=== PATIENT | male | born 1960 | race Caucasian/White ===

== ENCOUNTER 2020-07-14 14:12 | Emergency (ER) | payer OTHER, SELFPAY ==
[2020-07-14 14:22] VITALS: BP 132/88; PULSE 115; RESP 14; TEMP 37.3; O2SAT 98; BMI 17.7
--- NOTE | 2020-07-14 14:27 | XR_ITS ---
WS: [id number] EXAM: AP CHEST: PORTABLE UPRIGHT DATE OF EXAM: 07/14/2020, 1433 hours COMPARISON: Chest x-ray from 11/15/2014 HISTORY: Patient is 60 years old with generalized weakness and shortness of breath. FINDINGS: The cardiac silhouette is normal in size. The mediastinal contours are normal. The pulmonary vas cularity is normal. Chronic lung changes are demonstrated. Lungs are clear of consolidation. There is no effusion or pneumothorax. Appears to be old rib fracture deformity anterior inferior left lowe r chest. Small retrocardiac hiatal hernia is suspected. Old distal right clavicle fracture noted. Ne w since 2014. XR/XR chest 1V portable [id number] IMPRESSION: Chronic lung changes. No acute pulmonary disease.
--- NOTE | 2020-07-14 14:28 | CT_ITS ---
WS: [id number] CT ABDOMEN AND PELVIS WITH CONTRAST HISTORY: Abdominal pain. TECHNIQUE: Imaging performed of the abdomen and pelvis with IV contrast. Single phase imaging of the abdomen. Coronal and sagittal reformats are submitted. All CT scans at [facility] use at least one of these dose optimization techniques: automated exposure control; mA and/or kV adjustment per patient size (includes targeted exams where dose is matched to clinical indication); or iterativ e reconstruction. IV CONTRAST: Omnipaque 300; 95 mL IV. Oral contrast: No DLP: 433.46 mGy.cm COMPARISON: None available. Lower thorax: Severe emphysema at the lung bases. Heart is normal size. Small hiatal hernia. Healed r ib fracture posterior lateral lower LEFT thorax. Liver/biliary system: Mild hepatomegaly. Significant abnormal appearance of the liver. There is decre ased attenuation with enhancement throughout the liver. No focal mass. There is adjacent perihepatic fluid. No bile duct dilatation. Portal vein sagittal enhances. Gallbladder: Mildly hydropic gallbladder with no stones or adjacent wall thickening. Variability and heterogeneity within the gallbladder may be due to sludge. Small stones not completely excluded. Pancreas: Normal. Spleen: Normal. Adrenal glands: Normal. Right kidney: Normal. Left kidney: Normal. Aorta: Moderate atherosclerosis with no aneurysm. Plaque is causing a moderate stenosis in the distal aorta. Heavy calcification extends into the common iliac arteries. Lymphadenopathy: None. Free fluid: Small amount of free fluid adjacent to the liver and spleen and along the paracolic gutte rs into the pelvis. There is a small amount of mesenteric edema. GI tract: No obstruction. Small amount of mucosal edema in the RIGHT colon. Abdominal wall: Fat-containing umbilical hernia. Pelvis: Moderate amount of free fluid. Urinary bladder is moderately well distended. No adenopathy. Bones: Prior lumbar fusion at L4-5. CT/CT abdomen pelvis w con* [id number] IMPRESSION: 1. Markedly abnormal appearance of the liver. Probably due to hepatic congesti on, steatosis and cirrhosis. 2. No bile duct dilatation. 3. Small amount of ascites. 4. Mildly hydropic gallbladder with no stones identified by CT. Probably on e basis of hepatocellular disease. 5. Severe emphysema.
--- NOTE | 2020-07-14 14:28 | CT_ITS ---
WS: [id number] CT HEAD NONCONTRAST HISTORY: weakness TECHNIQUE: Contiguous axial imaging performed through the brain in 2.5 mm imaging. Bone and soft tiss ue windows. Sagittal and coronal reformats reviewed. All CT scans at [facility] use at ast one of these dose optimization techniques: automated exposure control; mA and/or kV adjustment pe r patient size (includes targeted exams where dose is matched to clinical indication); or iterative r econstruction. DLP: 768.41 mGy.cm COMPARISON: None available. No acute intracranial hemorrhage, midline shift or mass effect. Mild atrophy and mild chronic microvascular ischemic disease. No prior infarcts. Ventricles: Normal size with no hydrocephalus. No inferior displacement of cerebellar tonsils. Paranasal sinuses: Complete opacification of the RIGHT maxillary sinus with extension into the ethmoi d air cells. There is mild expansion of the ethmoid air cells and the maxillary sinus cavity on the R IGHT. Complete opacification of the RIGHT frontal sinus. Mastoid air cells: Well pneumatized. Calvarium and scalp: Skull is intact with no soft tissue edema or swelling. CT/CT head wo con* [id number] IMPRESSION: 1. No acute intracranial hemorrhage or edema. 2. Mild atrophy and mild chronic microvascular ischemic disease. 3. Mild expansion of the RIGHT maxillary and ethmoid air cells with extension into the RIGHT frontal sinus. Fungal sinusitis, mucocele and polyp should be co nsidered. Recommend follow-up with ENT.
--- NOTE | 2020-07-14 14:28 | ECG_ITS ---
[facility] Test Date: 2020-07-14 Pat Name: Ramesh Henry Department: Room: Gender: Male Contact Center Director: : 1960 Requested By: Ijeoma Hsu Order Number: [id number] Darrell MD: Ozzy Foreman M.D. Measurements Intervals [place] Rate: 96 P: 77 UT: 119 QRS: 75 QRSD: 90 T: 95 QT: 385 QTc: 486 Interpretive Statements SINUS RHYTHM WITH SHORT UT INTERVAL WITH OCCASIONAL VENTRICULAR PREMATURE COMPLEXES NONSPECIFIC ST & T-WAVE ABNORMALITY Compared to ECG 11/15/2014 04:16:08 Ventricular premature complex(es) now present T-wave abnormality now present Sinus tachycardia no longer present Electronically Signed On 07-14-2020 20:52:30 CDT by Ozzy Foreman M.D. [id number]
--- NOTE | 2020-07-14 14:44 | W.ED.WEAKNES ---
HPI - Weakness General: Chief complaint: Weakness Stated complaint: WEAKNESS Time Seen by Provider: 07/14/20 14:26 Source: patient and EMS Mode of arrival: EMS Limitations: no limitations History of Present Illness: HPI Narrative: 60-year-old male who is a chronic alcoholism. He states that over the last week he has had increasing weakness has not had any energy and has not been eating. He states he had difficulty even getting up. He does have difficulty walking at baseline and uses a walker. He denies any fever or vomiting. He states he has noticed he had some jaundice over the last 3 to 4 days. Associated symptoms: Denies chest pain, chills, dysuria, easy bruising, fever(s), nausea or vomiting Review of Systems Const: Denies: fever(s), chills, body aches or change in appetite Eyes: Denies: blurry vision or eye discomfort ENMT: Denies: throat pain or dental pain Card: Denies: chest pain Resp: Denies: dyspnea GI: Denies: abdominal pain, nausea, vomiting or diarrhea : Denies: dysuria Musc: Denies: neck pain or back pain Skin/Breast: Denies: rash Neuro: Reports: weakness in extremities Psych: Denies: depression Aaron/Lymph: Denies: easy bruising All/Imm: Denies: urticaria PFSH ED PFSH: Family History (Updated 01/01/20 @ 10:47 by AGUILAR Amaro) Other Colon polyp Physical Exam Const: COMMON NORMALS: no acute distress and patient oriented x3 GENERAL APPEARANCE: ill appearing HENMT: COMMON NORMALS: normocephalic and atraumatic HEAD & SCALP: normocephalic and atraumatic Eye: COMMON NORMALS: Equal, round and reactive pupils present and EOMs intact bilaterally PUPIL: Yes Equal, round and reactive pupils present Neck/C-Spine: COMMON NORMALS: full ROM and supple Chest: COMMONS NORMALS: normal inspection of the chest and normal palpation of entire chest wall Resp: COMMON NORMALS: normal respiratory effort, No retractions, No use of accessory muscles and clear to auscultation bilaterally AUSCULTATION: clear to auscultation bilaterally Cardio: COMMON NORMALS: regular rate, regular rhythm and No murmurs present (Cardio) RATE: regular rate RHYTHM: regular rhythm GI: COMMON NORMALS: Normal to inspection, nondistended, normoactive bowel sounds present, Soft to palpation, non-tender and no masses PALPATION: Yes Soft to palpation Extremity: COMMON NORMALS: normal to inspection and full ROM Neuro: COMMON NORMALS: patient oriented x3, moves all extremities and no focal motor deficits Psych: COMMON NORMALS: mental status grossly normal, Normal thought process present and cooperative THOUGHT PROCESS: Normal thought process present Skin: COMMON NORMALS: no rashes or lesions noted and no wounds NARRATIVE SKIN EXAM: Jaundiced GENERAL SKIN EXAM: no rashes or lesions noted Course Vital Signs: Vital signs: Vital Signs Temperature 99.2 F 07/14/20 14:22 Pulse Rate 115 H 07/14/20 14:22 Respiratory Rate 14 07/14/20 14:22 Blood Pressure 132/88 07/14/20 14:22 Pulse Oximetry 98 07/14/20 14:22 MDM - Weakness MDM Narrative: Medical decision making narrative: Patient presents here with generalized weakness and was found to have elevated bilirubin likely from end-stage t liver disease and cirrhosis. Patient also has a elevated lactate 8.5. Patient has no signs of acute infection. Patient's vitals here been stable. Will transfer to [facility] for higher level of care as we do not have hepatology at this time. Patient has been stable while here. Lab Data: Labs: Lab Results 07/14/20 07/14/20 07/14/20 Range/Units 14:43 14:43 14:43 WBC 7.8 (4.0-10.0) 10^3/ uL RBC 3.49 L (4.1-5.3) 10^6/u L Hgb 13.2 (11.7-16.6) g/dL Hct 36.8 L (42.0-52.0) % MCV 105.4 H (80-94) fL MCH 37.8 H (28.0-34.0) pg MCHC 35.9 (30.0-36.0) g/dL RDW 13.2 (12.1-15.1) % Plt Count 104 L (130-400) 10^3/c mm MPV 11.3 H (7.4-10.4) fL Neut % (Auto) 71.6 % Lymph % (Auto) 11.2 % [place] % (Auto) 12.0 % Eos % (Auto) 4.0 % Baso % (Auto) 0.6 % Neut # (Auto) 5.55 (1.8-7.7) 10^3/u L Lymph # (Auto) 0.9 (0.8-4.8) 10^3/u L [place] # (Auto) 0.9 (0.2-0.9) 10^3/u L Eos # (Auto) 0.3 (0.0-0.8) 10^3/u L Baso # (Auto) 0.1 (0.0-0.1) 10^3/u L Nucleated RBC % (a uto) 0 % Nucleated RBCs # 0.0 /100WBC PT 17.00 H (12.1-14.9) SECO NDS INR 1.36 H (0.8-1.2) Sodium 133 L (136-145) mmol/L Potassium 2.5 L* (3.5-5.1) mmol/L Chloride 80 L (98-107) mmol/L Carbon Dioxide 29 (22-29) mmol/L Anion Gap 26.5 H (5-19) BUN 5 L (6-20) mg/dL Creatinine 0.6 L (0.7-1.2) mg/dL GFR Calculation 137.9 H (90-130) mL/min Glucose 85 (65-115) mg/dL Calculated Osmolal ity 271 L (285-295) mOsm/k g Lactate (0.5-2.2) mmol/L Calcium 8.2 L (8.5-10.5) mg/dL Total Bilirubin 11.0 H* (0.15-1.2) mg/dL AST 254 H (0-40) U/L ALT 66 H (0-41) U/L Alkaline Phosphata se 172 H (40-130) IU/L Total Protein 6.2 L (6.6-8.7) g/dL Albumin 3.6 (3.5-5.2) g/dL Globulin 2.6 (1.3-4.6) g/dL Lipase 22 (13-60) U/L Urine Color (Yellow) Urine Appearance (CLEAR) Urine pH (5-7) Ur Specific Gravit y (1.005-1.030) Urine Protein (Negative) Urine Glucose (UA) (Normal) Urine Ketones (Negative) Urine Blood (Negative) Urine Nitrate (Negative) Urine Bilirubin (Negative) Urine Urobilinogen (Negative) mg/dL Ur Leukocyte Katherine ase (Negative) Urine RBC (0-2) /hpf Urine WBC (0-5) /hpf Ur Squamous Epith Cells (0-5) /hpf Amorphous Sediment Urine Bacteria (NONE) /hpf Hyaline Casts /lpf Ethyl Alcohol 30 H (0-10) mg/dL Hepatitis A IgM Ab (Nonreactive) Hep Bs Antigen (Nonreactive) Hep Bs Antibody (0-8.5) Hep B Core Total A b (Nonreactive) Hepatitis C Antibo dy (Nonreactive) 07/14/20 07/14/20 07/14/20 Range/Units 14:43 16:20 16:24 WBC (4.0-10.0) 10^3/ uL RBC (4.1-5.3) 10^6/u L Hgb (11.7-16.6) g/dL Hct (42.0-52.0) % MCV (80-94) fL MCH (28.0-34.0) pg MCHC (30.0-36.0) g/dL RDW (12.1-15.1) % Plt Count (130-400) 10^3/c mm MPV (7.4-10.4) fL Neut % (Auto) % Lymph % (Auto) % [place] % (Auto) % Eos % (Auto) % Baso % (Auto) % Neut # (Auto) (1.8-7.7) 10^3/u L Lymph # (Auto) (0.8-4.8) 10^3/u L [place] # (Auto) (0.2-0.9) 10^3/u L Eos # (Auto) (0.0-0.8) 10^3/u L Baso # (Auto) (0.0-0.1) 10^3/u L Nucleated RBC % (a uto) % Nucleated RBCs # /100WBC PT (12.1-14.9) SECO NDS INR (0.8-1.2) Sodium (136-145) mmol/L Potassium (3.5-5.1) mmol/L Chloride (98-107) mmol/L Carbon Dioxide (22-29) mmol/L Anion Gap (5-19) BUN (6-20) mg/dL Creatinine (0.7-1.2) mg/dL GFR Calculation (90-130) mL/min Glucose (65-115) mg/dL Calculated Osmolal ity (285-295) mOsm/k g Lactate 9.1 H* (0.5-2.2) mmol/L Calcium (8.5-10.5) mg/dL Total Bilirubin (0.15-1.2) mg/dL AST (0-40) U/L ALT (0-41) U/L Alkaline Phosphata se (40-130) IU/L Total Protein (6.6-8.7) g/dL Albumin (3.5-5.2) g/dL Globulin (1.3-4.6) g/dL Lipase (13-60) U/L Urine Color [place] (Yellow) Urine Appearance Hazy A (CLEAR) Urine pH 6.5 (5-7) Ur Specific Gravit y 1.010 (1.005-1.030) Urine Protein Neg (Negative) Urine Glucose (UA) Norm (Normal) Urine Ketones 1+ H (Negative) Urine Blood 2+ H (Negative) Urine Nitrate Negative (Negative) Urine Bilirubin 2+ H (Negative) Urine Urobilinogen 12 H (Negative) mg/dL Ur Leukocyte Katherine ase Negative (Negative) Urine RBC 0-4 H (0-2) /hpf Urine WBC 5-10 H (0-5) /hpf Ur Squamous Epith Cells 15-25 H (0-5) /hpf Amorphous Sediment Not Reportable Urine Bacteria Trace (NONE) /hpf Hyaline Casts 25-40 H /lpf Ethyl Alcohol (0-10) mg/dL Hepatitis A IgM Ab Non-reactive (Nonreactive) Hep Bs Antigen Non-reactive (Nonreactive) Hep Bs Antibody 3.5 (0-8.5) Hep B Core Total A b Non-reactive (Nonreactive) Hepatitis C Antibo dy Non-reactive (Nonreactive) Imaging Data^: CXR: Radiologist's impression: [address] [address] XRay Report Signed Patient: Ramesh Henry Unit #: [id number] : 1960 Age/Sex: 60 / M ADM Date: 07/14/20 Loc: ER Room/Bed: Attending Dr: Ordering Provider/Ordering MD: Ijeoma Hsu MD Date of Service: 07/14/20 Procedure(s): XR chest 1V portable [id number] Accession Number(s): [id number] Report Number: [id number] WS: [id number] EXAM: AP CHEST: PORTABLE UPRIGHT DATE OF EXAM: 07/14/2020, 1433 hours COMPARISON: Chest x-ray from 11/15/2014 HISTORY: Patient is 60 years old with generalized weakness and shortness of breath. FINDINGS: The cardiac silhouette is normal in size. The mediastinal contours are normal. The pulmonary vascularity is normal. Chronic lung changes are demonstrated. Lungs are clear of consolidation. There is no effusion or pneumothorax. Appears to be old rib fracture deformity anterior inferior left lower chest. Small retrocardiac hiatal hernia is suspected. Old distal right clavicle fracture noted. New since 2014. XR/XR chest 1V portable [id number] IMPRESSION: Chronic lung changes. No acute pulmonary disease. CT Head: Radiologist's impression: [place] [address] CT Scan Report Signed Patient: Ramesh Henry Unit #: [id number] : 1960 Age/Sex: 60 / M ADM Date: 07/14/20 Loc: ER Room/Bed: Attending Dr: Ordering Provider/Ordering MD: Ijeoma Hsu MD Date of Service: 07/14/20 Procedure(s): CT head wo con* [id number] Accession Number(s): [id number] Report Number: [id number] WS: [id number] CT HEAD NONCONTRAST HISTORY: weakness TECHNIQUE: Contiguous axial imaging performed through the brain in 2.5 mm imaging. Bone and soft tissue windows. Sagittal and coronal reformats reviewed. All CT scans at [facility] use at least one of these dose optimization techniques: automated exposure control; mA and/or kV adjustment per patient size (includes targeted exams where dose is matched to clinical indication); or iterative reconstruction. DLP: 768.41 mGy.cm COMPARISON: None available. No acute intracranial hemorrhage, midline shift or mass effect. Mild atrophy and mild chronic microvascular ischemic disease. No prior infarcts. Ventricles: Normal size with no hydrocephalus. No inferior displacement of cerebellar tonsils. Paranasal sinuses: Complete opacification of the RIGHT maxillary sinus with extension into the ethmoid air cells. There is mild expansion of the ethmoid air cells and the maxillary sinus cavity on the RIGHT. Complete opacification of the RIGHT frontal sinus. Mastoid air cells: Well pneumatized. Calvarium and scalp: Skull is intact with no soft tissue edema or swelling. CT/CT head wo con* [id number] IMPRESSION: 1. No acute intracranial hemorrhage or edema. 2. Mild atrophy and mild chronic microvascular ischemic disease. 3. Mild expansion of the RIGHT maxillary and ethmoid air cells with extension into the RIGHT frontal sinus. Fungal sinusitis, mucocele and polyp should be considered. Recommend follow-up with ENT. CT Abd/Pel: Radiologist's impression: [place] [address] CT Scan Report Signed Patient: Ramesh Henry Unit #: [id number] : 1960 Age/Sex: 60 / M ADM Date: 07/14/20 Loc: ER Room/Bed: Attending Dr: Ordering Provider/Ordering MD: Ijeoma Hsu MD Date of Service: 07/14/20 Procedure(s): CT abdomen pelvis w con* [id number] Accession Number(s): [id number] Report Number: [id number] WS: [id number] CT ABDOMEN AND PELVIS WITH CONTRAST HISTORY: Abdominal pain. TECHNIQUE: Imaging performed of the abdomen and pelvis with IV contrast. Single phase imaging of the abdomen. Coronal and sagittal reformats are submitted. All CT scans at [facility] use at least one of these dose optimization techniques: automated exposure control; mA and/or kV adjustment per patient size (includes targeted exams where dose is matched to clinical indication); or iterative reconstruction. IV CONTRAST: Omnipaque 300; 95 mL IV. Oral contrast: No DLP: 433.46 mGy.cm COMPARISON: None available. Lower thorax: Severe emphysema at the lung bases. Heart is normal size. Small hiatal hernia. Healed rib fracture posterior lateral lower LEFT thorax. Liver/biliary system: Mild hepatomegaly. Significant abnormal appearance of the liver. There is decreased attenuation with enhancement throughout the liver. No focal mass. There is adjacent perihepatic fluid. No bile duct dilatation. Portal vein sagittal enhances. Gallbladder: Mildly hydropic gallbladder with no stones or adjacent wall thickening. Variability and heterogeneity within the gallbladder may be due to sludge. Small stones not completely excluded. Pancreas: Normal. Spleen: Normal. Adrenal glands: Normal. Right kidney: Normal. Left kidney: Normal. Aorta: Moderate atherosclerosis with no aneurysm. Plaque is causing a moderate stenosis in the distal aorta. Heavy calcification extends into the common iliac arteries. Lymphadenopathy: None. Free fluid: Small amount of free fluid adjacent to the liver and spleen and along the paracolic gutters into the pelvis. There is a small amount of mesenteric edema. GI tract: No obstruction. Small amount of mucosal edema in the RIGHT colon. Abdominal wall: Fat-containing umbilical hernia. Pelvis: Moderate amount of free fluid. Urinary bladder is moderately well distended. No adenopathy. Bones: Prior lumbar fusion at L4-5. CT/CT abdomen pelvis w con* [id number] IMPRESSION: 1. Markedly abnormal appearance of the liver. Probably due to hepatic congestion, steatosis and cirrhosis. 2. No bile duct dilatation. 3. Small amount of ascites. 4. Mildly hydropic gallbladder with no stones identified by CT. Probably on the basis of hepatocellular disease. 5. Severe emphysema. EKG Data^: EKG 1: Attestation: I personally reviewed and interpreted this EKG as follows: EKG interpretation date: 07/14/20 EKG interpretation time: 15:16 Interpretation: nsr hr [address] and t wave abnormalities qrs 90 qtc 438 Critical Care Time Critical Care Time: Critical Care Time: Yes Total Critical Care Time: 35 Attestation: This case had a high probability of a clinically significant, sudden, or life threatening deterioration of this patient's condition which required my full and direct attention, intervention and personal management. Discharge Plan Discharge Patient Disposition: Xfer Other Clinical Impression: Cirrhosis, Acidosis, lactic, Elevated bilirubin Condition: Stable Coding Level of Care Code ED Second Time Worker for Chg Fwd Exam Comprehensive
[2020-07-14] MEDS: sodium chloride 0.9% 1,000 ML 999 ML IV (14:51)
[2020-07-14 14:58] LABS: Basophils # 0.1 10^3/uL (0.0-0.1); Basophils % 0.6 %; Eosinophils # 0.3 10^3/uL (0.0-0.8); Hematocrit 36.8 % (42.0-52.0); Hemoglobin 13.2 g/dL (11.7-16.6); Lymphocytes # 0.9 10^3/uL (0.8-4.8); Lymphocytes % 11.2 %; Mean Corpuscular HGB Conc 35.9 g/dL (30.0-36.0); Mean Corpuscular Hemoglobin 37.8 pg (28.0-34.0); Mean Corpuscular Volume 105.4 fL (80-94); Mean Platelet Volume 11.3 fL (7.4-10.4); Monocytes # 0.9 10^3/uL (0.2-0.9); Neutrophils # 5.55 10^3/uL (1.8-7.7); Neutrophils % 71.6 %; Nucleated Red Blood Cells % 0 %; Platelet Count 104 10^3/cmm (130-400); Red Blood Count 3.49 10^6/uL (4.1-5.3); Red Cell Distribution Width 13.2 % (12.1-15.1); White Blood Count 7.8 10^3/uL (4.0-10.0)
[2020-07-14 15:12] LABS: Alanine Aminotransferase 66 U/L (0-41); Albumin Level 3.6 g/dL (3.5-5.2); Alcohol Level 30 mg/dL (0-10); Alkaline Phosphatase 172 IU/L (40-130); Anion Gap 26.5 (5-19); Aspartate Amino Transferase 254 U/L (0-40); Blood Urea Nitrogen 5 mg/dL (6-20); Calcium 8.2 mg/dL (8.5-10.5); Carbon Dioxide 29 mmol/L (22-29); Chloride 80 mmol/L (98-107); Creatinine Clr Calc Pharmacy 102.0581; Globulin 2.6 g/dL (1.3-4.6); Glomerular Filtration Rate 137.9 mL/min (90-130); Glucose 85 mg/dL (65-115); Lipase 22 U/L (13-60); Osmolality Calculated 271 mOsm/kg (285-295); Sodium 133 mmol/L (136-145); Total Protein 6.2 g/dL (6.6-8.7)
[2020-07-14 15:15] LABS: Lactate (Lactic Acid level) 9.1 mmol/L (0.5-2.2); Potassium 2.5 mmol/L (3.5-5.1)
--- NOTE | 2020-07-14 15:25 | US_ITS ---
WS: [id number] EXAM: RIGHT UPPER QUADRANT ULTRASOUND DATE OF EXAMINATION: 07/14/2020, 1559 hours COMPARISON: None. HISTORY: 60 years old with abdominal pain. FINDINGS: Pancreas is partially obscured by bowel gas. Only the central proximal body is seen and appears unrem arkable. Proximal inferior vena cava and aorta are normal in caliber. Liver echotexture is coarsened and increased in echogenicity suggesting slight fatty infiltration. Li rock does not appear to be enlarged. Portal venous flow is demonstrated by color flow and spectral Dop pler with flow towards the liver. The gallbladder is normally distended and full of sludge and stones. Common bile duct diameter is estimated at 0.7 mm in maximum transverse caliber. The right kidney is estimated at 9.6 x 6.4 x 6.0 cm in size. Cortical thickness and echotexture are n ormal. No mass or obstructive uropathy is seen. There is some free fluid within the right and left lower quadrants of uncertain significance. US/US gall bladder [id number] IMPRESSION: Imaging findings felt to represent fatty infiltration in the liver. Gallbladder is full of sludge. Common bile duct 7 mm transverse caliber. Small amount of free fluid in the abd omen.
[2020-07-14] MEDS: iohexol 300 mg/mL 100 mL Btl IV (15:37)
[2020-07-14 15:54] LABS: INR 1.36 (0.8-1.2)
[2020-07-14] MEDS: potassium chloride ER 10 mEq Tablet 40 MEQ PO (16:00)
[2020-07-14] MEDS: piperacillin-tazobactam 3.375 GM in sodium chloride 0.9% (plus) 50 ML IV (16:02)
[2020-07-14] MEDS: vancomycin 1,000 MG in sodium chloride 0.9% 250 ML 250 MG IV (16:02)
[2020-07-14 17:36] LABS: Bilirubin Urine 2+ (Negative); Blood Urine 2+ (Negative); Glucose Urine UA Norm (Normal); Ketones Urine 1+ (Negative); Nitrate Urine Negative (Negative); Protein Urine Neg (Negative); Urine Appearance Hazy (CLEAR); Urine Color Orange (Yellow); pH Urine 6.5 (5-7)
[2020-07-14 17:37] LABS: Add Urine Microscopic? YES; Leukocyte Esterase Urine Negative (Negative); Urobilinogen Urine 12 mg/dL (Negative)
[2020-07-14 17:49] LABS: Hyaline Casts Urine 25-40 /lpf
[2020-07-14 17:50] LABS: Add Urine Culture? No; Bacteria Urine TRACE /hpf; RBC Urine 0-4 /hpf (0-2); Squamous Epithelial Cell Urine 15-25 /hpf (0-5)
[2020-07-14 17:59] LABS: Hepatitis A Antibody IgM Non-Reactive (Nonreactive); Hepatitis B Core AB, Total Non-Reactive (Nonreactive); Hepatitis B Surface AB 3.5 (0-8.5); Hepatitis B Surface Antigen Non-Reactive (Nonreactive); Hepatitis C Virus Antibody Non-Reactive (Nonreactive)
--- NOTE | 2020-07-14 19:01 | PC.NURSE ---
Patient's brother at bedside waiting on transfer arrangements at this time. Patient is resting quietly.
[2020-07-14] MEDS: sodium chloride 0.9% 1,000 ML 100 ML IV (23:24)
[2020-07-15 00:03] VITALS: BP 103/72; PULSE 94; RESP 18; O2SAT 93
[2020-07-15 00:38] LABS: Potassium 2.9 mmol/L (3.5-5.1)
--- NOTE | 2020-07-15 00:42 | PC.NURSE ---
Assumed care of patient at 0010, 07/15/20 from NAFISA Rice
[2020-07-15 00:44] VITALS: BP 103/72; PULSE 98; RESP 16; O2SAT 93
== END 2020-07-15 01:15 | disposition other institution (70) ==
PROVIDERS: Emergency Provider Emergency Medicine
DX: K74.60 Unspecified cirrhosis of liver (principal); E87.2 Acidosis; R74.8 Abnormal levels of other serum enzymes
CPT/HCPCS: 12345; 70450; 71045; 74177; 76705; 80053; 80307; 81001; 83605; 83690; 84132; 85025; 85610; 86705; 86706; 86709; 86803; 87340; 93005; 96361; 96365; 96367; 99283; 99285; J2543; J3370; J7030; J7050; Q9967

== ENCOUNTER → 2020-09-11 15:21 | Outpatient (BNVA) | payer OTHER, SELFPAY | PROVIDERS: Visit Provider Internal Medicine | DX: Z20.828 Contact with and (suspected) exposure to other viral communicable diseases (principal); Z01.812 Encounter for preprocedural laboratory examination | CPT/HCPCS: 87635 ==

== ENCOUNTER 2022-09-22 20:55 | Emergency (ER) | payer OTHER, SELFPAY ==
--- NOTE | 2022-09-22 21:20 | XRR_ITS ---
PROCEDURE INFORMATION: Exam: XR Chest Exam date and time: 09/22/2022 10:27 PM Age: 62 years old Clinical indication: Shortness of breath; Additional info: SOB TECHNIQUE: Imaging protocol: Radiologic exam of the chest. Views: 1 view. COMPARISON: CR XR chest 1V portable [id number] 07/14/2020 2:32 PM FINDINGS: Lungs: Mild diffuse coarsening of the lung parenchyma. Left basilar scarring. No consolidation. Pleural spaces: Unremarkable. No pleural effusion. No pneumothorax. Heart/Mediastinum: Unremarkable. No cardiomegaly. Bones/joints: Unremarkable. XR/XR chest 1V portable [id number] IMPRESSION: No acute findings.
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
[2022-09-22 21:36] VITALS: BP 147/86; PULSE 104; RESP 14; TEMP 37.2; O2SAT 100
--- NOTE | 2022-09-22 21:51 | ECG_ITS ---
[facility] Test Date: 2022-09-22 Pat Name: Ramesh Henry Department: Room: Gender: Male Home Health Cna: : [id number] Requested By: Ijeoma Hsu Order Number: [id number] Darrell MD: Butch Hurd M.D. Measurements Intervals [place] Rate: 102 P: 263 DE: 102 QRS: 82 QRSD: 83 T: 37 QT: 364 QTc: 475 Interpretive Statements JUNCTIONAL TACHYCARDIA NONSPECIFIC T-WAVE ABNORMALITY Poor R wave progression ABNORMAL RHYTHM ECG Compared to ECG 07/14/2020 15:16:04 Junctional tachycardia now present Sinus rhythm no longer present Short DE interval no longer present T-wave abnormality still present Electronically Signed On 09-23-2022 12:35:26 PRINTER APPRENTICE by Butch Hurd M.D. [id number]
[2022-09-22 22:06] VITALS: BP 132/78; PULSE 98; RESP 16; TEMP 36.9; O2SAT 100
[2022-09-22 22:37] LABS: Basophils % 0.7 %; Hemoglobin 12.1 g/dL (11.7-16.6); Lymphocytes # 1.1 10^3/uL (0.8-4.8); Lymphocytes % 27.4 %; Mean Corpuscular HGB Conc 35.6 g/dL (30.0-36.0); Mean Corpuscular Hemoglobin 37.1 pg (28.0-34.0); Mean Corpuscular Volume 104.3 fl (80-94); Mean Platelet Volume 10.5 fL (7.4-10.4); Monocytes # 0.3 10^3/uL (0.2-0.9); Monocytes % 8.3 %; Neutrophils # 2.61 10^3/uL (1.8-7.7); Neutrophils % 63.4 %; Nucleated Red Blood Cells % 0 %; Platelet Count 80 10^3/cmm (130-400); Red Blood Count 3.26 10^6/uL (4.1-5.3); White Blood Count 4.1 10^3/uL (4.0-10.0)
[2022-09-22 23:04] LABS: Alanine Aminotransferase 25 U/L (0-41); Albumin Level 3.9 g/dL (3.5-5.2); Alkaline Phosphatase 87 U/L (40-130); Anion Gap 20.9 (5-19); Aspartate Amino Transferase 69 U/L (0-40); Blood Urea Nitrogen 6 mg/dL (8-23); Calcium 8.3 mg/dL (8.5-10.5); Carbon Dioxide 25 mmol/L (22-29); Chloride 96 mmol/L (98-107); Globulin 1.8 g/dL (1.3-4.6); Glomerular Filtration Rate 218.7 mL/min (90-130); Glucose 74 mg/dL (65-115); NT Pro B Type Natriuretic Pept 64 pg/mL (0-125); Osmolality Calculated 282 mOsm/kg (285-295); Potassium 3.9 mmol/L (3.5-5.1); Sodium 138 mmol/L (136-145); Total Bilirubin 0.6 mg/dL (0.15-1.2); Total Protein 5.7 g/dL (6.6-8.7)
[2022-09-22 23:06] VITALS: BP 142/80; PULSE 90; RESP 16; TEMP 36.9; O2SAT 100
[2022-09-22 23:30] VITALS: BP 137/90; PULSE 90; RESP 16; TEMP 36.9; O2SAT 95
[2022-09-23] VITALS: BP 133/94; PULSE 90; RESP 16; TEMP 36.9; O2SAT 95
[2022-09-23 00:45] VITALS: BP 133/94; PULSE 90; RESP 16; TEMP 36.9; O2SAT 95
== END 2022-09-23 00:50 | disposition home or self-care (01) ==
PROVIDERS: Emergency Provider Emergency Medicine
DX: R06.00 Dyspnea, unspecified (principal); J44.9 Chronic obstructive pulmonary disease, unspecified
CPT/HCPCS: 71045; 80053; 83880; 85025; 93005; 99285

== ENCOUNTER 2022-10-28 15:25 | Emergency (ER) | payer OTHER, SELFPAY ==
[2022-10-28 17:29] VITALS: BP 128/84; PULSE 95; RESP 18; TEMP 36.4; O2SAT 98; BMI 17.4
--- NOTE | 2022-10-28 17:34 | XRR_ITS ---
PROCEDURE INFORMATION: Exam: XR Left Foot Exam date and time: 10/28/2022 6:50 PM Age: 62 years old Clinical indication: Injury or trauma; Fall; Blunt trauma and laceration; Foot; Left; Foreign body involvement not specified; Injury date: 5 days ago; Injury details: Fell TECHNIQUE: Imaging protocol: Radiologic exam of the Left foot. Views: 1 or 2 views. COMPARISON: No relevant prior studies available. FINDINGS: Bones/joints: Deformity of the proximal 5th phalanx suggests healed fracture. Joint space narrowing at the 1st interphalangeal and metacarpophalangeal joints. No acute fracture. Soft tissues: Vascular calcification is present. No radiopaque foreign body is visible. XR/XR foot LT 2V [id number] IMPRESSION: No acute findings.
--- NOTE | 2022-10-28 19:27 | ED_ITS ---
HPI - Fall General: Chief Complaint: Fall Stated Complaint: Va sent for fall, left foot lac Time Seen by Provider: 10/28/22 19:23 History of Present Illness: Patient is a 62-year-old male that comes to the ED after injury from fall. Injury occurred 5 days ago. Patient says he fell when walking through his front door. Patient mostly uses a wheelchair at home but tries to use a walker when he can. After his fall he has swelling and pain to his left chavez and left foot. He rates his pain currently an 8 out of 10. He has an abrasion on anterior aspect of left chavez and abrasion to foot. Patient says he is up-to-date on his tetanus. Denies any head trauma or loss of consciousness. Associated symptoms-after fall: Denies abdominal pain, chest pain, headache(s), hematuria or neck pain Review of Systems Const: Denies: fever(s), chills or fatigue Eyes: Denies: change in vision or eye discomfort ENMT: Denies: throat pain, odynophagia, nasal discharge or nasal congestion Card: Denies: chest pain, palpitations, edema, swelling of feet/ankles, dyspnea on exertion or orthopnea Resp: Denies: dyspnea, productive cough or non-productive cough GI: Denies: abdominal pain, nausea, vomiting, diarrhea, constipation or shira tochezia : Denies: flank pain, difficulty urinating, dysuria or hematuria Musc: Reports: extremity pain (Left lower leg) and extremity swelling (Left lower leg and left foot); Denies: neck pain or back pain Skin/Breast: Reports: new lesions (Abrasions to left chavez and left foot.); Denies: rash Neuro: Denies: headache(s), numbness in extremities or weakness in extremities [facility] ED PFSH: Medical History (Updated 10/29/22 @ 01:28 by VISHAL Chambers) Atrial flutter COPD (chronic obstructive pulmonary disease) Essential (primary) hypertension Family History (Updated 01/01/20 @ 10:47 by AGUILAR Amaro) Other Colon polyp Social History (Updated 09/22/22 @ 21:25 by Ijeoma Hsu MD) Alcohol intake: current Physical Exam Const: COMMON NORMALS: no acute distress, patient oriented x3 and alert GENERAL APPEARANCE: cooperative HENMT: COMMON NORMALS: normocephalic HEAD & SCALP: normocephalic MOUTH: Normal oral and palatal mucosa present THROAT: posterior oropharynx normal and uvula midline Neck/C-Spine: COMMON NORMALS: supple GENERAL: Yes normal visual inspection Resp: COMMON NORMALS: normal respiratory effort, No retractions, No use of accessory muscles and clear to auscultation bilaterally AUSCULTATION: clear to auscultation bilaterally Cardio: COMMON NORMALS: regular rate, regular rhythm, S1 normal heart sound present, S2 normal heart sound present, No gallops present (Cardio), No clicks present (Cardio), No murmurs present (Cardio) and Peripheral pulses 2+ throughout RATE: regular rate RHYTHM: regular rhythm HEART SOUNDS: S1 normal heart sound present and S2 normal heart sound present PERIPHERAL PULSES: Peripheral pulses 2+ throughout GI: COMMON NORMALS: Normal to inspection, nondistended, normoactive bowel sounds present, Soft to palpation, non-tender and no masses PALPATION: Yes Soft to palpation : COMMON NORMALS: Yes no CVA tenderness BLADDER/KIDNEY EXAM: Yes no CVA tenderness Back/Pelvis: COMMON NORMALS: no CVA tenderness Extremity: NARRATIVE EXTREMITY EXAM: Left leg?anterior aspect of chavez has large abrasion that is healing. Erythema but no warmth or purulent drainage noted. Mild tenderness to mid tibia region. Left foot?2+ pitting edema in foot with erythema but no warmth. Small superficial abrasion on dorsal aspect of foot. Tenderness to midfoot region. Neuro: COMMON NORMALS: patient oriented x3 SENSORIUM/ORIENTATION: Yes alert GAIT: Yes Normal gait present Skin: GENERAL SKIN EXAM: dry skin Course Vital Signs: Vital signs: Vital Signs Temperature 97.6 F 10/28/22 17:29 Pulse Rate 95 10/28/22 17:29 Respiratory Rate 18 10/28/22 17:29 Blood Pressure 128/84 10/28/22 17:29 Pulse Oximetry 98 10/28/22 17:29 Oxygen Delivery Me thod 10/28/22 17:29 MDM - Fall Medical Decision Making Patient is a 62-year-old male comes to the ED with left lower extremity pain and swelling after fall injury 5 days ago. Patient is disabled and mostly uses a wheelchair at home but occasionally uses walker. Denies any head trauma or loss of consciousness. Vitals are stable. Left leg?anterior aspect of chavez has large abrasion that is healing. Erythema but no warmth or purulent drainage noted. Mild tenderness to mid tibia region. Left foot?2+ pitting edema in foot with erythema but no warmth. Small superficial abrasion on dorsal aspect of foot. Tenderness to midfoot region. X-ray of left foot and left tib-fib showed no acute fractures or findings. Patient was diagnosed with injury of left lower extremity and wound of left lower extremity and nurse cleaned up wounds and applied bandage on them. Patient was discharged home with a prescription for a prophylactic antibiotic to prevent any infection and a couple hydrocodone to help with pain. Patient was stable for discharge home and told to follow-up with PCP in the next week for reevaluation. Patient understood and agreed with plan. Lab Data Radiology Impressions Foot X-Ray 10/28/22 17:34 IMPRESSION: No acute findings. Tibia/Fibula X-Ray 10/28/22 19:28 IMPRESSION: No acute findings. Discharge Plan Discharge Patient Disposition: Home Clinical Impression: Injury of left lower extremity Qualifiers: Encounter type: initial encounter Qualified Code(s): S89.92XA - Unspecified injury of left lower leg, initial encounter Wound of left lower extremity Qualifiers: Encounter type: initial encounter Qualified Code(s): S81.802A - Unspecified open wound, left lower leg, initial encounter Condition: Stable Prescriptions: New cephalexin 500 mg capsule 500 mg PO Q6H 7 Days Qty: 28 0RF No Action lisinopril 20 mg Tablet 10 mg PO DAILY Rx Instructions: medication on pts va med list-pt and pts family states the pt only takes his medication when he thinks he needs it thiamine HCl (vitamin B1) 100 mg Tablet 100 mg PO DAILY Rx Instructions: medication on pts va med list-pt and pts family states the pt only takes his medication when he thinks he needs it Protonix 40 mg Tablet,Delayed Release (Dr/Ec) 40 mg PO BID Rx Instructions: medication on pts va med list-pt and pts family states the pt only takes his medication when he thinks he needs it metoprolol tartrate 50 mg Tablet 25 mg PO BID Rx Instructions: medication on pts va med list-pt and pts family states the pt only takes his medication when he thinks he needs it etodolac 400 mg Tablet 400 mg PO BID PRN (Reason: unknown) Rx Instructions: medication on pts va med list-pt and pts family states the pt only takes his medication when he thinks he needs it gabapentin 100 mg Capsule 200 mg PO TID Rx Instructions: medication on pts va med list-pt and pts family states the pt only takes his medication when he thinks he needs it albuterol sulfate 90 mcg/actuation Hfa Aerosol Inhaler 2 puff INHALATION QID PRN (Reason: Shortness Of Breath) Rx Instructions: medication on pts va med list-pt and pts family states the pt only takes his medication when he thinks he needs it budesonide-formoterol 80-4.5 mcg/actuation Hfa Aerosol Inhaler 2 puff INHALATION BID Rx Instructions: medication on pts va med list-pt and pts family states the pt only takes his medication when he thinks he needs it cholecalciferol (vitamin D3) [Vitamin D3] 50 mcg (2,000 unit) Tablet 2,000 unit PO DAILY Rx Instructions: medication on pts va med list-pt and pts family states the pt only takes his medication when he thinks he needs it rivaroxaban 20 mg Tablet 20 mg PO QPM Rx Instructions: medication on pts va med list-pt and pts family states the pt only takes his medication when he thinks he needs it Discharge Orders: Discharge ED (Routine); Ordered 10/28/22 Ordered By: Gian Cortez Referrals: [facility] [Primary Care Provider] - Discharge Diet: Regular Discharge Activity: Increase activity as tolerated Patient Instructions: Opioid Safety Activity Restrictions/Additional Instructions: Follow-up with medical provider as directed in the next 5 to 7 days for reevaluation. Make sure to clean wounds daily with soap and water and then apply triple antibiotic ointment and keep covered with bandage. Apply cold pack on left lower leg and elevate to help with symptoms. Take medications as prescribed. Return to the ER or your medical provider if condition worsens. Please read and understand discharge instructions. Thank you for choosing [facility] for your healthcare needs today. Please realize this is an emergency room and that we are providing you with a medical screening exam and this may not be complete and all inclusive of all the testing and or work up that you may need to determine your ailment or severity of your illness. It is very important that you follow up as instructed or that you return to the Emergency Department should you have concerns or if your condition changes or worsens in any way. Coding Level of Care Code ED Charger Operator Helper for Chg Fwd Exam Comprehensive
--- NOTE | 2022-10-28 19:28 | XRR_ITS ---
PROCEDURE INFORMATION: Exam: XR Left Tibia and Fibula Exam date and time: 10/28/2022 6:50 PM Age: 62 years old Clinical indication: Injury or trauma; Blunt trauma; Lower leg; Left; Injury date: 5 days ago; Injury details: Fall, chavez pain TECHNIQUE: Imaging protocol: Radiologic exam of the Left tibia and fibula. Views: 2 views. COMPARISON: No relevant prior studies available. FINDINGS: Bones/joints: Alignment is normal. No acute fracture. Soft tissues: Vascular calcification is present. XR/XR tibia fibula LT 2V [id number] IMPRESSION: No acute findings.
[2022-10-28] MEDS: HYDROcodone-acetaminophen 5-325 mg Tablet 1 TAB PO (20:10)
[2022-10-28] MEDS: neomycin-poly-bacitracin oint 28 gm 1 APPLIC TOPICAL (21:18)
== END 2022-10-28 21:23 | disposition home or self-care (01) ==
PROVIDERS: Emergency Provider Physician Assistant
DX: S80.812A Abrasion, left lower leg, initial encounter (principal); R60.0 Localized edema; S90.812A Abrasion, left foot, initial encounter; S81.802A Unspecified open wound, left lower leg, initial encounter; J44.9 Chronic obstructive pulmonary disease, unspecified; I10 Essential (primary) hypertension; W18.30XA Fall on same level, unspecified, initial encounter
CPT/HCPCS: 73590; 73620; 99283

== ENCOUNTER 2022-11-17 16:32 | Inpatient (IN) | payer OTHER, SELFPAY ==
[2022-11-17] VITALS (14 sets, daily range): BP systolic 88–131; BP diastolic 54–98; PULSE 104–120; RESP 16–24; TEMP 36.1–36.6; O2SAT 86–100; BMI 17.5; BMI 17.7
--- NOTE | 2022-11-17 16:57 | ED_ITS ---
Documented by User: Judd Anna MD 11/28/22 01:01 HPI - SOB/Dyspnea General: Chief Complaint: Shortness of Breath/Dyspnea Stated Complaint: SOB, low ox Time Seen by Provider: 11/17/22 16:57 History of Present Illness: HPI Narrative: Mr. Henry is a 62-year-old gentleman with history of COPD without baseline oxygen requirement, hypertension presenting to the emergency department for respiratory distress. He reports worsening respiratory symptoms for a number of months however became severe earlier today. He reports worse symptoms on exertion. He has a cough which is mildly productive. Additionally he notes worsening left lower extremity redness and swelling as well as pain associated with fall injury for which he was seen on 10/28/2022. Intensity symptoms is moderate to severe. Course has worsened. No other specific changes in health, exacerbating, or alleviating factors identified. Onset (ago): week(s) Timing: progressively worsening Severity: severe Exacerbating factors: exertion Relieving factors: nothing Known history of: COPD Associated symptoms: Reports cough Review of Systems General: Reports: 10 or more systems reviewed and unremarkable except in HPI and below PFSH ED PFSH: Medical History Alcohol dependence Atrial flutter COPD (chronic obstructive pulmonary disease) Essential (primary) hypertension Liver disease Post traumatic stress disorder (PTSD) Surgical History No pertinent past surgical history Family History Mother CAD (coronary artery disease) Other Colon polyp Social History Smoking and tobacco status: never smoked Alcohol intake: current Physical Exam Const: COMMON NORMALS: alert GENERAL APPEARANCE: cooperative, well dev eloped and ill appearing HENMT: COMMON NORMALS: normocephalic and atraumatic HEAD & SCALP: normocephalic and atraumatic THROAT: posterior oropharynx normal Eye: COMMON NORMALS: conjunctivae normal CONJUNCTIVA: Yes conjunctivae normal SCLERA: sclerae normal Neck/C-Spine: COMMON NORMALS: supple GENERAL: Yes trachea midline Resp: EFFORT & INSPECTION: Yes able to speak in complete sentences and Yes tachypneic AUSCULTATION: wheezes and diminished lung sounds OTHER: Patient hypoxemic on room air requiring supplemental oxygen for slow improvement from low 80s SPO2 with good pleth Cardio: COMMON NORMALS: regular rhythm RATE: tachycardic RHYTHM: regular rhythm GI: COMMON NORMALS: Soft to palpation PALPATION: Yes Soft to palpation and No Tenderness to palpation present (GI) Extremity: NARRATIVE EXTREMITY EXAM: Large anterior left chavez wound in addition to smaller ulcerated wound on the foot. There is surrounding erythema and tenderness to palpation. CMS otherwise intact. GENERAL: Yes normal exam except as noted and No edema Neuro: COMMON NORMALS: moves all extremities SENSORIUM/ORIENTATION: Yes alert and No Orientation impaired Psych: COMMON NORMALS: mental status grossly normal and Normal thought process present THOUGHT PROCESS: Normal thought process present Course Vital Signs: Vital signs: Vital Signs Temperature 98 F 11/25/22 13:45 Pulse Rate 100 11/25/22 17:29 Respiratory Rate 10 L 11/25/22 15:45 Blood Pressure 139/74 11/25/22 17:29 Pulse Oximetry 99 11/25/22 15:45 Oxygen Delivery Me thod 11/25/22 15:45 Oxygen Flow Rate 2 11/18/22 20:59 Fraction of Inspir ed Oxygen 24 11/25/22 15:45 MDM - SOB/Dyspnea Medical Records I reviewed the patient's medical records. Lab Data I reviewed the patient's lab results. 11/17/22 17:05 11/17/22 17:05 Labs/Radiology: Radiology Impressions Chest/Abdomen/Pelvis CT 11/17/22 18:59 IMPRESSION: 1. No pulmonary embolus. The 2. Centrilobular emphysema. Mild diffuse peribronchial thickening. No consolidation. IMPRESSION: 1. Distended urinary bladder. Urinary retention should be considered in the adequate clinical setting. Otherwise no acute intra-abdominal or intrapelvic pathology. 2. Cirrhotic liver. Foot CT 11/17/22 21:59 IMPRESSION: 1. No evidence of fracture, focal bone destruction, or soft tissue gas to suggest necrotizing fasciitis. 2. Mid to distal foot subcutaneous edema/cellulitis. If there is concern for early osteomyelitis, an MRI would be more sensitive. 3. Chronic findings above with vascular calcifications and DJD. Lower Extremity CT 11/17/22 21:59 IMPRESSION: 1. No evidence of fracture, focal bone destruction, or soft tissue gas to suggest necrotizing fasciitis. 2. Diffuse lower leg subcutaneous edema/cellulitis with a few chavez skin ulcerations. No definite or sizable abscess on this unenhanced exam. If there is concern for early osteomyelitis, an MRI would be more sensitive. 3. Chronic findings above with vascular calcifications and DJD. Chest X-Ray 11/24/22 08:53 IMPRESSION: 1. Right-sided PICC line looped in the lower one third of the SVC. The tip of the line is directed back cephalad. 2. ET tube and NG tube in satisfactory location. 3. No acute cardiopulmonary process noted. Head CT 11/24/22 22:00 IMPRESSION: No acute intracranial abnormality. Laboratory Results WBC 30.5 10^3/uL (4.0-10.0) H* 11/17/22 17:05 RBC 4.00 10^6/uL (4.1-5.3) L 11/17/22 17:05 Hgb 13.9 g/dL (11.7-16.6) 11/17/22 17:05 Hct 42.5 % (42.0-52.0) 11/17/22 17:05 MCV 106.3 fl (80-94) H 11/17/22 17:05 MCH 34.8 pg (28.0-34.0) H 11/17/22 17:05 MCHC 32.7 g/dL (30.0-36.0) 11/17/22 17:05 RDW 12.3 % (12.1-15.1) 11/17/22 17:05 Plt Count 98 10^3/cmm (130-400) L 11/17/22 22:16 MPV 11.3 fL (7.4-10.4) H 11/17/22 17:05 Lymph % (Auto) Not Reportable 11/17/22 17:05 [place] % (Auto) Not Reportable 11/17/22 17:05 Lymph # (Auto) Not Reportable 11/17/22 17:05 [place] # (Auto) Not Reportable 11/17/22 17:05 Total Counted 100 (0-100) 11/17/22 17:05 Atypical Lymphs % 3.0 % (0-5) 11/17/22 17:05 Absolute Neutrophils 27.8 10^3/cmm (1.4-6.5) H 11/17/22 17:05 Segmented Neutrophils 67 % 11/17/22 17:05 Abs Segm Neuts (Man) 20.4 10/cmm (1.6-7.1) H 11/17/22 17:05 Band Neutrophils 24.0 % 11/17/22 17:05 Abs Band Neuts (Man) 7.3 10^3/cmm (0.0-1.2) H 11/17/22 17:05 Absolute Lymphocytes 2.1 10^3/cmm (1.2-3.4) 11/17/22 17:05 Lymphocytes (Manual) 4 % 11/17/22 17:05 Monocytes (Manual) 2.0 % 11/17/22 17:05 Absolute Monocytes 0.6 10^3/cmm (0.1-0.6) 11/17/22 17:05 Eosinophils (Manual) 0 % 11/17/22 17:05 Absolute Eosinophils 0.0 10^3/cmm (0.0-0.7) 11/17/22 17:05 Basophils (Manual) 0.0 % 11/17/22 17:05 Absolute Basophils 0.0 10^3/cmm (0.0-0.2) 11/17/22 17:05 Platelet Estimate Normal (Normal) 11/17/22 17:05 Giant Platelets 1+ H 11/17/22 17:05 Dimorphic RBCs 4+ H 11/17/22 17:05 Polychromasia 3+ H 11/17/22 17:05 Hypochromasia 1+ H 11/17/22 17:05 Poikilocytosis 4+ H 11/17/22 17:05 Anisocytosis 4+ H 11/17/22 17:05 Microcytosis 4+ H 11/17/22 17:05 Macrocytosis 4+ H 11/17/22 17:05 Spherocytes 4+ 11/17/22 17:05 Tear Drop Cells 3+ 11/17/22 17:05 [place] Cells 4+ H 11/17/22 17:05 Acanthocytes (Spur) 1+ H 11/17/22 17:05 Schistocytes 3+ H 11/17/22 17:05 ESR 13 mm/hr (0-10) H 11/17/22 22:16 PT 12.50 SECONDS (12.1-14.9) 11/17/22 22:16 INR 0.90 (0.8-1.2) 11/17/22 22:16 APTT 28.4 SECONDS (23.9-36.7) 11/17/22 22:16 Fibrinogen 539 mg/dL (174-498) H 11/17/22 22:16 Fibrin Degrad Products Pos, 10-40 ug/mL (NEG) H 11/17/22 22:16 D-Dimer 3.46 ug/mIFEU (0-0.59) H 11/17/22 22:16 Specimen Type Arterial 11/17/22 16:58 Sample Site Radial, right 11/17/22 16:58 ABG pH 7.28 (7.35-7.45) L 11/17/22 16:58 ABG pCO2 55.7 mmHg (35-45) H 11/17/22 16:58 ABG pO2 94.1 mmHg (80.0-100.0) 11/17/22 16:58 ABG HCO3 26.0 mmol/L (22-26) 11/17/22 16:58 ABG Base Excess -1.7 mmol/L (-2.0-2.0) 11/17/22 16:58 Catalino Test Pos 11/17/22 16:58 Hematocrit 39.9 % (42-52) L 11/17/22 16:58 Hgb O2 Saturation 94.0 % (95-100) L 11/17/22 16:58 Carboxyhemoglobin 2.4 %THgb (0.4-20.1) 11/17/22 16:58 Methemoglobin 0.7 % (0.4-1.5) 11/17/22 16:58 Total Hemoglobin 13.0 g/dL (14-18) L 11/17/22 16:58 O2 Delivery Device Nc 11/17/22 16:58 O2 Liters/Min 3.0 % 11/17/22 16:58 Beekeeper ID Maya 11/17/22 16:58 Sodium 143 mmol/L (136-145) 11/17/22 17:05 Potassium 4.2 mmol/L (3.5-5.1) 11/17/22 17:05 Chloride 102 mmol/L (98-107) 11/17/22 17:05 Carbon Dioxide 26 mmol/L (22-29) 11/17/22 17:05 Anion Gap 19.2 (5-19) H 11/17/22 17:05 BUN 36 mg/dL (8-23) H 11/17/22 17:05 Creatinine 1.7 mg/dL (0.7-1.2) H 11/17/22 17:05 GFR Calculation 41.2 mL/min (90-130) L 11/17/22 17:05 Glucose 122 mg/dL (65-115) H 11/17/22 17:05 Estimat Average Glucose 108 11/17/22 17:05 Hemoglobin A1c 5.4 % (4.0-6.0) 11/17/22 17:05 Calculated Osmolality 306 mOsm/kg (285-295) H 11/17/22 17:05 Lactic Acid 1.3 mmol/L (0.5-2.2) 11/17/22 17:05 Calcium 10.1 mg/dL (8.5-10.5) 11/17/22 17:05 Phosphorus 4.6 mg/dL (2.5-4.5) H 11/17/22 22:16 Magnesium 2.2 mg/dL (1.7-2.3) 11/17/22 22:16 Total Bilirubin 1.1 mg/dL (0.15-1.2) 11/17/22 17:05 AST 39 U/L (0-40) 11/17/22 17:05 ALT 18 U/L (0-41) 11/17/22 17:05 Alkaline Phosphatase 216 U/L (40-130) H 11/17/22 17:05 Creatine Kinase 69 U/L (39-308) 11/17/22 22:16 Troponin T Baseline 19 ng/L (0-15) H 11/17/22 22:16 C-Reactive Protein 101.3 mg/L (0.0-4.9) H 11/17/22 17:05 NT-Pro-B Natriuret Pep 2677 pg/mL (0-125) H 11/17/22 17:05 Total Protein 7.5 g/dL (6.6-8.7) 11/17/22 17:05 Albumin 3.5 g/dL (3.5-5.2) 11/17/22 17:05 Globulin 4.0 g/dL (1.3-4.6) 11/17/22 17:05 Lipase 9 U/L (13-60) L 11/17/22 22:16 Vitamin B12 896 pg/mL (232-1245) 11/17/22 22:16 Folate 8.6 ng/mL (4.5-32.2) 11/17/22 17:05 Procalcitonin 1.59 ng/mL (0-0.5) H 11/17/22 17:05 TSH 0.30 uIU/mL (0.27-4.20) 11/17/22 22:16 Random Cortisol 29.34 ug/dL (2.47-19.5) H 11/17/22 17:05 Random Cortisol Cancelled 11/17/22 17:05 Urine Color Yellow (Yellow) 11/17/22 22:16 Urine Appearance Clear (CLEAR) 11/17/22 22:16 Urine pH 5 (5-7) 11/17/22 22:16 Ur Specific [place] 1.015 (1.005-1.030) 11/17/22 22:16 Urine Protein Neg (Negative) 11/17/22 22:16 Urine Glucose (UA) Norm (Normal) 11/17/22 22:16 Urine Ketones Negative (Negative) 11/17/22 22:16 Urine Blood Neg (Negative) 11/17/22 22:16 Urine Nitrate Negative (Negative) 11/17/22 22:16 Urine Bilirubin 2+ (Negative) H 11/17/22 22:16 Urine Urobilinogen Norm mg/dL (Negative) 11/17/22 22:16 Ur Leukocyte Esterase Negative (Negative) 11/17/22 22:16 Urine Opiates Screen Negative ng/mL (Negative) 11/17/22 22:16 Ur Barbiturates Screen Negative ng/mL (Negative) 11/17/22 22:16 Ur Phencyclidine Scrn Negative ng/mL (Negative) 11/17/22 22:16 Ur Amphetamines Screen Negative ng/mL (Negative) 11/17/22 22:16 U Benzodiazepines Scrn Negative ng/mL (Negative) 11/17/22 22:16 Urine Cocaine Screen Negative ng/mL (Negative) 11/17/22 22:16 U Marijuana (THC) Screen Negative ng/mL (Negative) 11/17/22 22:16 Ethyl Alcohol < 10 mg/dL (0-10) 11/17/22 22:16 Hepatitis A IgM Ab Non-reactive (Nonreactive) 11/17/22 17:05 Hep Bs Antigen Non-reactive (Nonreactive) 11/17/22 17:05 Hep B Core IgM Ab Non-reactive (Nonreactive) 11/17/22 17:05 Hepatitis C Antibody Non-reactive (Nonreactive) 11/17/22 17:05 HIV 1&2 Ab & HIV 1 Ag Non-reactive (Non-Reactiv) 11/17/22 17:05 HIV 1&2 Antibody Non-reactive (Non-Reactiv) 11/17/22 17:05 Influenza Type A Ag negative (Negative) 11/17/22 17:17 Influenza Type B Ag negative (Negative) 11/17/22 17:17 SARS-CoV-2 Ag (Rapid) Negative (Negative) 11/17/22 17:17 Discharge Plan Discharge Patient Disposition: Admitted As Inpatient Admit Provider: Adolfo Alexis Clinical Impression: COPD with acute exacerbation, Acute respiratory failure with hypoxemia, Cellulitis Condition: Stable Coding Level of Care Code ED Integration Software Engineer for Chg Fwd Exam Comprehensive Documented by User: Ijeoma Hsu MD 11/17/22 22:13 HPI - SOB/Dyspnea General: Chief Complaint: Shortness of Breath/Dyspnea Stated Complaint: SOB, low ox Time Seen by Provider: 11/17/22 16:57 PFSH ED PFSH: Medical History Alcohol dependence Atrial flutter COPD (chronic obstructive pulmonary disease) Essential (primary) hypertension Liver disease Post traumatic stress disorder (PTSD) Surgical History No pertinent past surgical history Family History Mother CAD (coronary artery disease) Other Colon polyp Social History Smoking and tobacco status: never smoked Alcohol intake: current Course Vital Signs: Vital signs: Vital Signs Temperature 98 F 11/25/22 13:45 Pulse Rate 100 11/25/22 17:29 Respiratory Rate 10 L 11/25/22 15:45 Blood Pressure 139/74 11/25/22 17:29 Pulse Oximetry 99 11/25/22 15:45 Oxygen Delivery Me thod 11/25/22 15:45 Oxygen Flow Rate 2 11/18/22 20:59 Fraction of Inspir ed Oxygen 24 11/25/22 15:45 MDM - SOB/Dyspnea Medical Decision Making Patient presents here with acute respiratory failure likely COPD exacerbation he is requiring BiPAP. He also has a cellulitis that could explain his elevated white count and lactate here is normal blood pressures been normal patient started on IV antibiotics spoke to the hospitalist who will admit. Lab Data 11/17/22 17:05 11/17/22 17:05 Labs/Radiology: Radiology Impressions Chest/Abdomen/Pelvis CT 11/17/22 18:59 IMPRESSION: 1. No pulmonary embolus. The 2. Centrilobular emphysema. Mild diffuse peribronchial thickening. No consolidation. IMPRESSION: 1. Distended urinary bladder. Urinary retention should be considered in the adequate clinical setting. Otherwise no acute intra-abdominal or intrapelvic pathology. 2. Cirrhotic liver. Foot CT 11/17/22 21:59 IMPRESSION: 1. No evidence of fracture, focal bone destruction, or soft tissue gas to suggest necrotizing fasciitis. 2. Mid to distal foot subcutaneous edema/cellulitis. If there is concern for early osteomyelitis, an MRI would be more sensitive. 3. Chronic findings above with vascular calcifications and DJD. Lower Extremity CT 11/17/22 21:59 IMPRESSION: 1. No evidence of fracture, focal bone destruction, or soft tissue gas to suggest necrotizing fasciitis. 2. Diffuse lower leg subcutaneous edema/cellulitis with a few chavez skin ulcerations. No definite or sizable abscess on this unenhanced exam. If there is concern for early osteomyelitis, an MRI would be more sensitive. 3. Chronic findings above with vascular calcifications and DJD. Chest X-Ray 11/24/22 08:53 IMPRESSION: 1. Right-sided PICC line looped in the lower one third of the SVC. The tip of the line is directed back cephalad. 2. ET tube and NG tube in satisfactory location. 3. No acute cardiopulmonary process noted. Head CT 11/24/22 22:00 IMPRESSION: No acute intracranial abnormality. Laboratory Results WBC 30.5 10^3/uL (4.0-10.0) H* 11/17/22 17:05 RBC 4.00 10^6/uL (4.1-5.3) L 11/17/22 17:05 Hgb 13.9 g/dL (11.7-16.6) 11/17/22 17:05 Hct 42.5 % (42.0-52.0) 11/17/22 17:05 MCV 106.3 fl (80-94) H 11/17/22 17:05 MCH 34.8 pg (28.0-34.0) H 11/17/22 17:05 MCHC 32.7 g/dL (30.0-36.0) 11/17/22 17:05 RDW 12.3 % (12.1-15.1) 11/17/22 17:05 Plt Count 98 10^3/cmm (130-400) L 11/17/22 22:16 MPV 11.3 fL (7.4-10.4) H 11/17/22 17:05 Lymph % (Auto) Not Reportable 11/17/22 17:05 [place] % (Auto) Not Reportable 11/17/22 17:05 Lymph # (Auto) Not Reportable 11/17/22 17:05 [place] # (Auto) Not Reportable 11/17/22 17:05 Total Counted 100 (0-100) 11/17/22 17:05 Atypical Lymphs % 3.0 % (0-5) 11/17/22 17:05 Absolute Neutrophils 27.8 10^3/cmm (1.4-6.5) H 11/17/22 17:05 Segmented Neutrophils 67 % 11/17/22 17:05 Abs Segm Neuts (Man) 20.4 10/cmm (1.6-7.1) H 11/17/22 17:05 Band Neutrophils 24.0 % 11/17/22 17:05 Abs Band Neuts (Man) 7.3 10^3/cmm (0.0-1.2) H 11/17/22 17:05 Absolute Lymphocytes 2.1 10^3/cmm (1.2-3.4) 11/17/22 17:05 Lymphocytes (Manual) 4 % 11/17/22 17:05 Monocytes (Manual) 2.0 % 11/17/22 17:05 Absolute Monocytes 0.6 10^3/cmm (0.1-0.6) 11/17/22 17:05 Eosinophils (Manual) 0 % 11/17/22 17:05 Absolute Eosinophils 0.0 10^3/cmm (0.0-0.7) 11/17/22 17:05 Basophils (Manual) 0.0 % 11/17/22 17:05 Absolute Basophils 0.0 10^3/cmm (0.0-0.2) 11/17/22 17:05 Platelet Estimate Normal (Normal) 11/17/22 17:05 Giant Platelets 1+ H 11/17/22 17:05 Dimorphic RBCs 4+ H 11/17/22 17:05 Polychromasia 3+ H 11/17/22 17:05 Hypochromasia 1+ H 11/17/22 17:05 Poikilocytosis 4+ H 11/17/22 17:05 Anisocytosis 4+ H 11/17/22 17:05 Microcytosis 4+ H 11/17/22 17:05 Macrocytosis 4+ H 11/17/22 17:05 Spherocytes 4+ 11/17/22 17:05 Tear Drop Cells 3+ 11/17/22 17:05 [place] Cells 4+ H 11/17/22 17:05 Acanthocytes (Spur) 1+ H 11/17/22 17:05 Schistocytes 3+ H 11/17/22 17:05 ESR 13 mm/hr (0-10) H 11/17/22 22:16 PT 12.50 SECONDS (12.1-14.9) 11/17/22 22:16 INR 0.90 (0.8-1.2) 11/17/22 22:16 APTT 28.4 SECONDS (23.9-36.7) 11/17/22 22:16 Fibrinogen 539 mg/dL (174-498) H 11/17/22 22:16 Fibrin Degrad Products Pos, 10-40 ug/mL (NEG) H 11/17/22 22:16 D-Dimer 3.46 ug/mIFEU (0-0.59) H 11/17/22 22:16 Specimen Type Arterial 11/17/22 16:58 Sample Site Radial, right 11/17/22 16:58 ABG pH 7.28 (7.35-7.45) L 11/17/22 16:58 ABG pCO2 55.7 mmHg (35-45) H 11/17/22 16:58 ABG pO2 94.1 mmHg (80.0-100.0) 11/17/22 16:58 ABG HCO3 26.0 mmol/L (22-26) 11/17/22 16:58 ABG Base Excess -1.7 mmol/L (-2.0-2.0) 11/17/22 16:58 Catalino Test Pos 11/17/22 16:58 Hematocrit 39.9 % (42-52) L 11/17/22 16:58 Hgb O2 Saturation 94.0 % (95-100) L 11/17/22 16:58 Carboxyhemoglobin 2.4 %THgb (0.4-20.1) 11/17/22 16:58 Methemoglobin 0.7 % (0.4-1.5) 11/17/22 16:58 Total Hemoglobin 13.0 g/dL (14-18) L 11/17/22 16:58 O2 Delivery Device Nc 11/17/22 16:58 O2 Liters/Min 3.0 % 11/17/22 16:58 Beekeeper ID Maya 11/17/22 16:58 Sodium 143 mmol/L (136-145) 11/17/22 17:05 Potassium 4.2 mmol/L (3.5-5.1) 11/17/22 17:05 Chloride 102 mmol/L (98-107) 11/17/22 17:05 Carbon Dioxide 26 mmol/L (22-29) 11/17/22 17:05 Anion Gap 19.2 (5-19) H 11/17/22 17:05 BUN 36 mg/dL (8-23) H 11/17/22 17:05 Creatinine 1.7 mg/dL (0.7-1.2) H 11/17/22 17:05 GFR Calculation 41.2 mL/min (90-130) L 11/17/22 17:05 Glucose 122 mg/dL (65-115) H 11/17/22 17:05 Estimat Average Glucose 108 11/17/22 17:05 Hemoglobin A1c 5.4 % (4.0-6.0) 11/17/22 17:05 Calculated Osmolality 306 mOsm/kg (285-295) H 11/17/22 17:05 Lactic Acid 1.3 mmol/L (0.5-2.2) 11/17/22 17:05 Calcium 10.1 mg/dL (8.5-10.5) 11/17/22 17:05 Phosphorus 4.6 mg/dL (2.5-4.5) H 11/17/22 22:16 Magnesium 2.2 mg/dL (1.7-2.3) 11/17/22 22:16 Total Bilirubin 1.1 mg/dL (0.15-1.2) 11/17/22 17:05 AST 39 U/L (0-40) 11/17/22 17:05 ALT 18 U/L (0-41) 11/17/22 17:05 Alkaline Phosphatase 216 U/L (40-130) H 11/17/22 17:05 Creatine Kinase 69 U/L (39-308) 11/17/22 22:16 Troponin T Baseline 19 ng/L (0-15) H 11/17/22 22:16 C-Reactive Protein 101.3 mg/L (0.0-4.9) H 11/17/22 17:05 NT-Pro-B Natriuret Pep 2677 pg/mL (0-125) H 11/17/22 17:05 Total Protein 7.5 g/dL (6.6-8.7) 11/17/22 17:05 Albumin 3.5 g/dL (3.5-5.2) 11/17/22 17:05 Globulin 4.0 g/dL (1.3-4.6) 11/17/22 17:05 Lipase 9 U/L (13-60) L 11/17/22 22:16 Vitamin B12 896 pg/mL (232-1245) 11/17/22 22:16 Folate 8.6 ng/mL (4.5-32.2) 11/17/22 17:05 Procalcitonin 1.59 ng/mL (0-0.5) H 11/17/22 17:05 TSH 0.30 uIU/mL (0.27-4.20) 11/17/22 22:16 Random Cortisol 29.34 ug/dL (2.47-19.5) H 11/17/22 17:05 Random Cortisol Cancelled 11/17/22 17:05 Urine Color Yellow (Yellow) 11/17/22 22:16 Urine Appearance Clear (CLEAR) 11/17/22 22:16 Urine pH 5 (5-7) 11/17/22 22:16 Ur Specific [place] 1.015 (1.005-1.030) 11/17/22 22:16 Urine Protein Neg (Negative) 11/17/22 22:16 Urine Glucose (UA) Norm (Normal) 11/17/22 22:16 Urine Ketones Negative (Negative) 11/17/22 22:16 Urine Blood Neg (Negative) 11/17/22 22:16 Urine Nitrate Negative (Negative) 11/17/22 22:16 Urine Bilirubin 2+ (Negative) H 11/17/22 22:16 Urine Urobilinogen Norm mg/dL (Negative) 11/17/22 22:16 Ur Leukocyte Esterase Negative (Negative) 11/17/22 22:16 Urine Opiates Screen Negative ng/mL (Negative) 11/17/22 22:16 Ur Barbiturates Screen Negative ng/mL (Negative) 11/17/22 22:16 Ur Phencyclidine Scrn Negative ng/mL (Negative) 11/17/22 22:16 Ur Amphetamines Screen Negative ng/mL (Negative) 11/17/22 22:16 U Benzodiazepines Scrn Negative ng/mL (Negative) 11/17/22 22:16 Urine Cocaine Screen Negative ng/mL (Negative) 11/17/22 22:16 U Marijuana (THC) Screen Negative ng/mL (Negative) 11/17/22 22:16 Ethyl Alcohol < 10 mg/dL (0-10) 11/17/22 22:16 Hepatitis A IgM Ab Non-reactive (Nonreactive) 11/17/22 17:05 Hep Bs Antigen Non-reactive (Nonreactive) 11/17/22 17:05 Hep B Core IgM Ab Non-reactive (Nonreactive) 11/17/22 17:05 Hepatitis C Antibody Non-reactive (Nonreactive) 11/17/22 17:05 HIV 1&2 Ab & HIV 1 Ag Non-reactive (Non-Reactiv) 11/17/22 17:05 HIV 1&2 Antibody Non-reactive (Non-Reactiv) 11/17/22 17:05 Influenza Type A Ag negative (Negative) 11/17/22 17:17 Influenza Type B Ag negative (Negative) 11/17/22 17:17 SARS-CoV-2 Ag (Rapid) Negative (Negative) 11/17/22 17:17 Discharge Plan Discharge Patient Disposition: Admitted As Inpatient Admit Provider: Adolfo Alexis Clinical Impression: COPD with acute exacerbation, Acute respiratory failure with hypoxemia, Cellulitis Condition: Stable Coding Level of Care Code ED Integration Software Engineer for Jerald Fwd Exam Comprehensive
--- NOTE | 2022-11-17 16:58 | XRR_ITS ---
PROCEDURE INFORMATION: Exam: XR Chest Exam date and time: 11/17/2022 5:45 PM Age: 62 years old Clinical indication: Shortness of breath; Additional info: SOB TECHNIQUE: Imaging protocol: Radiologic exam of the chest. Views: 1 view. COMPARISON: CR XR chest 1V portable [id number] 09/22/2022 10:27 PM FINDINGS: Lungs: Unremarkable. No consolidation. Pleural spaces: Unremarkable. No pleural effusion. No pneumothorax. Heart/Mediastinum: Stable cardiomediastinal silhouette. Bones/joints: Degenerative changes of the spine seen. XR/XR chest 1V portable [id number] IMPRESSION: No evidence of active cardiopulmonary disease.
--- NOTE | 2022-11-17 17:04 | ECG_ITS ---
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 Measurements Intervals [place] Rate: 114 P: 89 SC: 140 QRS: 83 QRSD: 79 T: 89 QT: 326 QTc: 451 Interpretive Statements SINUS TACHYCARDIA ABNORMAL RHYTHM ECG Compared to ECG 09/22/2022 21:51:28 Junctional tachycardia no longer present T-wave abnormality no longer present Poor R-wave progression no longer present Electronically Signed On 11-18-2022 10:03:01 J2EE ANDROID DEVELOPER by Ronel Barillas M.D. [id number]
[2022-11-17 17:10] LABS: ABG PCO2 55.7 mmHg (35-45); ABG PH Result 7.28 (7.35-7.45); Arterial Blood Gas Hematocrit 39.9 % (42-52); Base Excess ABG -1.7 mmol/L (-2.0-2.0); Blood Gas Allen Test Pos; Blood Gas Operator Identificat WALCI; Blood Gas Sample Site Radial, right; Blood Gas Sample Type Arterial; Carboxyhemoglobin 2.4 %THgb (0.4-20.1); Methemoglobin 0.7 % (0.4-1.5); Oxygen Device NC; PO2 ABG 94.1 mmHg (80.0-100.0)
[2022-11-17 17:22] LABS: Hematocrit 42.5 % (42.0-52.0); Hemoglobin 13.9 g/dL (11.7-16.6); Mean Corpuscular HGB Conc 32.7 g/dL (30.0-36.0); Mean Corpuscular Hemoglobin 34.8 pg (28.0-34.0); Mean Corpuscular Volume 106.3 fl (80-94); Mean Platelet Volume 11.3 fL (7.4-10.4); Platelet Count 106 10^3/cmm (130-400); Red Cell Distribution Width 12.3 % (12.1-15.1)
--- NOTE | 2022-11-17 17:28 | PC.NURSE ---
RESPIRATORY IN ROOM PLACING PT ON BIPAP
[2022-11-17] MEDS: ipratropium-albuterol 3 mL Neb INHALATION (17:30)
[2022-11-17] MEDS: cefepime 2,000 MG in sodium chloride 0.9% (plus) 50 ML 100 MG IV (17:38)
[2022-11-17 17:42] LABS: Lactic Sepsis W/Reflex 1.3 mmol/L (0.5-2.2)
[2022-11-17 17:50] LABS: Influenza A by IFA negative (Negative); Influenza B by IFA negative (Negative)
[2022-11-17 17:52] LABS: Add RBC Morph Yes; NT Pro B Type Natriuretic Pept 2677 pg/mL (0-125); Procalcitonin 1.59 ng/mL (0-0.5); Slide Review Slide Review Perform; Total Cells Counted 100 (0-100); White Blood Count 30.5 10^3/uL (4.0-10.0)
[2022-11-17 17:53] LABS: Absolute Neutrophil 27.8 10^3/cmm (1.4-6.5); Absolute Segmented Neutrophil 20.4 10/cmm (1.6-7.1); Band Neutrophils Absolute 7.3 10^3/cmm (0.0-1.2); Dimorphic RBC 4+; Eosinophils 0 %; Giant Platelets 1+; Hypochromasia 1+; Lymphocytes 4 %; Lymphocytes Absolute 2.1 10^3/cmm (1.2-3.4); Monocytes Absolute 0.6 10^3/cmm (0.1-0.6); Platelet Estimate Normal (Normal); Polychromasia 3+; RBC Morph Comp No; Segmented Neutrophils 67 %
[2022-11-17 17:54] LABS: Acanthocytes 1+; Anisocytosis 4+; Burr Cells 4+; Macrocytosis 4+; Microcytosis 4+; Poikilocytosis 4+; Schistocytes 3+; Spherocytes 4+; Tear Drop Cells 3+
[2022-11-17 17:55] LABS: SARS Covid-2 Antigen Negative (Negative)
--- NOTE | 2022-11-17 17:56 | PC.NURSE ---
PT PLACED ON CONTINUOUS NIBP, SPO2, AND CM
[2022-11-17 18:03] LABS: Alanine Aminotransferase 18 U/L (0-41); Albumin Level 3.5 g/dL (3.5-5.2); Alkaline Phosphatase 216 U/L (40-130); Anion Gap 19.2 (5-19); Aspartate Amino Transferase 39 U/L (0-40); Blood Urea Nitrogen 36 mg/dL (8-23); C Reactive Protein 101.3 mg/L (0.0-4.9); Calcium 10.1 mg/dL (8.5-10.5); Carbon Dioxide 26 mmol/L (22-29); Chloride 102 mmol/L (98-107); Glomerular Filtration Rate 41.2 mL/min (90-130); Glucose 122 mg/dL (65-115); Osmolality Calculated 306 mOsm/kg (285-295); Potassium 4.2 mmol/L (3.5-5.1); Sodium 143 mmol/L (136-145); Total Bilirubin 1.1 mg/dL (0.15-1.2); Total Protein 7.5 g/dL (6.6-8.7)
[2022-11-17] MEDS: vancomycin 1,500 MG/300 ML PIGGYBACK 200 MG IV (18:10)
--- NOTE | 2022-11-17 18:59 | CTR_ITS ---
PROCEDURE INFORMATION: Exam: CTA Chest With Contrast Exam date and time: 11/17/2022 7:56 PM Age: 62 years old Clinical indication: Other: Wbc30k, anshu; Shortness of breath; Prior surgery; Surgery type: Lumbar fusion; Patient HX: Resp distress. Tachycardic. Wbc of 30k. Anshu. ; Additional info: Abd pain TECHNIQUE: Imaging protocol: Computed tomographic angiography of the chest with contrast. 3D rendering (Not supervised by radiologist): MIP and/or 3D reconstructed images were created by the technologist. Radiation optimization: All CT scans at this facility use at least one of these dose optimization techniques: automated exposure control; mA and/or kV adjustment per patient size (includes targeted exams where dose is matched to clinical indication); or iterative reconstruction. Contrast material: OMNI 350; Contrast volume: 100 ml; Contrast route: INTRAVENOUS (IV); COMPARISON: CR (CHEST, ) 11/17/2022 5:45 PM RADIATION DOSE METRICS: Total DLP (mGy-cm): 673.59 FINDINGS: Pulmonary arteries: Normal. No pulmonary emboli. Aorta: Mild diffuse atherosclerotic disease is present. No aortic aneurysm. No aortic dissection. Lungs: Centrilobular emphysema is present. Mild diffuse peribronchial thickening is present. Pleural spaces: Unremarkable. No pneumothorax. No pleural effusion. Heart: Normal heart size. Coronary atherosclerotic calcifications seen. No pericardial effusion. Lymph nodes: Unremarkable. No enlarged lymph nodes. Bones/joints: Degenerative changes of the spine seen. Old healed fracture deformities noted in the sternal body and bilateral rib cage. Soft tissues: Unremarkable. COMMENTS: In the absence of a history or active diagnosis of lung cancer, it is recommended that this patient with emphysema be evaluated for enrollment in a low dose CT lung cancer screening program. PROCEDURE INFORMATION: Exam: CT Abdomen And Pelvis With Contrast Exam date and time: 11/17/2022 7:56 PM Age: 62 years old Clinical indication: Other: Wbc30k, anshu; Shortness of breath; Prior surgery; Surgery type: Lumbar fusion; Patient HX: Resp distress. Tachycardic. Wbc of 30k. Anshu. ; Additional info: Abd pain TECHNIQUE: Imaging protocol: Computed tomography of the abdomen and pelvis with contrast. Radiation optimization: All CT scans at this facility use at least one of these dose optimization techniques: automated exposure control; mA and/or kV adjustment per patient size (includes targeted exams where dose is matched to clinical indication); or iterative reconstruction. Contrast material: OMNI 350; Contrast volume: 100 ml; Contrast route: INTRAVENOUS (IV); COMPARISON: CT abdomen pelvis w con* [id number] 07/14/2020 3:29 PM RADIATION DOSE METRICS: Total DLP (mGy-cm): 673.59 FINDINGS: Liver: The liver demonstrates volume redistribution and nodular contour, consistent with cirrhosis. No discrete mass lesion seen. Gallbladder and bile ducts: Small gallstones and sludge noted. Pancreas: Normal. No ductal dilation. Spleen: Normal. No splenomegaly. Adrenal glands: Normal. No mass. Kidneys and ureters: Normal. No hydronephrosis. Stomach and bowel: Unremarkable. No obstruction. No mucosal thickening. Appendix: No evidence of appendicitis. Intraperitoneal space: Unremarkable. No free air. No significant fluid collection. Vasculature: Severe diffuse atherosclerotic disease is present. Lymph nodes: Unremarkable. No enlarged lymph nodes. Urinary bladder: The urinary bladder is distended. Reproductive: Unremarkable as visualized. Bones/joints: Degenerative changes of the spine seen. Subchondral fractures noted in the left hip, suggestive of AVN. There is mild degenerative changes of the hip joints. Degenerative changes of the spine seen. The patient is status post L4-L5 posterior fusion. No clear evidence of hardware related complication. Soft tissues: Unremarkable. CT/CT angio chest w abd pel w con IMPRESSION: 1. No pulmonary embolus. The 2. Centrilobular emphysema. Mild diffuse peribronchial thickening. No consolidation. IMPRESSION: 1. Distended urinary bladder. Urinary retention should be considered in the adequate clinical setting. Otherwise no acute intra-abdominal or intrapelvic pathology. 2. Cirrhotic liver.
[2022-11-17] MEDS: iohexol 350 mg/mL 500 mL Btl (per mL) IV (20:09)
--- NOTE | 2022-11-17 21:55 | USCV_ITS ---
Ramesh Henry Age: 62 Gender: M : 1960 Exam Date: 11/17/2022 22:27 Ordering Phys: Adolfo Alexis MD Technologist: KEVIN Exam Location: [facility] Indication: scraping injury with fall 2 months ago, now scabbed over. No significant edema. Mild erythema. No history of DVT HISTORY: scraping injury with fall 2 months ago, now scabbed over. No significant edema. Mild erythema. No history of DVT PROCEDURES: Venous duplex imaging was performed in only the left lower extremity. The following venous structures were evaluated: common femoral vein, profunda vein, proximal portion of the greater saphenous vein, superficial femoral vein, and the popliteal vein. In addition, the posterior tibial veins were evaluated. FINDINGS: Normal 2-D Doppler and augmentation and compressibility throughout the lower extremity venous structures. Additional imaging through the proximal calf veins also reveals no thrombus. Limited evaluation of the greater saphenous vein is patent with no thrombus. CONCLUSIONS No DVT left lower extremity. Dr. Rafaela Miller DO (Electronically Signed) Final Date: 18 November 2022 07:36 S
--- NOTE | 2022-11-17 21:58 | P.HP_ITS ---
Providers/Chief Complaint Primary Care Provider: [facility] Chief Complaint: SOB, low ox History of Present Illness Ramesh Henry is a 62 year old male with a past medical history of alcoholism, liver cirrhosis, atrial flutter on Xarelto, history of COPD who presents [facility] for altered mental status, shortness of breath, left leg swelling erythema. Currently patient is alert to person, not to place, not to time, currently on BiPAP, most of the history was provided by patient's mother at bedside. Patient's mother's tells me that back in September, he had a fall, and sustained a left foot injury since then he has had significant pain, swelling, of his left leg that is substantially worsened over the last few weeks. 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 No known history of drug use. His mother and sister check up on him regularly, no more is after his major fall in September, no known history of cardiac disease, no history of strokes, he does have pets at home but they live outside, his mom tells me that he does not really eat, does not really take care of himself, no history of sacral ulcers, he has been taking care of his ulcer on his left foot, currently scabbed over Review of Systems General: Reports: ROS unobtainable due to medical condition and ROS unobtainable due to mental status Medications/Allergies Home Medications Medication Instructions Recorded Confirmed Last Taken Type albuterol sulfate 90 mcg/actuation 2 puff inhalation QID PRN 07/14/20 07/14/20 Unknown History aerosol inhaler Shortness Of Breath budesonide-formoterol HFA 80 2 puff inhalation BID 07/14/20 07/14/20 Unknown History mcg-4.5 mcg/actuation aerosol inhaler cholecalciferol (vitamin D3) 50 2,000 unit PO DAILY 07/14/20 07/14/20 Unknown History mcg (2,000 unit) tablet (Vitamin D3) etodolac 400 mg tablet 400 mg PO BID PRN unknown 07/14/20 07/14/20 Unknown History gabapentin 100 mg capsule 200 mg PO TID 07/14/20 07/14/20 Unknown History lisinopril 20 mg tablet 10 mg PO DAILY 07/14/20 07/14/20 Unknown History metoprolol tartrate 50 mg tablet 25 mg PO BID 07/14/20 07/14/20 Unknown History pantoprazole 40 mg tablet,delayed 40 mg PO BID 07/14/20 07/14/20 Unknown History release (Protonix) rivaroxaban 20 mg tablet 20 mg PO QPM 07/14/20 07/14/20 Unknown History thiamine HCl (vitamin B1) 100 mg 100 mg PO DAILY 07/14/20 07/14/20 Unknown History tablet Allergies Allergy/AdvReac Type Severity Reaction Status Date / Time No Known Allergies Allergy Verified 01/01/20 10:43 PFSH Acute PFSH: Medical History (Updated 11/17/22 @ 22:23 by Adolfo Alexis MD) Alcohol dependence Atrial flutter COPD (chronic obstructive pulmonary disease) Essential (primary) hypertension Liver disease Post traumatic stress disorder (PTSD) Surgical History (Updated 11/17/22 @ 22:20 by Adolfo Alexis MD) No pertinent past surgical history Family History Mother CAD (coronary artery disease) Other Colon polyp Social History Smoking and tobacco status: never smoked Alcohol intake: current Substance/Drug Use: never Vitals/I&O/Wt Last Vital Signs Temp 97.0 F L 11/17/22 21:30 Pulse 104 H 11/17/22 21:30 Resp 20 H 11/17/22 21:30 BP 108/71 11/17/22 21:30 Pulse Ox 97 11/17/22 21:30 O2 Del Method 11/17/22 21:30 FiO2 30 11/17/22 20:15 11/17/22 11/17/22 11/17/22 06:59 14:59 22:59 Intake Total 50 / 50 Balance 50 / 50 Weight last 48 hrs Weight 53.977 kg Physical Exam Const: COMMON NORMALS: no acute distress EXAM LIMITATIONS: altered mental status ORIENTATION/CONSCIOUSNESS: Yes awake, Yes oriented to person and Yes confused; not oriented to place and not oriented to time Eye: COMMON NORMALS: Equal, round and reactive pupils present Neck/C-Spine: COMMON NORMALS: no lymphadenopathy Chest: COMMONS NORMALS: normal inspection of the chest Resp: COMMON NORMALS: normal respiratory effort, No retractions, No use of accessory muscles and clear to auscultation bilaterally AUSCULTATION: clear to auscultation bilaterally Cardio: COMMON NORMALS: regular rate, regular rhythm, S1 normal heart sound p resent and S2 normal heart sound present RATE: regular rate and tachycardic RHYTHM: regular rhythm HEART SOUNDS: S1 normal heart sound present and S2 normal heart sound present GI: COMMON NORMALS: Normal to inspection, nondistended, normoactive bowel sounds present, Soft to palpation and non-tender : COMMON NORMALS: Yes no CVA tenderness Extremity: NARRATIVE EXTREMITY EXAM: Left lower extremity, linear scab, measuring 1 x 10 cm, Erythema, swelling, warmth, extending from mid chavez down to forefoot Neuro: OTHER: Cannot do neurologic testing due to altered mental status Sepsis: Is patient septic: Yes Focused sepsis exam performed: Yes Focused sepsis exam: Tachycardia, cellulitis, respiratory failure, requiring BiPAP Date exam was performed: 11/17/22 Time exam was performed: 22:23 Data 11/17/22 17:05 11/17/22 17:05 Micro: Microbiology 11/17/22 17:05 Blood Culture - Preliminary Blood SPECIMEN COLLECTED 11/17/22 17:17 Blood Culture - Preliminary Blood SPECIMEN COLLECTED A&P Assessment and plan (1) COPD with acute exacerbation: (2) Acute respiratory failure with hypoxemia: (3) Cellulitis: (4) Sepsis: (5) Protein calorie malnutrition: (6) Muscular deconditioning: (7) Physical deconditioning: (8) Tachycardia: (9) Alcohol abuse with withdrawal: (10) HEMA (acute kidney injury): (11) Goals of care, counseling/discussion: (12) Necrotizing fasciitis: (13) Acute encephalopathy: Plan Acute encephalopathy -Likely multifactorial from sepsis, cellulitis, UA pending possible UTI, alcohol withdrawal, respiratory failure, hypoxia -Neurochecks, aspiration precautions Alcohol withdrawal -B12, folate, alcohol level, urine drug screen -[facility] protocol -Precedex drip for agitation Acute respiratory failure -Likely secondary to COPD exacerbation -However currently no wheezing on exam -Continue Solu-Medrol 40 every 8 hours -DuoNeb, budesonide -Sputum cultures -Full code -Heparin for DVT prophylaxis Atrial flutter, continue metoprolol, switch to heparin drip from Xarelto if there is any plans on surgical debridement Left leg cellulitis with possible necrotizing fasciitis with sepsis -We will do CT left leg with venous ultrasound -Vancomycin, Zosyn and clindamycin for possible necrotizing fasciitis -We will discuss with surgery based on CT results Sepsis -Secondary to left leg cellulitis, possible necrotizing fasciitis HEMA, secondary to sepsis, monitor Liver cirrhosis, with thrombocytopenia Physical deconditioning, protein calorie malnutrition, consult speech therapy, PT OT when mentation improves Goals of care discussion, currently patient cannot answer questions, goals of care was a change from patient's next of kin patient's mother, who wants patient to be full code, however she does not want her son to be on life-sustaining measures for the rest of his life Attestations Medical Necessity Statement*: Patient requires hospitalization, inpatient, greater than 2 midnights, for acute encephalopathy, alcohol withdrawal, acute respiratory failure, sepsis, cellulitis, possible necrotizing fasciitis, leukocytosis, HEMA, sepsis Coding Level of Care Code Acute Code for Chg Fwd Diagnoses COPD with acute exacerbation J44.1 Acute respiratory failure with hypoxemia J96.01 Cellulitis L03.90 Sepsis A41.9 Protein calorie malnutrition E46 Muscular deconditioning R29.898 Physical deconditioning R53.81 Tachycardia R00.0 Alcohol abuse with withdrawal F10.139 HEMA (acute kidney injury) N17.9 Goals of care, counseling/discussion Z71.89 Necrotizing fasciitis M72.6 Acute encephalopathy G93.40
--- NOTE | 2022-11-17 21:59 | CTR_ITS ---
PROCEDURE INFORMATION: Exam: CT Left Lower Extremity Without Contrast, Foot Exam date and time: 11/18/2022 2:52 AM Age: 62 years old Clinical indication: Cellulitis and swelling, leg or foot; Left; Patient HX: Swelling and redness to foot with circular black wound to top of foot near distal first metatarsal. ; [facility] TECHNIQUE: Imaging protocol: CT of the Left lower extremity without contrast was performed. Exam focused on the foot. Radiation optimization: All CT scans at this facility use at least one of these dose optimization techniques: automated exposure control; mA and/or kV adjustment per patient size (includes targeted exams where dose is matched to clinical indication); or iterative reconstruction. COMPARISON: [place] [id number] 17/11/2022 22:27 RADIATION DOSE METRICS: Total DLP (mGy-cm): 164.99 FINDINGS: Bones/joints: Diffuse osteopenia. Moderate mid to distal foot DJD. No fracture or focal bone destruction is identified. There is a small cyst present in the medial navicular. Soft tissues: Moderate mid to distal foot subcutaneous edema. There is no soft tissue air or gas noted. No large abscess is noted. Vasculature: Advanced diffuse vascular calcification noted. CT/CT foot LT wo con* [id number] IMPRESSION: 1. No evidence of fracture, focal bone destruction, or soft tissue gas to suggest necrotizing fasciitis. 2. Mid to distal foot subcutaneous edema/cellulitis. If there is concern for early osteomyelitis, an MRI would be more sensitive. 3. Chronic findings above with vascular calcifications and DJD.
--- NOTE | 2022-11-17 21:59 | CTR_ITS ---
PROCEDURE INFORMATION: Exam: CT Left Lower Extremity Without Contrast; Lower Leg Exam date and time: 11/18/2022 2:46 AM Age: 62 years old Clinical indication: Cellulitis and swelling, leg or foot; Lower leg; Left; Patient HX: Swelling and redness to tib/fib with large linear black wound running almost entire anterior aspect of tib/fib.; Necfascitis TECHNIQUE: Imaging protocol: CT of the Left lower extremity without contrast was performed. Exam focused on the lower leg. Radiation optimization: All CT scans at this facility use at least one of these dose optimization techniques: automated exposure control; mA and/or kV adjustment per patient size (includes targeted exams where dose is matched to clinical indication); or iterative reconstruction. COMPARISON: [place] [id number] 17/11/2022 22:27 RADIATION DOSE METRICS: Total DLP (mGy-cm): 877.2 FINDINGS: Bones/joints: Diffuse osteopenia. At least mild knee and ankle DJD. No fracture or focal bone destruction is identified. Soft tissues: Moderate lower leg subcutaneous edema. There is no soft tissue air or gas noted. No large abscess is noted. A few anterior chavez skin defects are visualized with ulcerations likely. Vasculature: Advanced diffuse vascular calcification noted. CT/CT lower leg LT wo con* [id number] IMPRESSION: 1. No evidence of fracture, focal bone destruction, or soft tissue gas to suggest necrotizing fasciitis. 2. Diffuse lower leg subcutaneous edema/cellulitis with a few chavez skin ulcerations. No definite or sizable abscess on this unenhanced exam. If there is concern for early osteomyelitis, an MRI would be more sensitive. 3. Chronic findings above with vascular calcifications and DJD.
--- NOTE | 2022-11-17 22:09 | ECG_ITS ---
[facility] Test Date: 2022-11-17 Pat Name: Ramesh Henry Department: Room: Gender: Male Financial Manager: : 1960 Requested By: Adolfo Alexis Order Number: [id number] Darrell MD: Wellington Constantino M.D. Measurements Intervals [place] Rate: 107 P: 88 ME: 134 QRS: 102 QRSD: 77 T: 87 QT: 342 QTc: 457 Interpretive Statements SINUS TACHYCARDIA RIGHT AXIS DEVIATION [QRS AXIS > 100] Compared to ECG 11/17/2022 17:04:46 Right-axis deviation now present Electronically Signed On 11-18-2022 14:45:48 TRANSPORT DRIVER by Wellington Constantino M.D. [id number]
[2022-11-17 22:28] LABS: Add Urine Microscopic? NO; Charge for UA Resulting for Rev
[2022-11-17] MEDS: morphine 4 mg/mL SDV 1 mL 1 MG IVP (22:28)
[2022-11-17 22:29] LABS: Erythrocyte Sedimentation Rate 13 mm/hr (0-10)
[2022-11-17 22:39] LABS: Platelet Count 98 10^3/cmm (130-400)
[2022-11-17 22:45] LABS: Amphetamines Screen Urine Negative (Negative); Barbiturates Screen Urine Negative (Negative); Benzodiazepines Screen Urine Negative (Negative); Cocaine Screen Urine Negative (Negative); Opiate Screen Urine Negative (Negative); PCP Screen Urine Negative (Negative); THC Screen Urine Negative (Negative)
[2022-11-17 22:49] LABS: Bilirubin Urine 2+ (Negative); Blood Urine Neg (Negative); Glucose Urine UA Norm (Normal); Ketones Urine Negative (Negative); Leukocyte Esterase Urine Negative (Negative); Nitrate Urine Negative (Negative); Protein Urine Neg (Negative); Specific Gravity, Urine 1.015 (1.005-1.030); Urine Appearance Clear (CLEAR); Urine Color Yellow (Yellow); Urobilinogen Urine Norm (Negative); pH Urine 5 (5-7)
[2022-11-17 22:54] LABS: Troponin(5th) Baseline 19 ng/L (0-15)
[2022-11-17] MEDS: dexmedetomidine 400 MCG in sodium chloride 0.9% (100 ml) 100 ML IV (22:58)
[2022-11-17 22:59] LABS: Creatine Phosphokinase 69 U/L (39-308); Lipase 9 U/L (13-60); Magnesium 2.2 mg/dL (1.7-2.3); Phosphorus 4.6 mg/dL (2.5-4.5)
[2022-11-17 23:03] LABS: Partial Thromboplastin Time 28.4 SECONDS (23.9-36.7)
[2022-11-17 23:06] LABS: Alcohol Level < 10 mg/dL (0-10)
[2022-11-17 23:06] LABS: Estmated Average Glucose 108; Hemoglobin A1C 5.4 % (4.0-6.0)
[2022-11-17 23:07] LABS: Fibrinogen 539 mg/dL (174-498)
[2022-11-17 23:13] LABS: D Dimer 3.46 ug/mIFEU (0-0.59)
[2022-11-17 23:17] LABS: Hepatitis A Antibody IgM Non-Reactive (Nonreactive); Hepatitis B Core IgM Non-Reactive (Nonreactive); Hepatitis B Surface Antigen Non-Reactive (Nonreactive); Hepatitis C Virus Antibody Non-Reactive (Nonreactive)
[2022-11-17 23:29] LABS: HIV 1 & 2 Antibody Non-Reactive (Non-Reactiv); HIV 1 & 2 Antigen Non-Reactive (Non-Reactiv)
[2022-11-17 23:45] LABS: Cortisol Random 29.34 ug/dL (2.47-19.5)
--- NOTE | 2022-11-17 23:54 | ECG_ITS ---
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 Measurements Intervals [place] Rate: 97 P: 87 [place]: 129 QRS: 75 QRSD: 81 T: 82 QT: 359 QTc: 458 Interpretive Statements SINUS RHYTHM WITH OCCASIONAL SUPRAVENTRICULAR PREMATURE COMPLEXES POSSIBLE ANTERIOR MYOCARDIAL INFARCTION , OF INDETERMINATE AGE [30 ms Q WAVE IN V3/V4, OR R < 0.2 mV IN V4] Compared to ECG 11/17/2022 22:09:06 Myocardial infarct finding now present Sinus tachycardia no longer present Right-axis deviation no longer present Electronically Signed On 11-18-2022 10:08:25 MFT by Ronel Barillas M.D. [id number]
[2022-11-18] VITALS (32 sets, daily range): BP systolic 86–128; BP diastolic 49–85; PULSE 84–114; RESP 14–27; TEMP 36.6–37.1; O2SAT 92–100
[2022-11-18 00:06] LABS: Troponin 5 2HR 18.39 ng/L (0-15); Troponin 5 2HR Delta -0.61 ABS# (0-10)
[2022-11-18] MEDS: LORazepam 2 mg/mL INJ 1 mL IVP ×2 (00:07→17:15)
[2022-11-18] MEDS: piperacillin-tazobactam 3.375 GM in sodium chloride 0.9% (plus) 50 ML IV ×4 (00:07→23:53)
[2022-11-18 00:08] LABS: Ammonia 43 umol/L (16-60)
[2022-11-18] MEDS: clindamycin 600 MG/50 ML PREMIX 100 MG IV ×3 (00:32→17:33)
[2022-11-18] MEDS: heparin drip 25,000 UNIT/500 ML PREMIX 16.19 UNIT IV (01:25)
--- NOTE | 2022-11-18 02:08 | PC.NURSE ---
0100- heparin drip ordered, nurse unsure of rationale, per h&p heparin for dvt prophylaxis. clarified with dr garcia heparin drip is for aflutter. dr garcia aware pt has been sinus tach on monitor. heparin drip started per order.
[2022-11-18 02:38] LABS: Folate Level 8.6 ng/mL (4.5-32.2)
[2022-11-18 03:57] LABS: Vitamin B12 896 pg/mL (232-1245)
--- NOTE | 2022-11-18 04:09 | ECG_ITS ---
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 Measurements Intervals [place] Rate: 96 P: 84 ID: 135 QRS: 88 QRSD: 91 T: 84 QT: 369 QTc: 467 Interpretive Statements SINUS RHYTHM WITH OCCASIONAL SUPRAVENTRICULAR PREMATURE COMPLEXES POSSIBLE ANTERIOR MYOCARDIAL INFARCTION , OF INDETERMINATE AGE [30 ms Q WAVE IN V3/V4, OR R < 0.2 mV IN V4] Compared to ECG 11/17/2022 23:54:31 No significant changes Electronically Signed On 11-18-2022 14:50:44 RENEWABLE ENERGY TECHNICIAN by Wellington Constantino M.D. [id number]
[2022-11-18 04:10] LABS: Basophils # 0.1 10^3/uL (0.0-0.1); Basophils % 0.5 %; Hematocrit 41.8 % (42.0-52.0); Hemoglobin 13.3 g/dL (11.7-16.6); Lymphocytes # 0.7 10^3/uL (0.8-4.8); Lymphocytes % 2.9 %; Mean Corpuscular HGB Conc 31.8 g/dL (30.0-36.0); Mean Corpuscular Hemoglobin 34.5 pg (28.0-34.0); Mean Corpuscular Volume 108.6 fl (80-94); Mean Platelet Volume 12.2 fL (7.4-10.4); Monocytes # 0.6 10^3/uL (0.2-0.9); Monocytes % 2.5 %; Neutrophils # 22.42 10^3/uL (1.8-7.7); Neutrophils % 93.2 %; Nucleated Red Blood Cells % 0 %; Platelet Count 93 10^3/cmm (130-400); Red Blood Count 3.85 10^6/uL (4.1-5.3); Red Cell Distribution Width 12.5 % (12.1-15.1); White Blood Count 24.1 10^3/uL (4.0-10.0)
[2022-11-18 04:41] LABS: Troponin 5 6HR 16.18 ng/L (0-15)
[2022-11-18 04:48] LABS: Alanine Aminotransferase 19 U/L (0-41); Albumin Level 3.2 g/dL (3.5-5.2); Alkaline Phosphatase 153 U/L (40-130); Anion Gap 18.4 (5-19); Aspartate Amino Transferase 34 U/L (0-40); Blood Urea Nitrogen 34 mg/dL (8-23); Calcium 8.9 mg/dL (8.5-10.5); Carbon Dioxide 23 mmol/L (22-29); Chloride 105 mmol/L (98-107); Globulin 3.6 g/dL (1.3-4.6); Glomerular Filtration Rate 61.6 mL/min (90-130); Glucose 130 mg/dL (65-115); NT Pro B Type Natriuretic Pept 2405 pg/mL (0-125); Osmolality Calculated 303 mOsm/kg (285-295); Potassium 4.4 mmol/L (3.5-5.1); Sodium 142 mmol/L (136-145); Total Bilirubin 0.9 mg/dL (0.15-1.2); Total Protein 6.8 g/dL (6.6-8.7)
[2022-11-18 04:54] LABS: Troponin 5 6HR Delta -2.82 ng/L (0-12)
--- NOTE | 2022-11-18 07:18 | PM.PN ---
Subjective Subjective: History and physical reviewed. Patient is sedated somewhat on Precedex. Nursing relates that he seemed to be more calm on the Precedex. No events overnight. Medications: Reviewed: Yes Vitals/I&O/Wt Last Vital Signs Temp 98 F 11/18/22 03:26 Pulse 96 11/18/22 06:18 Resp 19 H 11/17/22 23:42 BP 106/69 11/17/22 23:42 Pulse Ox 97 11/18/22 06:18 O2 Del Method 11/18/22 03:26 FiO2 35 11/18/22 06:18 11/17/22 11/18/22 11/18/22 22:59 06:59 14:59 Intake Total 50 / 50 53.25 / 103.25 Output Total 800 / 800 Balance 50 / 50 -746.75 / -696.75 Weight last 48 hrs Weight 53 kg Weight 53.977 kg Physical Exam Narrative: General exam is a sleepy white male, on BiPAP HEENT: BiPAP noted Neck is supple Cardiovascular regular rate and rhythm, heart sounds distant Lungs expiratory wheezes heard bilaterally Abdomen is soft, positive bowel sounds Extremities show left lower extremity with old appearing black eschars, and erythema surrounding. Distal cap refill intact Back several decub's noted, high iliac area Skin see findings above Neuro no obvious focal deficits Urinary Catheter Management: Carmichael: Cath Placed During This Visit: yes Reason for Continuing Indwelling Catheter: Accurate Measurement of Urinary Output in Critically Ill Patients Urinary Catheter Date of Insertion: 11/17/22 Urinary Catheter Time of Insertion: 22:19 Data 11/18/22 04:00 11/18/22 04:00 Micro: Microbiology 11/17/22 17:05 Blood Culture - Preliminary Blood SPECIMEN COLLECTED 11/17/22 17:17 Blood Culture - Preliminary Blood SPECIMEN COLLECTED A&P Assessment and plan (1) Acute encephalopathy: Patient presents with acute encephalopathy. This could be secondary to his sepsis, or secondary to alcohol withdrawal. He has not had a CT head done. If we wean his Precedex, and he is not able to follow directions or seems significantly impaired consider CT head (2) Alcohol abuse with withdrawal: Continue thiamine, folate Continue CIWA protocol Precedex was initiated, wean as tolerated (3) Sepsis: Patient with sepsis. Elevated white count, endorgan dysfunction with encephalopathy, acute kidney injury, etc. (4) Cellulitis: Continue IV antibiotics vancomycin, Zosyn, clindamycin. Discontinue clindamycin tomorrow if continues to improve Has some black eschars that may require debridement in the future, but not needed emergently. CT shows no evidence of fasciitis per CT (5) Acute respiratory failure with hypoxemia: Currently on BiPAP BNP was noted to be elevated Check echocardiogram for cardiac function ABG demonstrated CO2 retention. Likely secondary to COPD and COPD exacerbation. (6) COPD with acute exacerbation: Continue pulmonary toilet, budesonide Continue IV steroids but reduce to every 12 hours (7) Atrial flutter: Patient with history of atrial flutter. Currently in sinus rhythm Change heparin drip to Lovenox Need to reconcile medication list. He does not appear to be on a rate controlling medicine. (8) Liver disease: Patient with history of alcoholism. Has evidence of cirrhosis with low platelets, and radiological evidence. Monitor closely for bleeding Continue Protonix for GI prophylaxis Plan Acute kidney injury, already improved Attestations Medical Necessity Statement*: Needs continued hospitalization secondary multiorgan dysfunction secondary to sepsis Critical Care Time: The high probability of a clinically significant, sudden or life threatening deterioration of the patient's [hepatic, neurologic, infectious, renal] system(s) required my full and direct attention, intervention and personal management. The critical care time is as shown. This time is in addition to time spent performing any reported procedures but includes the following: [x] Data and vital sign review and interpretation [x] Patient assessment, examination and intervention [x] Documentation [x] Medication orders and management Critical Care Time (min): 44 Coding Level of Care Code Acute Code for [facility] Diagnoses Acute encephalopathy G93.40 Alcohol abuse with withdrawal F10.139 Sepsis A41.9 Cellulitis L03.90 Acute respiratory failure with hypoxemia J96.01 COPD with acute exacerbation J44.1 Atrial flutter I48.92 Liver disease K76.9
--- NOTE | 2022-11-18 07:20 | USCV_ITS ---
Ramesh Henry Age: 62 Gender: M : 1960 Exam Date: 11/18/2022 08:17 Ordering Phys: Som Franks MD Technologist: Jake Tran [place] [facility] [place]: elevated bmp arrythmia BP: 97 / 69 HR: 91 Rhythm: Sinus Technical Quality: Very technically difficult study MEASUREMENTS (Male / Female) Normal Values 2D ECHO LV Ejection Fraction MOD 2C 67.6 % LV Ejection Fraction 2C AL 67.0 % IVC Diameter 1.3 cm DOPPLER AV Peak Velocity 111.0 cm/s LVOT Peak Velocity 103.0 cm/s MV Area PHT 3.1 cm squared Mitral E to A Ratio 1.0 MV E' Velocity 54.0 cm/s Mitral E to MV E' Ratio 11.4 Mitral E to LV E' Lateral Ratio 10.1 Mitral E to LV E' Septal Ratio 13.3 TR Peak Velocity 161.3 cm/s TR Peak Gradient 10.4 mmHg TV Peak E Velocity 87.0 cm/s Right Atrial Pressure 3.0 mmHg Pulmonary Artery Systolic Pressu 13.4 mmHg FINDINGS Left Ventricle Technically limited quality echocardiogram because of poor ultrasonic windows. Left ventricle is normal in size. LV systolic function is normal with EF 55 to 60%. No regional wall motion abnormalities are seen. Right Ventricle Grossly normal Right Atrium Normal in size Left Atrium Not well visualized Mitral Valve Not well visualized Aortic Valve Not well visualized. No significant stenosis or regurgitation seen. Tricuspid Valve Not well visualized Pulmonic Valve Not visualized Pericardium Not well visualized Aorta Not well visualized IVC Appears to be normal CONCLUSIONS Technically very limited quality echocardiogram because of poor ultrasonic windows. LV systolic function is normal with EF 55 to 60%. Valvular structures not well visualized. Comparison to prior echocardiogram not possible because of limited visualized Wellington Constantino MD (Electronically Signed) Final Date: 18 November 2022 16:47 S
[2022-11-18] MEDS: ipratropium-albuterol 3 mL Neb INHALATION ×5 (08:35→23:53)
--- NOTE | 2022-11-18 09:01 | PC.PHAR ---
PT UNABLE TO VERIFY- PTS CONTACT (MOTHER) UNABLE TO VERIFY- MEDICATIONS VERIFIED USING [facility] CURRENT MEDICATIONS
[2022-11-18] MEDS: budesonide 0.5 mg/2 mL Neb INHALATION ×2 (10:45→20:57)
--- NOTE | 2022-11-18 12:47 | CTR_ITS ---
PROCEDURE INFORMATION: Exam: CT Head Without Contrast Exam date and time: 11/18/2022 4:58 PM Age: 62 years old Clinical indication: Altered mental status/memory loss; Additional info: Confusion, agitation, combativeness, TECHNIQUE: Imaging protocol: Computed tomography of the head without contrast. Radiation optimization: All CT scans at this facility use at least one of these dose optimization techniques: automated exposure control; mA and/or kV adjustment per patient size (includes targeted exams where dose is matched to clinical indication); or iterative reconstruction. COMPARISON: CT head wo con* [id number] 07/14/2020 3:24 PM RADIATION DOSE METRICS: Total DLP (mGy-cm): 914.48 FINDINGS: Brain: Mild diffuse cortical volume loss. Mild hypodensities in supratentorial periventricular and subcortical white matter, consistent with microangiopathy. No intracranial hemorrhage. Cerebral ventricles: No ventriculomegaly. Paranasal sinuses: Mucosal thickening in the right maxillary sinus. Hyperostosis of the right maxillary sinus. Mastoid air cells: Visualized mastoid air cells are well aerated. Nasal cavity: Leftward deviation of the nasal septum. Bones/joints: The bones are otherwise intact. No fracture. Soft tissues: Unremarkable. Vasculature: No hyperdense artery. CT/CT head wo con* [id number] IMPRESSION: No acute intracranial abnormality.
[2022-11-18] MEDS: enoxaparin 60 mg/0.6 mL Syringe 50 MG SUBCUT ×2 (13:10→23:52)
[2022-11-18] MEDS: morphine 4 mg/mL SDV 1 mL 1 MG IVP (13:10)
--- NOTE | 2022-11-18 17:44 | PC.SLP ---
The pt is not able to participate at this time. [facility] will attempt to follow-up with tomorrow.
[2022-11-18] MEDS: vancomycin 750 MG in sodium chloride 0.9% 250 ML 250 MG IV (18:29)
[2022-11-18] MEDS: LORazepam 2 mg/mL INJ 1 mL IM (19:53)
[2022-11-19] VITALS (53 sets, daily range): BP systolic 94–172; BP diastolic 62–118; PULSE 68–124; RESP 16–32; TEMP 36.1–37.1; O2SAT 87–100
[2022-11-19] MEDS: LORazepam 2 mg/mL INJ 1 mL IVP ×4 (00:10→22:11)
[2022-11-19] MEDS: clindamycin 600 MG/50 ML PREMIX 100 MG IV ×3 (01:05→16:54)
[2022-11-19] MEDS: morphine 4 mg/mL SDV 1 mL 1 MG IVP ×2 (02:52→21:15)
[2022-11-19] MEDS: ipratropium-albuterol 3 mL Neb INHALATION ×6 (03:10→23:18)
[2022-11-19 03:20] LABS: Basophils # 0.1 10^3/uL (0.0-0.1); Basophils % 0.2 %; Hematocrit 36.2 % (42.0-52.0); Hemoglobin 11.4 g/dL (11.7-16.6); Lymphocytes # 0.8 10^3/uL (0.8-4.8); Lymphocytes % 3.3 %; Mean Corpuscular HGB Conc 31.5 g/dL (30.0-36.0); Mean Corpuscular Hemoglobin 34.5 pg (28.0-34.0); Mean Corpuscular Volume 109.7 fl (80-94); Mean Platelet Volume 11.8 fL (7.4-10.4); Monocytes # 1.3 10^3/uL (0.2-0.9); Monocytes % 5.4 %; Neutrophils # 21.69 10^3/uL (1.8-7.7); Neutrophils % 90.4 %; Nucleated Red Blood Cells % 0 %; Platelet Count 104 10^3/cmm (130-400); Red Cell Distribution Width 12.7 % (12.1-15.1)
[2022-11-19 03:27] LABS: Ammonia 39 umol/L (16-60)
[2022-11-19 03:41] LABS: Alanine Aminotransferase 16 U/L (0-41); Alkaline Phosphatase 115 U/L (40-130); Anion Gap 15.1 (5-19); Aspartate Amino Transferase 28 U/L (0-40); Blood Urea Nitrogen 41 mg/dL (8-23); Calcium 8.6 mg/dL (8.5-10.5); Carbon Dioxide 26 mmol/L (22-29); Chloride 109 mmol/L (98-107); Globulin 3.6 g/dL (1.3-4.6); Glomerular Filtration Rate 85.8 mL/min (90-130); Glucose 159 mg/dL (65-115); Osmolality Calculated 315 mOsm/kg (285-295); Potassium 4.1 mmol/L (3.5-5.1); Sodium 146 mmol/L (136-145); Total Bilirubin 0.4 mg/dL (0.15-1.2); Total Protein 6.6 g/dL (6.6-8.7)
[2022-11-19 03:43] LABS: Magnesium 2.4 mg/dL (1.7-2.3)
--- NOTE | 2022-11-19 07:18 | USCV_ITS ---
Ramesh Henry Age: 62 Gender: M : 1960 Exam Date: 11/19/2022 15:59 Ordering Phys: Som Franks MD Technologist: Thomas Khan Exam Location: [facility] – [place] Indication: decreased pulses RIGHT LEFT Brachial 160.00 mmHg Brachial 159.00 mmHg Pressure (mmHg) Waveform Pressure (mmHg) Waveform 94.00 LIEUTENANT COLONEL 83.00 95.00 DPA 83.00 0.59 Ankle/Brachial Index 0.52 FINDINGS Resting ARMIDA of 0.59 on the right and 0.52 on the left side The PVR waveforms showing loss of dicrotic notch bilaterally, at the ankles. CONCLUSIONS Abnormal resting ABIs and PVR waveforms suggesting moderate peripheral arterial disease bilaterally Dr Butch Hurd MD FAC (Electronically Signed) Final Date: 06 December 2022 07:58 S
[2022-11-19] MEDS: piperacillin-tazobactam 3.375 GM in sodium chloride 0.9% (plus) 50 ML IV ×3 (07:36→23:37)
[2022-11-19] MEDS: sodium chloride 0.45% 1,000 ML 50 ML IV (07:39)
[2022-11-19] MEDS: budesonide 0.5 mg/2 mL Neb INHALATION ×2 (07:39→20:10)
--- NOTE | 2022-11-19 08:48 | PM.PN ---
Subjective Subjective: Became agitated last night, Precedex restarted, and placed back on BiPAP. Patient arouses briefly with stimulation. Medications: Reviewed: Yes Vitals/I&O/Wt Last Vital Signs Temp 98.8 F 11/19/22 03:49 Pulse 90 11/19/22 07:44 Resp 19 H 11/19/22 07:39 BP 123/59 11/18/22 16:00 Pulse Ox 97 11/19/22 07:44 O2 Del Method 11/19/22 07:39 O2 Flow Rate 2 11/18/22 20:59 FiO2 35 11/19/22 07:51 11/18/22 11/19/22 11/19/22 22:59 06:59 14:59 Intake Total 350 / 626.981 107.4 / 734.381 32.884 / 32.884 Output Total 600 / 600 600 / 1200 Balance -250 / 26.981 -492.6 / -465.619 32.884 / 32.884 Weight last 48 hrs Weight 53 kg Weight 53.977 kg Physical Exam Narrative: General exam is a male on BiPAP, who arouses briefly with stimulation. HEENT: BiPAP noted Neck is supple Cardiovascular regular rate and rhythm, heart sounds distant Lungs diminished breath sounds bilaterally. Wheezing improved. Abdomen is soft, positive bowel sounds Extremities show left lower extremity with old appearing black eschars, and erythema surrounding. Distal cap refill intact Back several decub's noted, high iliac area Skin see findings above Neuro no obvious focal deficits Urinary Catheter Management: Carmichael: Cath Placed During This Visit: yes Reason for Continuing Indwelling Catheter: Accurate Measurement of Urinary Output in Critically Ill Patients Urinary Catheter Date of Insertion: 11/17/22 Urinary Catheter Time of Insertion: 22:19 Data 11/19/22 03:03 11/19/22 03:03 Micro: Microbiology 11/17/22 17:17 Blood Culture - Preliminary Blood 11/17/22 17:05 Blood Culture - Preliminary Blood A&P Assessment and plan (1) Acute encephalopathy: Patient presents with acute encephalopathy. This could be secondary to his sepsis, or secondary to alcohol withdrawal. CT head performed. No acute findings. Appeared to improve somewhat yesterday, but got more agitated last night so back on Precedex and BiPAP (2) Alcohol abuse with withdrawal: Continue thiamine, folate Continue CIWA protocol Precedex was initiated, wean as tolerated (3) Sepsis: Patient with sepsis. Elevated white count, endorgan dysfunction with encephalopathy, acute kidney injury, etc. Continue vancomycin, Zosyn, clindamycin. Consider discontinuation of clindamycin after today if improving Blood cultures growing gram-positive cocci. Repeat cultures tomorrow. Await ID and sensitivity. (4) Cellulitis: Continue IV antibiotics vancomycin, Zosyn, clindamycin. Discontinue clindamycin tomorrow if continues to improve Has some black eschars that may require debridement. CT shows no evidence of fasciitis per CT At this point go ahead and consult surgery for their opinion on when and if debridement is needed during this hospitalization Check ABIs. Pulses palpable but somewhat difficult to feel (5) Acute respiratory failure with hypoxemia: Currently on BiPAP BNP was noted to be elevated Echocardiogram poor quality but grossly normal ABG demonstrated CO2 retention. Likely secondary to COPD and COPD exacerbation. (6) COPD with acute exacerbation: Continue pulmonary toilet, budesonide Reduce IV steroids to every 24 hours. Change to p.o. when patient is reliably taking p.o. (7) Atrial flutter: Patient with history of atrial flutter. Currently in sinus rhythm Continue Lovenox Continue metoprolol Rate controlled currently (8) Liver disease: Patient with history of alcoholism. Has evidence of cirrhosis with low platelets, and radiological evidence. Monitor closely for bleeding Continue Protonix for GI prophylaxis Ammonia level checked and normal today Plan Acute kidney injury, already improved Full code currently Lovenox will suffice for DVT prophylaxis IV fluids started at 50 cc an hour secondary to poor oral intake, climbing sodium Attestations Medical Necessity Statement*: Needs continued hospital stay secondary to alcohol withdrawal requiring Precedex, sepsis, bacteremia requiring IV antibiotics, multiorgan dysfunction Critical Care Time: The high probability of a clinically significant, sudden or life threatening deterioration of the patient's [pulmonary, electrolyte, metabolic secondary alcoholism and withdrawal, neurologic, hepatic] system(s) required my full and direct attention, intervention and personal management. The critical care time is as shown. This time is in addition to time spent performing any reported procedures but includes the following: [x] Data and vital sign review and interpretation [x] Patient assessment, examination and intervention [x] Documentation [x] Medication orders and management Critical Care Time (min): 32 Coding Level of Care Code Acute Code for Chg Fwd Diagnoses Acute encephalopathy G93.40 Alcohol abuse with withdrawal F10.139 Sepsis A41.9 Cellulitis L03.90 Acute respiratory failure with hypoxemia J96.01 COPD with acute exacerbation J44.1 Atrial flutter I48.92 Liver disease K76.9
--- NOTE | 2022-11-19 10:29 | PM.CONSULT ---
Providers/Reason For Consult Consulting Physician/Specialty*: Dr. Chris Maza, DO/General surgery Reason for Consult*: Left lower extremity decubitus ulcer Attending Physician: Savanah Hunt MD Primary Care Provider: [facility] History of Present Illness History of Present Illness Ramesh Henry is a 62 year old male who originally presented to the hospital with altered mental status and shortness of breath. He is a known alcoholic. General surgery was consulted for a left lower extremity decubitus ulcer. Patient is lethargic. Review of systems and HPI are limited secondary to this. Review of Systems General: Reports: ROS unobtainable due to medical condition Medications/Allergies Home Medications Medication Instructions Recorded Confirmed Last Taken Type albuterol sulfate 90 mcg/actuation 2 puff inhalation QID PRN 07/14/20 11/18/22 Unknown History aerosol inhaler Shortness Of Breath budesonide-formoterol HFA 80 2 puff inhalation BID 07/14/20 11/18/22 Unknown History mcg-4.5 mcg/actuation aerosol inhaler cholecalciferol (vitamin D3) 50 2,000 unit PO DAILY 07/14/20 11/18/22 Unknown History mcg (2,000 unit) tablet (Vitamin D3) etodolac 400 mg tablet 400 mg PO BID PRN Pain 07/14/20 11/18/22 Unknown History gabapentin 100 mg capsule 200 mg PO TID 07/14/20 11/18/22 Unknown History pantoprazole 40 mg tablet,delayed 40 mg PO BID 07/14/20 11/18/22 Unknown History release (Protonix) rivaroxaban 20 mg tablet 20 mg PO QPM 07/14/20 11/18/22 Unknown History acamprosate 333 mg tablet,delayed 333 mg PO TID 11/18/22 11/18/22 Unknown History release fluticasone 100 mcg-salmeterol 50 1 inh inhalation BID 11/18/22 11/18/22 Unknown History mcg/dose blistr powdr for inhalation guaifenesin 400 mg tablet 400 mg PO Q4H PRN Congestion 11/18/22 11/18/22 Unknown History lactulose 10 gram/15 mL oral 30 g PO BID PRN Delirium 11/18/22 11/18/22 Unknown History solution melatonin 3 mg tablet 9 mg PO BEDTIME 11/18/22 11/18/22 Unknown History Allergies Allergy/AdvReac Type Severity Reaction Status Date / Time No Known Allergies Allergy Verified 11/18/22 08:53 Current Medications Generic Name Dose Route Start Last Admin Trade Name Zeferino PRN Reason Stop Dose Admin Albuterol/Ipratropium 3 ml 11/18/22 20:45 11/20/22 15:32 Ipratropium-Albuterol 3 Ml Neb INHALATION 3 ml Q4H.RESPIRATORY JOLYNN Administration Budesonide 0.5 mg 11/18/22 21:00 11/20/22 07:39 Budesonide 0.5 Mg/2 Ml Neb INHALATION 0.5 mg BID.RESPIRATORY JOLYNN Administration Collagenase 1 applic 11/19/22 11:00 11/20/22 11:47 Collagenase Oint 30 Gm TOPICAL 1 applic DAILY JOLYNN Administration Enoxaparin Sodium 50 mg 11/18/22 12:30 11/20/22 12:55 Enoxaparin 60 Mg/0.6 Ml Syringe SUBCUT 50 mg Q12H JOLYNN Administration Folic Acid 1 mg 11/18/22 09:00 11/20/22 10:21 Folic Acid 1 Mg Tablet PO Not Given DAILY JOLYNN Dexmedetomidine HCl 400 mcg/ 104 mls @ 0 mls/hr 11/17/22 22:17 11/20/22 11:47 Sodium Chloride IV 0 mcg/kg/hr .Q0M JOLYNN 0 mls/hr Titration Protocol Per Protocol Vancomycin HCl 750 mg/ Sodium 250 mls @ 250 mls/hr 11/18/22 18:00 11/20/22 16:59 Chloride IV 250 mls/hr Q24H JOLYNN Administration Piperacillin Sod/Tazobactam 50 mls @ 12.5 mls/hr 11/18/22 08:00 11/20/22 16:19 Sod 3.375 gm/ Sodium Chloride IV 12.5 mls/hr Q8H JOLYNN Administration Sodium Chloride 1,000 mls @ 50 mls/hr 11/19/22 07:15 11/20/22 04:28 Sodium Chloride 0.45% IV 50 mls/hr .Q20H JOLYNN Administration Midazolam HCl 100 mg/ Sodium 100 mls @ 0 mls/hr 11/20/22 10:45 11/20/22 14:50 Chloride IV 3 mg/hr .Q0M JOLYNN 3 mls/hr Titration Protocol Per Protocol Fentanyl 2,500 mcg/ Sodium 250 mls @ 0 mls/hr 11/20/22 10:45 11/20/22 11:46 Chloride IV 25 mcg/hr .Q0M JOLYNN 2.5 mls/hr Administration Protocol Per Protocol Lorazepam 2 mg 11/17/22 22:17 11/18/22 19:53 Lorazepam 2 Mg/Ml Inj 1 Ml IM 2 mg Q4H PRN Administration ALCOWD Protocol Lorazepam 2 mg 11/17/22 22:17 11/19/22 22:11 Lorazepam 2 Mg/Ml Inj 1 Ml IVP 2 mg PRN PRN Administration WITHDRAWAL Protocol Methylprednisolone Sodium Succinate 40 mg 11/20/22 07:00 11/20/22 06:43 Methylprednisolone Sod Succ 40 Mg/Ml Inj IVP 40 mg Q24H JOLYNN Administration Metoprolol Tartrate 25 mg 11/18/22 09:00 11/20/22 17:05 Metoprolol Tartrate 50 Mg Tablet PO 25 mg BID JOLYNN Administration Morphine Sulfate 2 mg 11/20/22 00:36 11/20/22 00:42 Morphine 4 Mg/Ml Sdv 1 Ml IVP 2 mg Q4H PRN Administration SEVERE PAIN Multivitamins Therapeutic 1 tab 11/18/22 09:00 11/20/22 10:21 Multivitamin Therapeutic Tablet PO Not Given DAILY JOLYNN Pantoprazole Sodium 40 mg 11/20/22 17:00 11/20/22 17:07 Pantoprazole 40 Mg Sdv IVP 40 mg Q12H JOLYNN Administration Rocuronium [place] 50 mg 11/20/22 10:33 11/20/22 10:46 Rocuronium 10 Mg/Ml Inj 5ml IVP 50 mg Q1H PRN Administration SHORTNESS OF BREATH Thiamine Mononitrate 100 mg 11/18/22 09:00 11/20/22 10:21 Thiamine 100 Mg Tablet PO Not Given DAILY JOLYNN Thiamine Mononitrate 100 mg 11/18/22 09:00 11/20/22 10:21 Thiamine 100 Mg Tablet PO Not Given DAILY JOLYNN PFSH Acute PFSH: Medical History Alcohol dependence Atrial flutter COPD (chronic obstructive pulmonary disease) Essential (primary) hypertension Liver disease Post traumatic stress disorder (PTSD) Surgical History No pertinent past surgical history Family History Mother CAD (coronary artery disease) Other Colon polyp Social History Smoking and tobacco status: never smoked Alcohol intake: current Substance/Drug Use: never Vitals/I&O/Wt Last Vital Signs Temp 99.5 F 11/20/22 08:15 Pulse 79 11/20/22 15:37 Resp 14 11/20/22 16:38 BP 130/81 11/20/22 12:45 Pulse Ox 100 11/20/22 16:38 O2 Del Method 11/20/22 15:33 O2 Flow Rate 2 11/18/22 20:59 FiO2 40 11/20/22 16:38 11/20/22 11/20/22 11/20/22 06:59 14:59 22:59 Intake Total 1414.416 / 1699.736 148.165 / 148.165 0 / 148.165 Output Total 325 / 750 Balance 1089.416 / 949.736 148.165 / 148.165 0 / 148.165 Weight last 48 hrs Weight 128 lb Physical Exam Narrative: General : Patient is well developed , lethargic in the ICU Head : Normal cephalic, a-traumatic. Ears : Pinnae and external canal are normal. Hearing is normal. Eyes : PERRLA, Sclera and injection are normal. No conjunctival discharge. Nose : Mucous membranes are without erythema. Throat : buccal mucosa is normal, gums are without significant recession or hypertrophy. Lungs : Equal chest rise bilaterally, no use of accessory muscles, trachea is midline. Cor : Rate and rhythm are normal. Abdomen : Soft, ND, NT, no g/r/m Extremities : No edema, no cyanosis or clubbing, there is a large decubitus ulcer on the left anterior leg with an eschar as well as a smaller wound with eschar on the left foot. No current cellulitis or signs of active infection. Urinary Catheter Management: Carmichael: Cath Placed During This Visit: yes Reason for Continuing Indwelling Catheter: Accurate Measurement of Urinary Output in Critically Ill Patients Urinary Catheter Date of Insertion: 11/17/22 Urinary Catheter Time of Insertion: 22:19 Data 11/20/22 04:05 11/20/22 04:05 Micro: Microbiology 11/20/22 11:35 Gram Stain - Final Sputum - Endotracheal Tube Aspirate 11/17/22 22:16 Urine Culture - Final Urine Catheterized 11/20/22 04:00 Blood Culture - Preliminary Blood SPECIMEN COLLECTED 11/20/22 04:05 Blood Culture - Preliminary Blood SPECIMEN COLLECTED A&P Assessment and plan (1) Unstageable decubitus ulcer: Plan Santyl and sterile dressings to the left lower extremity decubitus ulcers once daily Medical management per hospitalist Will follow Coding Level of Care Code Acute Code for [facility] Diagnoses Unstageable decubitus ulcer L89.95
--- NOTE | 2022-11-19 10:35 | PC.CHAP ---
Pastoral Care Encounter/Spiritual Assessment Type of Contact [] Declined senior benefits specialist visit [] Patient/Family/Request visit [] Outpatient visit [] Follow-up visit [] Physician referral [] Code/Alert [x] Routine visit [] Staff referral [] Actively dying [x] Patient sleeping [] Family support [] [] Out of room [] Palliative care [] [] Receiving care in room [] Pre-surgical visit [] Trauma [] Long length of stay [x] ICU visit [x] Other: ox mask Relational/Emotional Strength [] Patient feels connected with others/family/visitors/staff [] Distress [] Loneliness/isolation [] Abandonment Spirituality of Patient [] Person of Mena [] Attends Church of their Mena [] Believes in Prayer [] Reads Bible or Jainism materials [] There are Spiritual issues to be addressed Nuclear Licensing 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 Interventions [x] Prayer [] Active listening [] Non-anxious presence [] Spiritual/emotional support [] Crisis/trauma care [] Spiritual counseling [] Bereavement support [] Provided bereavement packet [] Provided Bible/devotional materials [] Provided toy/stuffed animal, coloring book to patient or family member [] Provided Communion [] Anointing/[place] [] Salvation [x] Completed spiritual assessment [] Other: Impact on Illness or Injury [] Angry [] Fearful [] Anxious [] Often cries [] Exhaustion [] Unable to work [] Unable to attend episcopal [] Unable to walk/stand [] Unable to read [] Unable to drive [] Unable to eat/drink [] Unable to sleep [] Unable to be with family [] Patient intubated [] Other: Summary Time spent with patient
--- NOTE | 2022-11-19 10:57 | PC.SLP ---
Discussed with the patient's nurse this morning, he indicates that the patient is not quite ready for an assessment for swallowing at this time.
[2022-11-19] MEDS: dexmedetomidine 400 MCG in sodium chloride 0.9% (100 ml) 100 ML 7.02 MCG IV (11:02)
[2022-11-19] MEDS: collagenase oint 30 gm 1 APPLIC TOPICAL (11:59)
[2022-11-19] MEDS: enoxaparin 60 mg/0.6 mL Syringe 50 MG SUBCUT ×2 (12:45→23:42)
[2022-11-19 16:32] LABS: Alveolar-Arterial Oxygen Gradi 8.7 mmHg (5-10); Arterial Blood Gas Hematocrit 37.7 % (42-52); Base Excess ABG -0.6 mmol/L (-2.0-2.0); Blood Gas Allen Test Pos; Blood Gas Operator Identificat CAK; Blood Gas Sample Site Radial, left; Blood Gas Sample Type Arterial; Carboxyhemoglobin 0.7 %THgb (0.4-20.1); HGB O2 Sat 94.8 % (95-100); Ionized Calcium Level - ABG 1.3 mmol/L (1.1-1.4); Methemoglobin 0.8 % (0.4-1.5); Oxygen Device BIPAP; Oxygen Saturation ABG 96.2; PO2 ABG 95.3 mmHg (80.0-100.0); Potassium Level - ABG 4.1 mmol/L (3.5-5.0); Total Hemoglobin 12.3 g/dL (14-18)
--- NOTE | 2022-11-19 17:02 | W.PM.EVENTAC ---
Event Note Event Note: Discussed with family CODE STATUS. They are okay with all interventions, with the exception of CPR.
[2022-11-19] MEDS: vancomycin 750 MG in sodium chloride 0.9% 250 ML 250 MG IV (18:40)
[2022-11-19 18:54] LABS: ABG PCO2 65.2 mmHg (35-45); ABG PH Result 7.26 (7.35-7.45); Alveolar-Arterial Oxygen Gradi 6.6 mmHg (5-10); Arterial Blood Gas Hematocrit 35.1 % (42-52); Base Excess ABG 0.8 mmol/L (-2.0-2.0); Blood Gas Allen Test Pos; Blood Gas Operator Identificat CAK; Blood Gas Sample Site Radial, left; Blood Gas Sample Type Arterial; Carboxyhemoglobin 0.8 %THgb (0.4-20.1); HCO3 ABG 29.1 mmol/L (22-26); HGB O2 Sat 97.2 % (95-100); Ionized Calcium Level - ABG 1.2 mmol/L (1.1-1.4); Methemoglobin 0.7 % (0.4-1.5); Oxygen Device BIPAP; Oxygen Saturation ABG 98.6; Potassium Level - ABG 4.2 mmol/L (3.5-5.0); Total Hemoglobin 11.4 g/dL (14-18)
--- NOTE | 2022-11-19 22:00 | PC.NURSE ---
Unequal Pupils Patient noted to have unequal pupils which had not been previously documented. No neurological changes noted. Dr. Alexis notified; no new orders received.
--- NOTE | 2022-11-19 23:50 | PC.NURSE ---
Lovenox Patient's platelet count low at 104; 50 mg lovenox due at 0030. Dr. Alexis contacted and order received to administer lovenox as ordered. See MAR for details.
[2022-11-20] VITALS (113 sets, daily range): BP systolic 95–173; BP diastolic 67–117; PULSE 52–127; RESP 13–47; TEMP 36.4–37.5; O2SAT 95–100; BMI 19.4
[2022-11-20] MEDS: morphine 4 mg/mL SDV 1 mL 2 MG IVP (00:42)
--- NOTE | 2022-11-20 00:45 | PC.NURSE ---
Morphine Intermittently throughout evening, patient's HR would increase to the high 120s while blood pressure would increase as high as 171/106. During these times, patient's arms and legs would move listlessly in the bed and his RR would increase into the 30s. Morphine and ativan administered per DEC. Shortly after administrations, patient's HR, blood pressure, and RR would decrease to normal levels. However, prior to next dose allowed, events would occur again. Dr. Alexis contacted and order received to increase PRN IVP morphine dose to 2 mg Q4HR, allowing for the first dose to be administered now. See MAR for details.
[2022-11-20] MEDS: clindamycin 600 MG/50 ML PREMIX 100 MG IV ×2 (01:37→10:25)
[2022-11-20] MEDS: ipratropium-albuterol 3 mL Neb INHALATION ×6 (04:03→23:07)
--- NOTE | 2022-11-20 04:24 | PC.NURSE ---
ABG Patient remained on bipap throughout shift, last ABG completed at 1842 on 11/19/22 with a PH of 7.26. Dr. Alexis contacted and order received for AM ABG routinely.
[2022-11-20] MEDS: dexmedetomidine 400 MCG in sodium chloride 0.9% (100 ml) 100 ML 11.23 MCG IV (04:27)
[2022-11-20] MEDS: sodium chloride 0.45% 1,000 ML 50 ML IV (04:28)
[2022-11-20 04:29] LABS: Basophils % 0.2 %; Hematocrit 36.2 % (42.0-52.0); Hemoglobin 11.1 g/dL (11.7-16.6); Lymphocytes # 0.8 10^3/uL (0.8-4.8); Lymphocytes % 4.4 %; Mean Corpuscular HGB Conc 30.7 g/dL (30.0-36.0); Mean Platelet Volume 12.3 fL (7.4-10.4); Monocytes # 1.4 10^3/uL (0.2-0.9); Monocytes % 7.8 %; Neutrophils % 86.4 %; Nucleated Red Blood Cells % 0 %; Platelet Count 96 10^3/cmm (130-400); Red Blood Count 3.26 10^6/uL (4.1-5.3); Red Cell Distribution Width 12.9 % (12.1-15.1); White Blood Count 18.1 10^3/uL (4.0-10.0)
[2022-11-20 04:39] LABS: ABG PH Result 7.24 (7.35-7.45); Arterial Blood Gas Hematocrit 42.4 % (42-52); Base Excess ABG 0.3 mmol/L (-2.0-2.0); Blood Gas Allen Test Pos; Blood Gas Operator Identificat JB; Blood Gas Sample Site Radial, right; Blood Gas Sample Type Arterial; Carboxyhemoglobin 0.9 %THgb (0.4-20.1); HCO3 ABG 29.7 mmol/L (22-26); HGB O2 Sat 96.3 % (95-100); Ionized Calcium Level - ABG 1.3 mmol/L (1.1-1.4); Methemoglobin 0.7 % (0.4-1.5); Oxygen Device BIPAP; Oxygen Saturation ABG 97.8; Potassium Level - ABG 4.4 mmol/L (3.5-5.0); Total Hemoglobin 13.8 g/dL (14-18)
[2022-11-20 04:49] LABS: Alanine Aminotransferase 13 U/L (0-41); Alkaline Phosphatase 97 U/L (40-130); Anion Gap 13.4 (5-19); Aspartate Amino Transferase 15 U/L (0-40); Blood Urea Nitrogen 49 mg/dL (8-23); Calcium 8.7 mg/dL (8.5-10.5); Carbon Dioxide 28 mmol/L (22-29); Chloride 111 mmol/L (98-107); Globulin 3.8 g/dL (1.3-4.6); Glomerular Filtration Rate 98.3 mL/min (90-130); Glucose 129 mg/dL (65-115); Osmolality Calculated 321 mOsm/kg (285-295); Potassium 4.4 mmol/L (3.5-5.1); Sodium 148 mmol/L (136-145); Total Bilirubin 0.3 mg/dL (0.15-1.2); Total Protein 6.8 g/dL (6.6-8.7)
--- NOTE | 2022-11-20 06:50 | PC.NURSE ---
Urine output Patient's urine output for shift 325 ml. Additionally, patient's sodium level increased to 148. 1/2 NS administering at 50 ml/hr. Dr. Alexis contacted and no new orders received.
--- NOTE | 2022-11-20 07:00 | XRR_ITS ---
PROCEDURE INFORMATION: Exam: XR Chest Exam date and time: 11/20/2022 5:20 AM Age: 62 years old Clinical indication: Other: Resp failure; Additional info: Follow up resp failure TECHNIQUE: Imaging protocol: Radiologic exam of the chest. Views: 1 view. COMPARISON: CR (CHEST, ) 17/11/2022 17:45 FINDINGS: Lungs: Moderate COPD. No consolidation. Pleural spaces: Unremarkable. No pleural effusion. No pneumothorax. Heart/Mediastinum: Unremarkable. No cardiomegaly. Diaphragm: Bilateral unchanged CP angle blunting. Bones/joints: Moderate spine DJD. XR/XR chest 1V portable [id number] IMPRESSION: Stable chest with no significant change from 3 days ago.
[2022-11-20] MEDS: budesonide 0.5 mg/2 mL Neb INHALATION ×2 (07:39→19:42)
[2022-11-20] MEDS: piperacillin-tazobactam 3.375 GM in sodium chloride 0.9% (plus) 50 ML IV ×2 (07:48→16:19)
[2022-11-20] MEDS: etomidate 2 mg/mL INJ SDV 10 mL 12 MG IVP (10:45)
[2022-11-20] MEDS: rocuronium 10 mg/mL INJ 5mL 50 MG IVP (10:46)
[2022-11-20] MEDS: fentaNYL 50 mcg/mL INJ 2mL IVP (10:47)
[2022-11-20] MEDS: midazolam 1 mg/mL INJ 2 mL 2 MG IVP (10:48)
--- NOTE | 2022-11-20 11:18 | XRR_ITS ---
PROCEDURE INFORMATION: Exam: XR Chest Exam date and time: 11/20/2022 11:24 AM Age: 62 years old Clinical indication: Shortness of breath; Additional info: Post intubation TECHNIQUE: Imaging protocol: Radiologic exam of the chest. Views: 1 view. COMPARISON: CR (CHEST, ) 11/20/2022 5:20 AM FINDINGS: Tubes, catheters and devices: Endotracheal tube is in satisfactory position. Lungs: The lungs are somewhat hyperinflated with increased interstitial markings, likely representing COPD. No evidence of focal consolidation to suggest pneumonia. Pleural spaces: Unremarkable. No pleural effusion. No pneumothorax. Heart/Mediastinum: Stable cardiomediastinal silhouette. Bones/joints: Degenerative changes of the spine seen. XR/XR chest 1V portable [id number] IMPRESSION: No evidence of focal consolidation. COPD changes.
[2022-11-20] MEDS: collagenase oint 30 gm 1 APPLIC TOPICAL (11:47)
--- NOTE | 2022-11-20 12:14 | PM.CONSULT ---
Providers/Reason For Consult Consulting Physician/Specialty*: Kin Harley MD FCCP/pulmonary critical care Reason for Consult*: Hypercapnic respiratory failure and altered mental status Requesting Physician: Savanah Hunt MD Attending Physician: Savanah Hunt MD Primary Care Provider: [facility] History of Present Illness History of Present Illness Ramesh Henry is a 62 year old male with a past medical history of alcoholism, liver cirrhosis, atrial flutter on Xarelto, history of COPD presented to [facility] for altered mental status, shortness of breath, left leg swelling erythema on 11/17/2021. Since admission he was on BiPAP for hypercapnic respiratory failure. He has history of COPD. Family reported patient lives by himself and has home health aide, and he mostly uses a wheelchair as he is disabled and occasionally wheelchair. At baseline patient is communicative, alert oriented. He does drink alcohol and does not take care of himself and his health has been deteriorating in the last few months. Mother and sister check on him regularly. -he had a fall 4 weeks ago in September 2022-he came to emergency room after 5 days for?left lower extremity pain and swelling. Patient is disabled and mostly uses a wheelchair at home but occasionally uses walker. Left leg?anterior aspect of chavez has large abrasion that is healing.? X-ray of left foot and left tib-fib showed no acute fractures or findings.? Patient was diagnosed with injury of left lower extremity and wound of left lower extremity and nurse cleaned up wounds and applied bandage on them.? Patient was discharged home with a prescription for a prophylactic antibiotic to prevent any infection and a couple hydrocodone to help with pain. He was brought to emergency room on 11/17/2021 for altered mental status, shortness of breath., Oriented to person, not to place, not to time. During the hospitalization patient had a hypercapnic respiratory failure requiring BiPAP and with underlying COPD-he was placed on IV steroids and scheduled nebulizations Due to his significant alcohol history- he was placed on CIWA protocol, multivitamins, folate, and Precedex which used to calm him down. He was placed on antibiotics for cellulitis (left lower leg abrasions ) and admission blood cultures were growing gram-positive cocci-identification and sensitivities are pending. There is a imaging evidence of cirrhosis-however ammonia is 42. For atrial fibrillation patient is on anticoagulation with Lovenox; his BNP is elevated-however his echocardiogram showed normal function although with limited views Despite being on BiPAP-his mentation did not improve much-and his hypercapnia persisted with pH showing respiratory acidosis; goals of care discussion with family yesterday resulted in continue everything except CPR. Today morning patient ABG showed pH 7.24 and worsening PCO2 70-and with altered mental status due to CO2 narcosis-pulmonary critical care consulted for intubation. I have seen patient at bedside-he is extremely drowsy and does not respond to commands Patient's sister and mother were at bedside-after discussing with them the need for emergency intubation to protect airway and hypercapnic respiratory failure-proceeded with intubation. Post intubation patient is placed on fentanyl 25 MCG/hour and Versed 2 Mg/hour drip-and ABG showed 7.3 354/133/28 on CMV 450/50% FiO2/PEEP 8/rate 14 Review of Systems General: Reports: ROS unobtainable due to endotracheal tube, ROS unobtainable due to medical condition and ROS unobtainable due to mental status Medications/Allergies Home Medications Medication Instructions Recorded Confirmed Last Taken Type albuterol sulfate 90 mcg/actuation 2 puff inhalation QID PRN 07/14/20 11/18/22 Unknown History aerosol inhaler Shortness Of Breath budesonide-formoterol HFA 80 2 puff inhalation BID 07/14/20 11/18/22 Unknown History mcg-4.5 mcg/actuation aerosol inhaler cholecalciferol (vitamin D3) 50 2,000 unit PO DAILY 07/14/20 11/18/22 Unknown History mcg (2,000 unit) tablet (Vitamin D3) etodolac 400 mg tablet 400 mg PO BID PRN Pain 07/14/20 11/18/22 Unknown History gabapentin 100 mg capsule 200 mg PO TID 07/14/20 11/18/22 Unknown History pantoprazole 40 mg tablet,delayed 40 mg PO BID 07/14/20 11/18/22 Unknown History release (Protonix) rivaroxaban 20 mg tablet 20 mg PO QPM 07/14/20 11/18/22 Unknown History acamprosate 333 mg tablet,delayed 333 mg PO TID 11/18/22 11/18/22 Unknown History release fluticasone 100 mcg-salmeterol 50 1 inh inhalation BID 11/18/22 11/18/22 Unknown History mcg/dose blistr powdr for inhalation guaifenesin 400 mg tablet 400 mg PO Q4H PRN Congestion 11/18/22 11/18/22 Unknown History lactulose 10 gram/15 mL oral 30 g PO BID PRN Delirium 11/18/22 11/18/22 Unknown History solution melatonin 3 mg tablet 9 mg PO BEDTIME 11/18/22 11/18/22 Unknown History Allergies Allergy/AdvReac Type Severity Reaction Status Date / Time No Known Allergies Allergy Verified 11/18/22 08:53 Current Medications Generic Name Dose Route Start Last Admin Trade Name Freq PRN Reason Stop Dose Admin Albuterol/Ipratropium 3 ml 11/18/22 20:45 11/20/22 11:34 Ipratropium-Albuterol 3 Ml Neb INHALATION 3 ml Q4H.RESPIRATORY JOLYNN Administration Budesonide 0.5 mg 11/18/22 21:00 11/20/22 07:39 Budesonide 0.5 Mg/2 Ml Neb INHALATION 0.5 mg BID.RESPIRATORY JOLYNN Administration Collagenase 1 applic 11/19/22 11:00 11/20/22 11:47 Collagenase Oint 30 Gm TOPICAL 1 applic DAILY JOLYNN Administration Enoxaparin Sodium 50 mg 11/18/22 12:30 11/19/22 23:42 Enoxaparin 60 Mg/0.6 Ml Syringe SUBCUT 50 mg Q12H JOLYNN Administration Folic Acid 1 mg 11/18/22 09:00 11/20/22 10:21 Folic Acid 1 Mg Tablet PO Not Given DAILY JOLYNN Dexmedetomidine HCl 400 mcg/ 104 mls @ 0 mls/hr 11/17/22 22:17 11/20/22 11:47 Sodium Chloride IV 0 mcg/kg/hr .Q0M JOLYNN 0 mls/hr Titration Protocol Per Protocol Vancomycin HCl 750 mg/ Sodium 250 mls @ 250 mls/hr 11/18/22 18:00 11/19/22 23:31 Chloride IV Infused Q24H JOLYNN Infusion Clindamycin HCl/Dextrose 600 mg in 50 mls @ 100 mls/hr 11/18/22 09:00 11/20/22 11:47 Cleocin IV Infused Q8H JOLYNN Infusion Protocol Piperacillin Sod/Tazobactam 50 mls @ 12.5 mls/hr 11/18/22 08:00 11/20/22 11:47 Sod 3.375 gm/ Sodium Chloride IV 0 mls/hr Q8H JOLYNN Infusion Sodium Chloride 1,000 mls @ 50 mls/hr 11/19/22 07:15 11/20/22 04:28 Sodium Chloride 0.45% IV 50 mls/hr .Q20H JOLYNN Administration Midazolam HCl 100 mg/ Sodium 100 mls @ 0 mls/hr 11/20/22 10:45 11/20/22 11:46 Chloride IV 2 mg/hr .Q0M JOLYNN 2 mls/hr Administration Protocol Per Protocol Fentanyl 2,500 mcg/ Sodium 250 mls @ 0 mls/hr 11/20/22 10:45 11/20/22 11:46 Chloride IV 25 mcg/hr .Q0M JOLYNN 2.5 mls/hr Administration Protocol Per Protocol Lorazepam 2 mg 11/17/22 22:17 11/18/22 19:53 Lorazepam 2 Mg/Ml Inj 1 Ml IM 2 mg Q4H PRN Administration ALCOWD Protocol Lorazepam 2 mg 11/17/22 22:17 11/19/22 22:11 Lorazepam 2 Mg/Ml Inj 1 Ml IVP 2 mg PRN PRN Administration WITHDRAWAL Protocol Methylprednisolone Sodium Succinate 40 mg 11/20/22 07:00 11/20/22 06:43 Methylprednisolone Sod Succ 40 Mg/Ml Inj IVP 40 mg Q24H JOLYNN Administration Metoprolol Tartrate 25 mg 11/18/22 09:00 11/20/22 10:21 Metoprolol Tartrate 50 Mg Tablet PO Not Given BID JOLYNN Morphine Sulfate 2 mg 11/20/22 00:36 11/20/22 00:42 Morphine 4 Mg/Ml Sdv 1 Ml IVP 2 mg Q4H PRN Administration SEVERE PAIN Multivitamins Therapeutic 1 tab 11/18/22 09:00 11/20/22 10:21 Multivitamin Therapeutic Tablet PO Not Given DAILY [facility] Pantoprazole Sodium 40 mg 11/18/22 09:00 11/20/22 10:[address] 40 Mg Tablet PO Not Given BID JOLYNN Rocuronium [place] 50 mg 11/20/22 10:33 11/20/22 10:46 Rocuronium 10 Mg/Ml Inj 5ml IVP 50 mg Q1H PRN Administration SHORTNESS OF BREATH Thiamine Mononitrate 100 mg 11/18/22 09:00 11/20/22 10:21 Thiamine 100 Mg Tablet PO Not Given DAILY JOLYNN Thiamine Mononitrate 100 mg 11/18/22 09:00 11/20/22 10:21 Thiamine 100 Mg Tablet PO Not Given DAILY JOLYNN PFSH Acute PFSH: Medical History Alcohol dependence Atrial flutter COPD (chronic obstructive pulmonary disease) Essential (primary) hypertension Liver disease Post traumatic stress disorder (PTSD) Surgical History No pertinent past surgical history Family History Mother CAD (coronary artery disease) Other Colon polyp Social History Smoking and tobacco status: never smoked Alcohol intake: current Substance/Drug Use: never Vitals/I&O/Wt Last Vital Signs Temp 99.5 F 11/20/22 08:15 Pulse 58 L 11/20/22 11:37 Resp 14 11/20/22 11:35 BP 148/89 11/20/22 10:15 Pulse Ox 100 11/20/22 11:35 O2 Del Method 11/20/22 11:35 O2 Flow Rate 2 11/18/22 20:59 FiO2 50 11/20/22 11:35 11/19/22 11/20/22 11/20/22 22:59 06:59 14:59 Intake Total 112.594 / 868.534 2461.416 / 1699.736 142.032 / 142.032 Output Total 425 / 425 325 / 750 Balance -312.406 / -454.882 2117.416 / 949.736 142.032 / 142.032 Weight last 48 hrs Weight 128 lb Physical Exam Narrative: PHYSICAL EXAM: General: lying in bed, sedated and intubated. HEENT:NCAT, PERRLA, EOMI Neck: Supple Lungs: Reduced breath sounds bilaterally Heart: s1/s2, RRR Abd: soft, NT, ND, BS + Normoactive Extremities: No edema TERRAZZO FINISHER: sedated and limited TERRAZZO FINISHER exam possible. SKIN: Extremities show left lower extremity with old appearing black eschars, and erythema surrounding.? Back several decub's noted, high iliac area Urinary Catheter Management: Carmichael: Cath Placed During This Visit: yes Reason for Continuing Indwelling Catheter: Accurate Measurement of Urinary Output in Critically Ill Patients Urinary Catheter Date of Insertion: 11/17/22 Urinary Catheter Time of Insertion: 22:19 Data 11/20/22 04:05 11/20/22 04:05 Other Labs: Radiology Impressions Chest/Abdomen/Pelvis CT 11/17/22 18:59 IMPRESSION: 1. No pulmonary embolus. The 2. Centrilobular emphysema. Mild diffuse peribronchial thickening. No consolidation. IMPRESSION: 1. Distended urinary bladder. Urinary retention should be considered in the adequate clinical setting. Otherwise no acute intra-abdominal or intrapelvic pathology. 2. Cirrhotic liver. Foot CT 11/17/22 21:59 IMPRESSION: 1. No evidence of fracture, focal bone destruction, or soft tissue gas to suggest necrotizing fasciitis. 2. Mid to distal foot subcutaneous edema/cellulitis. If there is concern for early osteomyelitis, an MRI would be more sensitive. 3. Chronic findings above with vascular calcifications and DJD. Lower Extremity CT 11/17/22 21:59 IMPRESSION: 1. No evidence of fracture, focal bone destruction, or soft tissue gas to suggest necrotizing fasciitis. 2. Diffuse lower leg subcutaneous edema/cellulitis with a few chavez skin ulcerations. No definite or sizable abscess on this unenhanced exam. If there is concern for early osteomyelitis, an MRI would be more sensitive. 3. Chronic findings above with vascular calcifications and DJD. Head CT 11/18/22 12:47 IMPRESSION: No acute intracranial abnormality. Chest X-Ray 11/20/22 11:18 IMPRESSION: No evidence of focal consolidation. COPD changes. Laboratory Results WBC 18.1 10^3/uL (4.0-10.0) H 11/20/22 04:05 RBC 3.26 10^6/uL (4.1-5.3) L 11/20/22 04:05 Hgb 11.1 g/dL (11.7-16.6) L 11/20/22 04:05 Hct 36.2 % (42.0-52.0) L 11/20/22 04:05 MCV 111.0 fl (80-94) H 11/20/22 04:05 MCH 34.0 pg (28.0-34.0) 11/20/22 04:05 MCHC 30.7 g/dL (30.0-36.0) 11/20/22 04:05 RDW 12.9 % (12.1-15.1) 11/20/22 04:05 Plt Count 96 10^3/cmm (130-400) L 11/20/22 04:05 MPV 12.3 fL (7.4-10.4) H 11/20/22 04:05 Neut % (Auto) 86.4 % 11/20/22 04:05 Lymph % (Auto) 4.4 % 11/20/22 04:05 [place] % (Auto) 7.8 % 11/20/22 04:05 Eos % (Auto) 0.0 % 11/20/22 04:05 Baso % (Auto) 0.2 % 11/20/22 04:05 Neut # (Auto) 15.60 10^3/uL (1.8-7.7) H 11/20/22 04:05 Lymph # (Auto) 0.8 10^3/uL (0.8-4.8) 11/20/22 04:05 [place] # (Auto) 1.4 10^3/uL (0.2-0.9) H 11/20/22 04:05 Eos # (Auto) 0.0 10^3/uL (0.0-0.8) 11/20/22 04:05 Baso # (Auto) 0.0 10^3/uL (0.0-0.1) 11/20/22 04:05 Nucleated RBC % (auto) 0 % 11/20/22 04:05 Total Counted 100 (0-100) 11/17/22 17:05 Atypical Lymphs % 3.0 % (0-5) 11/17/22 17:05 Absolute Neutrophils 27.8 10^3/cmm (1.4-6.5) H 11/17/22 17:05 Segmented Neutrophils 67 % 11/17/22 17:05 Abs Segm Neuts (Man) 20.4 10/cmm (1.6-7.1) H 11/17/22 17:05 Band Neutrophils 24.0 % 11/17/22 17:05 Abs Band Neuts (Man) 7.3 10^3/cmm (0.0-1.2) H 11/17/22 17:05 Absolute Lymphocytes 2.1 10^3/cmm (1.2-3.4) 11/17/22 17:05 Lymphocytes (Manual) 4 % 11/17/22 17:05 Monocytes (Manual) 2.0 % 11/17/22 17:05 Absolute Monocytes 0.6 10^3/cmm (0.1-0.6) 11/17/22 17:05 Eosinophils (Manual) 0 % 11/17/22 17:05 Absolute Eosinophils 0.0 10^3/cmm (0.0-0.7) 11/17/22 17:05 Basophils (Manual) 0.0 % 11/17/22 17:05 Absolute Basophils 0.0 10^3/cmm (0.0-0.2) 11/17/22 17:05 Nucleated RBCs # 0.0 /100WBC 11/20/22 04:05 Platelet Estimate Normal (Normal) 11/17/22 17:05 Giant Platelets 1+ H 11/17/22 17:05 Dimorphic RBCs 4+ H 11/17/22 17:05 Polychromasia 3+ H 11/17/22 17:05 Hypochromasia 1+ H 11/17/22 17:05 Poikilocytosis 4+ H 11/17/22 17:05 Anisocytosis 4+ H 11/17/22 17:05 Microcytosis 4+ H 11/17/22 17:05 Macrocytosis 4+ H 11/17/22 17:05 Spherocytes 4+ 11/17/22 17:05 Tear Drop Cells 3+ 11/17/22 17:05 Phuong Cells 4+ H 11/17/22 17:05 Acanthocytes (Spur) 1+ H 11/17/22 17:05 Schistocytes 3+ H 11/17/22 17:05 ESR 13 mm/hr (0-10) H 11/17/22 22:16 PT 12.50 SECONDS (12.1-14.9) 11/17/22 22:16 INR 0.90 (0.8-1.2) 11/17/22 22:16 APTT 28.4 SECONDS (23.9-36.7) 11/17/22 22:16 Fibrinogen 539 mg/dL (174-498) H 11/17/22 22:16 Fibrin Degrad Products Pos, 10-40 ug/mL (NEG) H 11/17/22 22:16 D-Dimer 3.46 ug/mIFEU (0-0.59) H 11/17/22 22:16 Specimen Type Arterial 11/20/22 13:02 Sample Site Radial, left 11/20/22 13:02 ABG pH 7.33 (7.35-7.45) L 11/20/22 13:02 ABG pCO2 53.3 mmHg (35-45) H 11/20/22 13:02 ABG pO2 133.0 mmHg (80.0-100.0) H 11/20/22 13:02 ABG HCO3 28.2 mmol/L (22-26) H 11/20/22 13:02 ABG O2 Saturation 99.4 11/20/22 13:02 ABG Base Excess 1.5 mmol/L (-2.0-2.0) 11/20/22 13:02 Catalino Test Pos 11/20/22 13:02 A-a O2 Gradient 20.6 mmHg (5-10) H 11/20/22 13:02 Hematocrit 35.8 % (42-52) L 11/20/22 13:02 Hgb O2 Saturation 98.1 % (95-100) 11/20/22 13:02 Carboxyhemoglobin < 1.0 %THgb (0.4-20.1) 11/20/22 13:02 Methemoglobin 0.5 % (0.4-1.5) 11/20/22 13:02 Total Hemoglobin 11.7 g/dL (14-18) L 11/20/22 13:02 Sodium 151.0 mmol/L (131-143) H 11/20/22 13:02 Potassium 4.2 mmol/L (3.5-5.0) 11/20/22 13:02 Glucose 149.0 mg/dL (70-115) H 11/20/22 13:02 Ionized Calcium 1.3 mmol/L (1.1-1.4) 11/20/22 13:02 O2 Delivery Device Vent 11/20/22 13:02 O2 Liters/Min 3.0 % 11/17/22 16:58 FiO2 50.0 % 11/20/22 13:02 Tidal Volume 0.45 11/20/22 13:02 PEEP 8.0 cmH20 11/20/22 13:02 Clinical Informatics Physician ID Cak 11/20/22 13:02 Sodium 148 mmol/L (136-145) H 11/20/22 04:05 Potassium 4.4 mmol/L (3.5-5.1) 11/20/22 04:05 Chloride 111 mmol/L (98-107) H 11/20/22 04:05 Carbon Dioxide 28 mmol/L (22-29) 11/20/22 04:05 Anion Gap 13.4 (5-19) 11/20/22 04:05 BUN 49 mg/dL (8-23) H 11/20/22 04:05 Creatinine 0.8 mg/dL (0.7-1.2) 11/20/22 04:05 GFR Calculation 98.3 mL/min (90-130) 11/20/22 04:05 Glucose 129 mg/dL (65-115) H 11/20/22 04:05 Estimat Average Glucose 108 11/17/22 17:05 Hemoglobin A1c 5.4 % (4.0-6.0) 11/17/22 17:05 Calculated Osmolality 321 mOsm/kg (285-295) H 11/20/22 04:05 Lactic Acid 1.3 mmol/L (0.5-2.2) 11/17/22 17:05 Calcium 8.7 mg/dL (8.5-10.5) 11/20/22 04:05 Phosphorus 4.6 mg/dL (2.5-4.5) H 11/17/22 22:16 Magnesium 2.4 mg/dL (1.7-2.3) H 11/19/22 03:03 Total Bilirubin 0.3 mg/dL (0.15-1.2) 11/20/22 04:05 AST 15 U/L (0-40) 11/20/22 04:05 ALT 13 U/L (0-41) 11/20/22 04:05 Alkaline Phosphatase 97 U/L (40-130) 11/20/22 04:05 Ammonia 55 umol/L (16-60) 11/20/22 12:33 Creatine Kinase 69 U/L (39-308) 11/17/22 22:16 Troponin T Baseline 19 ng/L (0-15) H 11/17/22 22:16 Troponin T 120 Minute 18.39 ng/L (0-15) H 11/17/22 23:46 Delta Troponin T -0.61 ABS# (0-10) L 11/17/22 23:46 Troponin T Hi Sens 6Hr 16.18 ng/L (0-15) H 11/18/22 04:00 Troponin T Hi Sens 6Hr Delta -2.82 ng/L (0-12) L 11/18/22 04:00 C-Reactive Protein 101.3 mg/L (0.0-4.9) H 11/17/22 17:05 NT-Pro-B Natriuret Pep 2405 pg/mL (0-125) H 11/18/22 04:00 Total Protein 6.8 g/dL (6.6-8.7) 11/20/22 04:05 Albumin 3.0 g/dL (3.5-5.2) L 11/20/22 04:05 Globulin 3.8 g/dL (1.3-4.6) 11/20/22 04:05 Lipase 9 U/L (13-60) L 11/17/22 22:16 Vitamin B12 896 pg/mL (232-1245) 11/17/22 22:16 Folate 8.6 ng/mL (4.5-32.2) 11/17/22 17:05 Procalcitonin 1.59 ng/mL (0-0.5) H 11/17/22 17:05 TSH 0.30 uIU/mL (0.27-4.20) 11/17/22 22:16 Random Cortisol 29.34 ug/dL (2.47-19.5) H 11/17/22 17:05 Random Cortisol Cancelled 11/17/22 17:05 Urine Color Yellow (Yellow) 11/17/22 22:16 Urine Appearance Clear (CLEAR) 11/17/22 22:16 Urine pH 5 (5-7) 11/17/22 22:16 Ur Specific [place] 1.015 (1.005-1.030) 11/17/22 22:16 Urine Protein Neg (Negative) 11/17/22 22:16 Urine Glucose (UA) Norm (Normal) 11/17/22 22:16 Urine Ketones Negative (Negative) 11/17/22 22:16 Urine Blood Neg (Negative) 11/17/22 22:16 Urine Nitrate Negative (Negative) 11/17/22 22:16 Urine Bilirubin 2+ (Negative) H 11/17/22 22:16 Urine Urobilinogen Norm mg/dL (Negative) 11/17/22 22:16 Ur Leukocyte Esterase Negative (Negative) 11/17/22 22:16 Urine Opiates Screen Negative ng/mL (Negative) 11/17/22 22:16 Ur Barbiturates Screen Negative ng/mL (Negative) 11/17/22 22:16 Ur Phencyclidine Scrn Negative ng/mL (Negative) 11/17/22 22:16 Ur Amphetamines Screen Negative ng/mL (Negative) 11/17/22 22:16 U Benzodiazepines Scrn Negative ng/mL (Negative) 11/17/22 22:16 Urine Cocaine Screen Negative ng/mL (Negative) 11/17/22 22:16 U Marijuana (THC) Screen Negative ng/mL (Negative) 11/17/22 22:16 Ethyl Alcohol < 10 mg/dL (0-10) 11/17/22 22:16 Hepatitis A IgM Ab Non-reactive (Nonreactive) 11/17/22 17:05 Hep Bs Antigen Non-reactive (Nonreactive) 11/17/22 17:05 Hep B Core IgM Ab Non-reactive (Nonreactive) 11/17/22 17:05 Hepatitis C Antibody Non-reactive (Nonreactive) 11/17/22 17:05 HIV 1&2 Ab & HIV 1 Ag Non-reactive (Non-Reactiv) 11/17/22 17:05 HIV 1&2 Antibody Non-reactive (Non-Reactiv) 11/17/22 17:05 Influenza Type A Ag negative (Negative) 11/17/22 17:17 Influenza Type B Ag negative (Negative) 11/17/22 17:17 SARS-CoV-2 Ag (Rapid) Negative (Negative) 11/17/22 17:17 Micro: Microbiology 11/20/22 04:00 Blood Culture - Preliminary Blood SPECIMEN COLLECTED 11/20/22 04:05 Blood Culture - Preliminary Blood SPECIMEN COLLECTED 11/17/22 22:16 Urine Culture - Preliminary Urine Catheterized A&P Assessment and plan (1) Altered mental status: (2) Liver disease: (3) Goals of care, counseling/discussion: (4) Protein calorie malnutrition: (5) Physical deconditioning: (6) Alcohol abuse with withdrawal: (7) Sepsis: (8) COPD with acute exacerbation: (9) Hypercapnic respiratory failure: (10) CO2 narcosis: Plan #Altered mental status-multifactorial in patient with underlying COPD/cirrhosis/sepsis/hypernatremia/alcohol withdrawal -CO2 narcosis-intubated 11/20/2022 to protect airway and for hypercapnia-on mechanical ventilator-we will follow-up with ABGs to adjust settings -Hypernatremia 148-we will start free water through PEG tube -CT head 11/18/2022 no acute abnormalities -Patient on CIWA protocol-multivitamins/folic acid/thiamine-start on low-dose Versed drip and monitor for signs of withdrawal -Ammonia 55 -Sepsis encephalopathy-currently on antibiotics and will follow up with cultures to adjust antibiotics -We will start her on low-dose fentanyl and low-dose Versed for sedation #COPD exacerbation -ABG showing hypercapnia-intubated -Continue scheduled nebulizations and IV steroids and taper based on clinical response #Sepsis-likely bacteremia cellulitis from left lower leg from previous trauma -Surgery is on board and is started on chemical debridement -Blood cultures on admission showed 2 out of 4 bottles gram-positive cocci-identification and sensitivity pending; repeat blood cultures sent on 11/20/2021 -Patient is on vancomycin, clindamycin, Zosyn-I am going to discontinue clindamycin -Monitor fever curve, WBC counts of all cultures to adjust antibiotics-patient currently able to maintain blood pressure without pressors #Liver cirrhosis Monitor LFTs #Worsening BUN and hypernatremia -Likely secondary to dehydration -We will start free water -Monitor closely renal functions #Severe protein energy malnutrition -We will start tube feeding Glucerna #Goals of care discussion -Discussed with patient's sister and his mother at bedside-they wanted us to let them know if there is no improvement as they do not want prolonged intubation for him. -I have mentioned that we just intubated and there were several reasons for his altered mental status-including hypercapnia/hyponatremia/sepsis and our goal is to treat reversible conditions and see how patient responds. If he does not improve in the next 48 to 72 hours-we will update family about his prognosis and they can make decisions at that time. Both sister and mother agreed with the plan ICU CHECKLIST: Problem list updated Verbal orders reviewed and signed Analgesia: Fentanyl Glycemic Control: N/A Nutrition: We will start Glucerna at 20 cc/hour Restraint Renewal (within 24 hrs): Yes Ulcer Prophylaxis: Yes PPI Chemical Thromboprophylaxis: Prophylaxis: Lovenox Mechanical Thromboprophylaxis: SCD Need for Central line: N/A Need for Carmichael catheter: Yes Critical Care Time (No Overlap): 75 min Consult Attestations Medical Necessity Statement: Hypercapnic respiratory failure-requiring mechanical intubation-requires at least 24 to 48 hours with close ICU monitoring Time Spent in Patient Care: Greater than 35 minutes (>than 50% of time spent in counselling and/or direct pt care on unit). Critical Care Time: The high probability of a clinically significant, sudden or life threatening deterioration of the patient's [neurological/pulmonary/infectious/renal] system(s) which requires the highest level of physician preparedness to intervene urgently. I managed/supervised life or organ supporting interventions that required frequent physician assessment. I devoted my full attention in the ICU to the direct care of this patient for the period of time indicated above. Time I spent with family or surrogate(s) is included only if the patient was incapable of providing necessary information or participating in decision making. Time devoted to teaching and to any procedures I billed separately is not included. Services Provided: Telemetry review Mechanical Ventilation Hemodynamic interpretation, assessment and management Review and interpretation of CXR Review and interpretation of lab values Review and interpretation of microbiologic data and culture results Review of medications and administration Review and interpretation of Nutrition requirements and management Discussion of management with other consultants and services Clinical update to family members [x] Patient assessment, examination and intervention [x] Documentation [x] Medication orders and management required my full and direct attention, intervention and personal management. The critical care time is as shown. This time is in addition to time spent performing any reported procedures but includes the following: Critical Care Time (min): 75 Coding Level of Care Code New Pt Acute Code for Chg Fwd Patient Type New History Comprehensive Exam Comprehensive Medical Decision Making High Complexity Diagnoses Altered mental status R41.82 Liver disease K76.9 Goals of care, counseling/discussion Z71.89 Protein calorie malnutrition E46 Physical deconditioning R53.81 Alcohol abuse with withdrawal F10.139 Sepsis A41.9 COPD with acute exacerbation J44.1 Hypercapnic respiratory failure J96.92 CO2 narcosis R06.89 Time Spent (min) 75
--- NOTE | 2022-11-20 12:14 | PM.ACPR ---
Procedure/Consent Time out: Time Out Performed: Yes Consent: Consent for Procedure: Emergency procedure and Risks & Benefits reviewed Procedure Narrative: Endotracheal Intubation Procedure Note Indication for endotracheal intubation: Altered mental status and hypercapnic respiratory failure Time of the procedure: 1029 Consent: The patient was in immediate danger, and required the procedure emergently. Sedation: Etomidate 12 Mg Paralytic: Rocuronium 50 mg Equipment: Glidoscope blade 3 View: Grade 1 there was blood noted in the oropharynx around vocal cords Cricoid Pressure: No Number of attempts: 1 ETT location confirmed by direct visulization, ET fogging, Capnometer, bilateral breath sounds, Chest x ray Kin Datar[employer] FCCP Pulm/Critical Care Medicine Acute Procedures Epistaxis Control: Time out performed: Yes
[2022-11-20] MEDS: enoxaparin 60 mg/0.6 mL Syringe 50 MG SUBCUT (12:55)
[2022-11-20 13:13] LABS: ABG PCO2 53.3 mmHg (35-45); ABG PH Result 7.33 (7.35-7.45); Alveolar-Arterial Oxygen Gradi 20.6 mmHg (5-10); Arterial Blood Gas Hematocrit 35.8 % (42-52); Base Excess ABG 1.5 mmol/L (-2.0-2.0); Blood Gas Allen Test Pos; Blood Gas Operator Identificat CAK; Blood Gas Sample Site Radial, left; Blood Gas Sample Type Arterial; Blood Gas Tidal Volume 0.45; Carboxyhemoglobin < 1.0 %THgb (0.4-20.1); HCO3 ABG 28.2 mmol/L (22-26); HGB O2 Sat 98.1 % (95-100); Ionized Calcium Level - ABG 1.3 mmol/L (1.1-1.4); Methemoglobin 0.5 % (0.4-1.5); Oxygen Device VENT; Oxygen Saturation ABG 99.4; Potassium Level - ABG 4.2 mmol/L (3.5-5.0); Total Hemoglobin 11.7 g/dL (14-18)
[2022-11-20 13:15] LABS: Ammonia 55 umol/L (16-60)
--- NOTE | 2022-11-20 14:49 | XRR_ITS ---
PROCEDURE INFORMATION: Exam: XR Chest Exam date and time: 11/20/2022 2:54 PM Age: 62 years old Clinical indication: Device placement; Ng tube; Additional info: Ng tube placement TECHNIQUE: Imaging protocol: Radiologic exam of the chest. Views: 1 view. COMPARISON: CR (CHEST, ) 11/20/2022 11:24 AM FINDINGS: Tubes, catheters and devices: Endotracheal catheter remains in good position a few cm above the level of the lashon. A nasogastric tube is seen, with tip of the catheter at the expected level of the proximal stomach distal to the GE junction within the upper left abdomen. Lungs: Suggestion of underlying COPD changes. Pleural spaces: Unremarkable. No pleural effusion. No pneumothorax. Heart/Mediastinum: Unremarkable. No cardiomegaly. Bones/joints: Unremarkable. Other findings: No significant change otherwise with exam earlier same date. XR/XR chest 1V portable [id number] IMPRESSION: Nasogastric tube is seen with tip of the catheter at the expected level of the proximal stomach distal to the GE junction within the upper medial left abdomen.
--- NOTE | 2022-11-20 15:36 | P.PN_ITS ---
Subjective Subjective: Patient seen this morning. He is quite lethargic and unable to respond or follow commands. He is on BiPAP. Sitting up in bed but hunched over with his mouth open. He does not really respond but moans. Gas this morning showed 7.2/70. Vitals/I&O/Wt Last Vital Signs Temp 99.5 F 11/20/22 08:15 Pulse 87 11/20/22 12:45 Resp 14 11/20/22 13:33 BP 130/81 11/20/22 12:45 Pulse Ox 100 11/20/22 13:33 O2 Del Method 11/20/22 11:35 O2 Flow Rate 2 11/18/22 20:59 FiO2 40 11/20/22 13:33 11/20/22 11/20/22 11/20/22 06:59 14:59 22:59 Intake Total 1414.416 / 1699.736 148.165 / 148.165 Output Total 325 / 750 Balance 1089.416 / 949.736 148.165 / 148.165 Weight last 48 hrs Weight 58.06 kg Physical Exam Narrative: PHYSICAL EXAM: General: Sitting up in bed on BiPAP hunched over with mouth open. Does not respond or follow commands. HEENT:NCAT, PERRLA, EOMI Neck: Supple Lungs: Reduced breath sounds bilaterally, gross rhonchi present. Heart: s1/s2, RRR Abd: soft, NT, ND, BS + Normoactive Extremities: No edema SKIN: Extremities show left lower extremity with old appearing black eschars, and erythema surrounding.? Back several decub's noted, high iliac area Urinary Catheter Management: Carmichael: Cath Placed During This Visit: yes Reason for Continuing Indwelling Catheter: Accurate Measurement of Urinary Output in Critically Ill Patients Urinary Catheter Date of Insertion: 11/17/22 Urinary Catheter Time of Insertion: 22:19 Data 11/20/22 04:05 11/20/22 04:05 Micro: Microbiology 11/17/22 22:16 Urine Culture - Final Urine Catheterized 11/20/22 04:00 Blood Culture - Preliminary Blood SPECIMEN COLLECTED 11/20/22 04:05 Blood Culture - Preliminary Blood SPECIMEN COLLECTED A&P Assessment and plan (1) CO2 narcosis: (2) Hypercapnic respiratory failure: (3) Altered mental status: (4) Atrial flutter: (5) Acute encephalopathy: (6) Goals of care, counseling/discussion: (7) Protein calorie malnutrition: (8) Alcohol abuse with withdrawal: (9) COPD with acute exacerbation: (10) Acute respiratory failure with hypoxemia: (11) Sepsis: (12) Cellulitis: (13) Tachycardia: Plan #Vent dependent respiratory failure #Altered mental status #History of liver disease #COPD #Liver cirrhosis #Hypernatremia #Alcohol withdrawal #Sepsis secondary to cellulitis #Worsening BUN and hypernatremia #Severe protein calorie malnutrition ? CO2 narcosis?. Consult pulmonology. Gas not improving on AVAPS. Decision made to intubate. ? Patient will be intubated today. ? Head CT did not show any acute abnormalities ? Ammonia level is normal ? Patient was on CIWA protocol. Continue multivitamins, folic acid, thiamine ? Continue fentanyl and Versed for sedation ? Continue DuoNeb scheduled, IV steroids ? General surgery is on board and started on debridement. ? Blood culture positive for gram-positive cocci. On defecation and sensitivities pending at this time. ? Continue vancomycin, Zosyn. Clindamycin was given for toxin suppression. It has been discontinued now. ? Patient dehydrated. Continue free water flushes through OG tube. ? Continue tube feeds with Glucerna ? I discussed with patient's sister over the phone and she agreed with intubati on. She only wanted us to wait so she can, and pray for him and see him while he is awake. I could not get a hold of the mother with the brother over the phone. ? Updated RN. DVT prophylaxis: SCDs, Lovenox Attestations Medical Necessity Statement*: Needs continued hospital stay secondary to alcohol withdrawal requiring Precedex, sepsis, bacteremia requiring IV antibiotics, multiorgan dysfunction Critical Care Time: The high probability of a clinically significant, sudden or life threatening deterioration of the patient's [pulmonary, electrolyte, metabolic secondary alcoholism and withdrawal, neurologic, hepatic] system(s) required my full and direct attention, intervention and personal management. The critical care time is as shown. This time is in addition to time spent performing any reported procedures but includes the following: [x] Data and vital sign review and interpretation [x] Patient assessment, examination and intervention [x] Documentation [x] Medication orders and management Critical Care Time (min): 32 Coding Level of Care Code Acute Code for Chg Fwd Diagnoses CO2 narcosis R06.89 Hypercapnic respiratory failure J96.92 Altered mental status R41.82 Atrial flutter I48.92 Acute encephalopathy G93.40 Goals of care, counseling/discussion Z71.89 Protein calorie malnutrition E46 Alcohol abuse with withdrawal F10.139 COPD with acute exacerbation J44.1 Acute respiratory failure with hypoxemia J96.01 Sepsis A41.9 Cellulitis L03.90 Tachycardia R00.0
[2022-11-20] MEDS: vancomycin 750 MG in sodium chloride 0.9% 250 ML 250 MG IV (16:59)
[2022-11-20] MEDS: metoprolol tartrate 50 mg Tablet 25 MG PO (17:05)
[2022-11-20] MEDS: pantoprazole 40 mg SDV IVP (17:07)
--- NOTE | 2022-11-20 17:35 | PM.PN ---
Subjective Subjective: Patient seen and examined. Violet currently working well to chemically debride left lower extremity eschars Vitals/I&O/Wt Last Vital Signs Temp 99.5 F 11/20/22 08:15 Pulse 79 11/20/22 15:37 Resp 14 11/20/22 16:38 BP 130/81 11/20/22 12:45 Pulse Ox 100 11/20/22 16:38 O2 Del Method 11/20/22 15:33 O2 Flow Rate 2 11/18/22 20:59 FiO2 40 11/20/22 16:38 11/20/22 11/20/22 11/20/22 06:59 14:59 22:59 Intake Total 1414.416 / 1699.736 148.165 / 148.165 0 / 148.165 Output Total 325 / 750 Balance 1089.416 / 949.736 148.165 / 148.165 0 / 148.165 Weight last 48 hrs Weight 128 lb Physical Exam Narrative: General: Patient unresponsive and about to be intubated Extremities: Left lower extremity with 2 decubitus ulcers with overlying eschars. Violet appears to be working well for debridement. No cellulitis Urinary Catheter Management: Carmichael: Cath Placed During This Visit: yes Reason for Continuing Indwelling Catheter: Accurate Measurement of Urinary Output in Critically Ill Patients Urinary Catheter Date of Insertion: 11/17/22 Urinary Catheter Time of Insertion: 22:19 Data 11/20/22 04:05 11/20/22 04:05 Micro: Microbiology 11/20/22 11:35 Gram Stain - Final Sputum - Endotracheal Tube Aspirate 11/17/22 22:16 Urine Culture - Final Urine Catheterized 11/20/22 04:00 Blood Culture - Preliminary Blood SPECIMEN COLLECTED 11/20/22 04:05 Blood Culture - Preliminary Blood SPECIMEN COLLECTED A&P Assessment and plan (1) Unstageable decubitus ulcer: Plan Santyl and sterile dressings to the left lower extremity decubitus ulcers once daily Medical management per hospitalist Will follow Attestations Medical Necessity Statement*: Patient requires multiple more nights in the hospital for intensive care related to alcohol withdrawal Coding Level of Care Code Acute Code for Chg Fwd Diagnoses Unstageable decubitus ulcer L89.95
--- NOTE | 2022-11-20 18:30 | PC.NURSE ---
Shift SUmmary: Patient was intubated at beginning of shift due to hypercapnea respiratory failure and altered mental status. Blood cultures positive, 4/4 bottles positive for mrsa. Otherwise uneventful shift.
--- NOTE | 2022-11-20 19:15 | PC.NURSE ---
MAR Upon assessment of patient, fentanyl administering at 75 mcg/hr and versed was administering at 6 mg/hr while MAR displayed 25 mcg/hr and 3 mg/hr respectively. MAR updated to show actual administration rates.
[2022-11-20] MEDS: propofol 1,000 MG/100 ML INJ 1.74 MG IV (19:40)
[2022-11-21] VITALS (107 sets, daily range): BP systolic 94–154; BP diastolic 67–103; PULSE 65–99; RESP 12–18; TEMP 36.2–36.9; O2SAT 96–100; BMI 18.8
[2022-11-21] MEDS: piperacillin-tazobactam 3.375 GM in sodium chloride 0.9% (plus) 50 ML IV ×3 (00:15→15:57)
[2022-11-21] MEDS: chlorhexidine gluconate 4% Btl 118 mL 1 APPLIC TOPICAL (00:16)
[2022-11-21] MEDS: enoxaparin 60 mg/0.6 mL Syringe 50 MG SUBCUT ×2 (01:19→12:09)
[2022-11-21] MEDS: sodium chloride 0.45% 1,000 ML 50 ML IV ×2 (01:48→19:27)
[2022-11-21] MEDS: ipratropium-albuterol 3 mL Neb INHALATION ×6 (03:12→23:32)
[2022-11-21] MEDS: pantoprazole 40 mg SDV IVP ×2 (04:38→16:48)
[2022-11-21 06:25] LABS: ABG PCO2 44.6 mmHg (35-45); ABG PH Result 7.42 (7.35-7.45); Arterial Blood Gas Hematocrit 33.5 % (42-52); Base Excess ABG 3.8 mmol/L (-2.0-2.0); Blood Gas Allen Test Pos; Blood Gas Sample Site Radial, right; Blood Gas Sample Type Arterial; Blood Gas Tidal Volume 0.45; HCO3 ABG 28.9 mmol/L (22-26); Oxygen Device VENT
[2022-11-21 06:44] LABS: Basophils % 0.1 %; Hematocrit 36.5 % (42.0-52.0); Hemoglobin 11.3 g/dL (11.7-16.6); Lymphocytes # 0.9 10^3/uL (0.8-4.8); Lymphocytes % 9.9 %; Mean Corpuscular Hemoglobin 33.8 pg (28.0-34.0); Mean Corpuscular Volume 109.3 fl (80-94); Mean Platelet Volume 12.1 fL (7.4-10.4); Monocytes % 11.5 %; Neutrophils # 6.98 10^3/uL (1.8-7.7); Neutrophils % 77.3 %; Nucleated Red Blood Cells % 0 %; Platelet Count 84 10^3/cmm (130-400); Red Blood Count 3.34 10^6/uL (4.1-5.3); Red Cell Distribution Width 12.9 % (12.1-15.1)
[2022-11-21 07:23] LABS: Alanine Aminotransferase 9 U/L (0-41); Albumin Level 2.7 g/dL (3.5-5.2); Alkaline Phosphatase 78 U/L (40-130); Anion Gap 11.5 (5-19); Aspartate Amino Transferase 10 U/L (0-40); Blood Urea Nitrogen 47 mg/dL (8-23); Calcium 8.7 mg/dL (8.5-10.5); Carbon Dioxide 28 mmol/L (22-29); Chloride 111 mmol/L (98-107); Globulin 3.9 g/dL (1.3-4.6); Glomerular Filtration Rate 114.6 mL/min (90-130); Glucose 99 mg/dL (65-115); Osmolality Calculated 316 mOsm/kg (285-295); Potassium 3.5 mmol/L (3.5-5.1); Sodium 147 mmol/L (136-145); Total Bilirubin 0.5 mg/dL (0.15-1.2); Total Protein 6.6 g/dL (6.6-8.7)
[2022-11-21] MEDS: multivitamin therapeutic Tablet 1 TAB PO (08:41)
[2022-11-21] MEDS: thiamine 100 mg Tablet PO (08:41)
[2022-11-21] MEDS: folic acid 1 mg Tablet PO (08:41)
[2022-11-21] MEDS: collagenase oint 30 gm 1 APPLIC TOPICAL (08:42)
[2022-11-21] MEDS: budesonide 0.5 mg/2 mL Neb INHALATION ×2 (08:43→19:20)
--- NOTE | 2022-11-21 09:13 | XRR_ITS ---
PROCEDURE INFORMATION: Exam: XR Chest Exam date and time: 11/21/2022 12:21 PM Age: 62 years old Clinical indication: Shortness of breath; Additional info: Pneumonia TECHNIQUE: Imaging protocol: Radiologic exam of the chest. Views: 1 view. COMPARISON: CR (CHEST, ) 11/20/2022 2:54 PM FINDINGS: Tubes, catheters and devices: Distal aspect of the G-tube is positioned in the left upper quadrant abdomen in the expected location of the stomach. Distal aspect of the ET tube is obscured by overlying wires however is positioned approximately 4.5 cm superior to the lashon. Lungs: COPD morphology of the chest with emphysematous changes, similar to the prior study. No focal consolidation. Pleural spaces: Unremarkable. No pleural effusion. No pneumothorax. Heart/Mediastinum: Unremarkable. No cardiomegaly. Bones/joints: Unremarkable. XR/XR chest 1V portable [id number] IMPRESSION: There are emphysematous changes in the lungs, similar to the prior study. No evidence for acute cardiopulmonary disease.
[2022-11-21] MEDS: magnesium sulfate premix 2 GM/50 ML PIGGYBACK IV (09:49)
--- NOTE | 2022-11-21 11:14 | PM.PN ---
Vitals/I&O/Wt Last Vital Signs Temp 97.1 F L 11/21/22 07:45 Pulse 85 11/21/22 10:45 Resp 12 11/21/22 08:51 BP 126/76 11/21/22 10:45 Pulse Ox 96 11/21/22 10:45 O2 Del Method 11/21/22 08:40 O2 Flow Rate 2 11/18/22 20:59 FiO2 30 11/21/22 08:51 11/20/22 11/21/22 11/21/22 22:59 06:59 14:59 Intake Total 347.176 / 834.663 9739.820 / 1827.161 200 / 200 Output Total 300 / 300 450 / 750 Balance 47.176 / 195.341 881.820 / 1077.161 200 / 200 Weight last 48 hrs Weight 124 lb Weight 128 lb Physical Exam Urinary Catheter Management: Carmichael: Cath Placed During This Visit: yes Reason for Continuing Indwelling Catheter: Accurate Measurement of Urinary Output in Critically Ill Patients Urinary Catheter Date of Insertion: 11/17/22 Urinary Catheter Time of Insertion: 22:19 Data 11/21/22 06:33 11/21/22 06:33 Micro: Microbiology 11/20/22 04:00 Blood Culture - Preliminary Blood NEGATIVE TO DATE 11/20/22 04:05 Blood Culture - Preliminary Blood NEGATIVE TO DATE 11/17/22 17:17 Blood Culture - Final Blood Methicillin Resis Staph Aureus 11/20/22 11:35 Gram Stain - Final Sputum - Endotracheal Tube Aspirate 11/17/22 22:16 Urine Culture - Final Urine Catheterized Attestations Critical Care Time: The high probability of a clinically significant, sudden or life threatening deterioration of the patient's [] system(s) required my full and direct attention, intervention and personal management. The critical care time is as shown. This time is in addition to time spent performing any reported procedures but includes the following: [x] Data and vital sign review and interpretation [x] Patient assessment, examination and intervention [x] Documentation [x] Medication orders and management Coding Level of Care Code Acute Code for Joey Fwd
--- NOTE | 2022-11-21 12:39 | PM.PN ---
Subjective Subjective: / bcx positive for MRSA patient intubated sedated versed @ 2 propofol and fentayl gtt urine output 750 overnight chest has very decreased breath sounds Vitals/I&O/Wt Last Vital Signs Temp 97.1 F L 11/21/22 07:45 Pulse 90 11/21/22 12:03 Resp 12 11/21/22 11:56 BP 126/76 11/21/22 10:45 Pulse Ox 99 11/21/22 11:56 O2 Del Method 11/21/22 11:39 O2 Flow Rate 2 11/18/22 20:59 FiO2 30 11/21/22 11:56 11/20/22 11/21/22 11/21/22 22:59 06:59 14:59 Intake Total 347.176 / 160.584 9779.820 / 1827.161 200 / 200 Output Total 300 / 300 450 / 750 Balance 47.176 / 195.341 881.820 / 1077.161 200 / 200 Weight last 48 hrs Weight 56.245 kg Weight 58.06 kg Physical Exam Narrative: General: intubated, sedated HEENT:NCAT, PERRLA, Neck: Supple Lungs: very Reduced breath sounds bilaterally, right side almost absent breath sounds Heart: s1/s2, RRR Abd: soft, NT, ND, BS + Normoactive Extremities: No edema SKIN: Extremities show left lower extremity with old appearing black eschars, and erythema surrounding.? Back several decub's noted, high iliac area Urinary Catheter Management: Carmichael: Cath Placed During This Visit: yes Reason for Continuing Indwelling Catheter: Accurate Measurement of Urinary Output in Critically Ill Patients Urinary Catheter Date of Insertion: 11/17/22 Urinary Catheter Time of Insertion: 22:19 Data 11/21/22 06:33 11/21/22 06:33 Micro: Microbiology 11/20/22 04:00 Blood Culture - Preliminary Blood NEGATIVE TO DATE 11/20/22 04:05 Blood Culture - Preliminary Blood NEGATIVE TO DATE 11/17/22 17:17 Blood Culture - Final Blood Methicillin Resis Staph Aureus 11/20/22 11:35 Gram Stain - Final Sputum - Endotracheal Tube Aspirate 11/17/22 22:16 Urine Culture - Final Urine Catheterized A&P Assessment and plan (1) CO2 narcosis: (2) Hypercapnic respiratory failure: (3) Altered mental status: (4) Atrial flutter: (5) Acute encephalopathy: (6) Goals of care, counseling/discussion: (7) Protein calorie malnutrition: (8) Alcohol abuse with withdrawal: (9) COPD with acute exacerbation: (10) Acute respiratory failure with hypoxemia: (11) Sepsis: (12) Cellulitis: (13) Tachycardia: Plan #Vent dependent respiratory failure #MRSA bacteremia #Altered mental status #History of liver disease #COPD #Liver cirrhosis #Hypernatremia #Alcohol withdrawal #Sepsis secondary to cellulitis #Worsening BUN and hypernatremia #Severe protein calorie malnutrition ? intubated, sedated ? Head CT did not show any acute abnormalities ? Ammonia level is normal ? Patient was on CIWA protocol. Continue multivitamins, folic acid, thiamine ? Continue fentanyl and Versed for sedation. add propofol. ? Continue DuoNeb scheduled, IV steroids solumed [id number] ? General surgery is on board and started on debridement. ? Blood culture positive for mrsa 02/01 bottles - tte neg for endocarditis - will request for lashawn ? Continue vancomycin, Zosyn. Clindamycin was given for toxin suppression. It has been discontinued now. ? Patient dehydrated. Continue free water flushes through OG tube. ? Continue tube feeds with Glucerna - pt at risk of pneumothorax. low threshold to repeat xray. DVT prophylaxis: SCDtalib Lovenox Prognosis is poor Attestations Medical Necessity Statement*: Patient requires multiple more nights in the hospital for intensive care related to alcohol withdrawal Coding Level of Care Code Acute Code for Chg Fwd Diagnoses CO2 narcosis R06.89 Hypercapnic respiratory failure J96.92 Altered mental status R41.82 Atrial flutter I48.92 Acute encephalopathy G93.40 Goals of care, counseling/discussion Z71.89 Protein calorie malnutrition E46 Alcohol abuse with withdrawal F10.139 COPD with acute exacerbation J44.1 Acute respiratory failure with hypoxemia J96.01 Sepsis A41.9 Cellulitis L03.90 Tachycardia R00.0
[2022-11-21] MEDS: propofol 1,000 MG/100 ML INJ 6.97 MG IV (15:55)
[2022-11-21 17:01] LABS: Blood Urea Nitrogen 39 mg/dL (8-23); Calcium 8.2 mg/dL (8.5-10.5); Carbon Dioxide 23 mmol/L (22-29); Chloride 107 mmol/L (98-107); Glucose 123 mg/dL (65-115); Osmolality Calculated 305 mOsm/kg (285-295); Sodium 142 mmol/L (136-145)
[2022-11-21 17:05] LABS: Anion Gap 16.1 (5-19); Potassium 4.1 mmol/L (3.5-5.1)
[2022-11-21] MEDS: metoprolol tartrate 50 mg Tablet 25 MG PO (17:09)
--- NOTE | 2022-11-21 17:15 | PM.PN ---
Subjective Subjective: Patient seen and examined. Maryyl currently working well to chemically debride left lower extremity eschars Vitals/I&O/Wt Last Vital Signs Temp 97.4 F L 11/21/22 12:30 Pulse 91 11/21/22 15:49 Resp 18 11/21/22 15:41 BP 117/75 11/21/22 14:30 Pulse Ox 100 11/21/22 15:41 O2 Del Method 11/21/22 15:35 O2 Flow Rate 2 11/18/22 20:59 FiO2 30 11/21/22 15:41 11/21/22 11/21/22 11/21/22 06:59 14:59 22:59 Intake Total 1331.820 / 1827.161 295.25 / 295.25 140.479 / 435.729 Output Total 450 / 750 200 / 200 Balance 881.820 / 1077.161 95.25 / 95.25 140.479 / 235.729 Weight last 48 hrs Weight 124 lb Weight 128 lb Physical Exam Narrative: General: Intubated and sedated Extremities: Left lower extremity with 2 decubitus ulcers with overlying eschars. Santyl appears to be working well for debridement. No cellulitis Urinary Catheter Management: Carmichael: Cath Placed During This Visit: yes Reason for Continuing Indwelling Catheter: Accurate Measurement of Urinary Output in Critically Ill Patients Urinary Catheter Date of Insertion: 11/17/22 Urinary Catheter Time of Insertion: 22:19 Data 11/21/22 06:33 11/21/22 16:20 Micro: Microbiology 11/17/22 17:05 Blood Culture - Final Blood Methicillin Resis Staph Aureus 11/20/22 11:35 Gram Stain - Final Sputum - Endotracheal Tube Aspirate Sputum Culture - Preliminary 11/20/22 04:00 Blood Culture - Preliminary Blood NEGATIVE TO DATE 11/20/22 04:05 Blood Culture - Preliminary Blood NEGATIVE TO DATE 11/17/22 17:17 Blood Culture - Final Blood Methicillin Resis Staph Aureus 11/17/22 22:16 Urine Culture - Final Urine Catheterized A&P Assessment and plan (1) Unstageable decubitus ulcer: Plan Santyl and sterile dressings to the left lower extremity decubitus ulcers once daily Medical management per hospitalist Will follow Attestations Medical Necessity Statement*: Patient requires multiple more nights in the hospital for intensive care related to alcohol withdrawal Coding Level of Care Code Acute Code for Chg Fwd Diagnoses Unstageable decubitus ulcer L89.95
--- NOTE | 2022-11-21 18:34 | PC.NURSE ---
Shift SUmmary: Uneventful shift. Patient rested in bed throughout the day. Fentanyl was paused and steroids increased due to coarseness and wheezing, noticeable improvement after these changes, but still coarse and wheezing throughout.
[2022-11-21] MEDS: vancomycin 1,000 MG in sodium chloride 0.9% 250 ML 250 MG IV (19:23)
--- NOTE | 2022-11-21 21:08 | PC.NURSE ---
Tube feeds started 2044 Datar called for update on patient. Order for Tube feed received. Jevity at 20ml/hr. Start at 10ml/hr and increase by 10ml every 6 hours with 200ml water flush Q6H.
[2022-11-21] MEDS: propofol 1,000 MG/100 ML INJ 12.19 MG IV (21:59)
[2022-11-22] VITALS (104 sets, daily range): BP systolic 101–166; BP diastolic 70–111; PULSE 52–97; RESP 12–24; TEMP 36.6–37.1; O2SAT 94–100
[2022-11-22] MEDS: piperacillin-tazobactam 3.375 GM in sodium chloride 0.9% (plus) 50 ML IV ×3 (00:46→15:25)
[2022-11-22] MEDS: enoxaparin 60 mg/0.6 mL Syringe 50 MG SUBCUT ×2 (00:47→13:06)
[2022-11-22] MEDS: ipratropium-albuterol 3 mL Neb INHALATION (03:08)
[2022-11-22] MEDS: propofol 1,000 MG/100 ML INJ 12.19 MG IV ×3 (04:47→23:17)
[2022-11-22] MEDS: chlorhexidine gluconate 4% Btl 118 mL 1 APPLIC TOPICAL (04:48)
[2022-11-22] MEDS: pantoprazole 40 mg SDV IVP ×2 (04:54→18:00)
[2022-11-22 05:17] LABS: Albumin Level 2.8 g/dL (3.5-5.2); Alkaline Phosphatase 75 U/L (40-130); Blood Urea Nitrogen 34 mg/dL (8-23); Calcium 8.4 mg/dL (8.5-10.5); Carbon Dioxide 22 mmol/L (22-29); Chloride 106 mmol/L (98-107); Globulin 4.3 g/dL (1.3-4.6); Glomerular Filtration Rate 218.7 mL/min (90-130); Glucose 122 mg/dL (65-115); Magnesium 2.5 mg/dL (1.7-2.3); Osmolality Calculated 301 mOsm/kg (285-295); Sodium 141 mmol/L (136-145); Total Bilirubin 0.4 mg/dL (0.15-1.2); Total Protein 7.1 g/dL (6.6-8.7)
[2022-11-22 05:43] LABS: Alanine Aminotransferase 9 U/L (0-41); Anion Gap 17.2 (5-19); Aspartate Amino Transferase 15 U/L (0-40); Potassium 4.2 mmol/L (3.5-5.1)
--- NOTE | 2022-11-22 07:45 | PC.NUTR ---
Received consult for TF 11/21 @ 20:39. Jevity 1.2 with goal rate of 20 mls/hr and 200 mls flushes in Orders. Recommend goal rate Jevity 1.2 of 40 mls/hr with flushes 80 mls Q4H or per MD discretion. Details in RD assessment.
[2022-11-22] MEDS: ipratropium 0.5 mg/2.5 mL Neb INHALATION ×4 (08:14→20:27)
[2022-11-22] MEDS: albuterol 2.5 mg/3 mL Neb INHALATION ×4 (08:14→20:27)
[2022-11-22] MEDS: budesonide 0.5 mg/2 mL Neb INHALATION ×2 (08:14→20:27)
[2022-11-22] MEDS: metoprolol tartrate 50 mg Tablet 25 MG PO ×2 (08:47→18:01)
[2022-11-22] MEDS: multivitamin therapeutic Tablet 1 TAB PO (08:47)
[2022-11-22] MEDS: folic acid 1 mg Tablet PO (08:47)
[2022-11-22] MEDS: collagenase oint 30 gm 1 APPLIC TOPICAL (08:50)
[2022-11-22 08:53] LABS: Basophils % 0.1 %; Hemoglobin 11.4 g/dL (11.7-16.6); Lymphocytes # 0.6 10^3/uL (0.8-4.8); Lymphocytes % 6.7 %; Mean Corpuscular HGB Conc 31.7 g/dL (30.0-36.0); Mean Corpuscular Hemoglobin 34.5 pg (28.0-34.0); Mean Corpuscular Volume 109.1 fl (80-94); Mean Platelet Volume 12.6 fL (7.4-10.4); Monocytes # 0.6 10^3/uL (0.2-0.9); Monocytes % 7.3 %; Neutrophils # 7.16 10^3/uL (1.8-7.7); Neutrophils % 84.1 %; Nucleated Red Blood Cells % 0 %; Platelet Count 90 10^3/cmm (130-400); Red Cell Distribution Width 12.7 % (12.1-15.1); White Blood Count 8.5 10^3/uL (4.0-10.0)
[2022-11-22] MEDS: dexmedetomidine 400 MCG in sodium chloride 0.9% (100 ml) 100 ML 6.19 MCG IV (09:22)
--- NOTE | 2022-11-22 13:45 | PM.PN ---
Subjective Subjective: Discontinue Versed Continue propofol Decrease PEEP as well FiO2 30% Adequate urine output No leukocytosis no fever bacteremia with MRSA MRSA pneumonia Dr. Halrey recommended transesophageal echo before we extubate, will touch base with Dr. Chiu Vitals/I&O/Wt Last Vital Signs Temp 97.9 F 11/22/22 07:43 Pulse 93 11/22/22 12:12 Resp 20 H 11/22/22 12:16 BP 137/80 11/22/22 10:00 Pulse Ox 95 11/22/22 12:16 O2 Del Method 11/22/22 12:12 O2 Flow Rate 2 11/18/22 20:59 FiO2 24 11/22/22 12:16 11/21/22 11/22/22 11/22/22 22:59 06:59 14:59 Intake Total 1148.147 / 1443.397 582.892 / 2026.289 100 / 100 Output Total 250 / 450 400 / 850 Balance 898.147 / 993.397 182.892 / 1176.289 100 / 100 Weight last 48 hrs Weight 59.5 kg Weight 56.245 kg Physical Exam Narrative: Patient is euvolemic Debated and sedated S1, S2 Hemodynamically stable Currently on propofol FiO2 30% PEEP 10 which is being titrated off Adequate urine output Patient is opening eyes not responding to painful stimuli Abdomen soft Nondistended Unstageable ulcer left leg Purulent cellulitis left toe area Urinary Catheter Management: Carmichael: Cath Placed During This Visit: yes Reason for Continuing Indwelling Catheter: Accurate Measurement of Urinary Output in Critically Ill Patients Urinary Catheter Date of Insertion: 11/17/22 Urinary Catheter Time of Insertion: 22:19 Data 11/22/22 08:29 11/22/22 03:22 Micro: Microbiology 11/20/22 11:35 Gram Stain - Final Sputum - Endotracheal Tube Aspirate Sputum Culture - Preliminary Coag positive Staphylococcus 11/21/22 14:00 Urine Culture - Preliminary Urine Catheterized 11/17/22 17:05 Blood Culture - Final Blood Methicillin Resis Staph Aureus A&P Assessment and plan (1) Unstageable decubitus ulcer: (2) CO2 narcosis: (3) Hypercapnic respiratory failure: (4) Altered mental status: (5) Atrial flutter: (6) Liver disease: (7) Acute encephalopathy: (8) Alcohol abuse with withdrawal: (9) Muscular deconditioning: (10) COPD with acute exacerbation: (11) Acute respiratory failure with hypoxemia: (12) Cellulitis: Plan MRSA pneumonia Patient is intubated and sedated Wean off sedation Plan to extubate once we do transesophageal echo MRSA bacteremia Rule out endocarditis Will touch this with cardiology Continue antibiotics Afebrile no leukocytosis Sputum positive for MRSA Repeat blood cultures negative Sepsis: Resolved Cellulitis of left lower cover with antibiotics Unstageable ulcer of left leg Appreciate Dr. Maza's recommendation Continue Santyl History of COPD, Might be a good candidate for LTAC placement because he will need 6 to 8 weeks of IV antibiotics Once he is extubated monitor for signs of withdrawal Severe muscular deconditioning noted Low BMI Currently on tube feeding, optimized to 30 cc/h DVT prophylaxis on board Limited resuscitation Patient is at risk of pneumothorax, no significant worsening noted FiO2 30% PEEP 10 which will be reduced today Attestations Medical Necessity Statement*: Continue medical management Time Spent in Patient Care: 30 Coding Level of Care Code Acute Code for g Fwd Diagnoses Unstageable decubitus ulcer L89.95 CO2 narcosis R06.89 Hypercapnic respiratory failure J96.92 Altered mental status R41.82 Atrial flutter I48.92 Liver disease K76.9 Acute encephalopathy G93.40 Alcohol abuse with withdrawal F10.139 Muscular deconditioning R29.898 COPD with acute exacerbation J44.1 Acute respiratory failure with hypoxemia J96.01 Cellulitis L03.90
[2022-11-22] MEDS: sodium chloride 0.45% 1,000 ML 50 ML IV (15:19)
--- NOTE | 2022-11-22 16:01 | PM.CONSULT ---
Providers/Reason For Consult Consulting Physician/Specialty*: Wellington Constantino MD/ Cardiology Reason for Consult*: ALE to rule out infective endocarditis Requesting Physician: Dr Perea Attending Physician: Ozzy Perea MD Primary Care Provider: [facility] History of Present Illness History of Present Illness Ramesh Henry is a 62 year old male with past medical history of alcoholic cirrhosis, atrial flutter on Xarelto, COPD who presented to the hospital with shortness of breath and altered mental status. He is currently being treated for MRSA pneumonia. Also had MRSA bacteremia. Cardiology consulted for transesophageal echocardiogram to rule out infective endocarditis. Review of Systems General: Reports: ROS unobtainable due to medical condition Medications/Allergies Home Medications Medication Instructions Recorded Confirmed Last Taken Type albuterol sulfate 90 mcg/actuation 2 puff inhalation QID PRN 07/14/20 11/18/22 Unknown History aerosol inhaler Shortness Of Breath budesonide-formoterol HFA 80 2 puff inhalation BID 07/14/20 11/18/22 Unknown History mcg-4.5 mcg/actuation aerosol inhaler cholecalciferol (vitamin D3) 50 2,000 unit PO DAILY 07/14/20 11/18/22 Unknown History mcg (2,000 unit) tablet (Vitamin D3) etodolac 400 mg tablet 400 mg PO BID PRN Pain 07/14/20 11/18/22 Unknown History gabapentin 100 mg capsule 200 mg PO TID 07/14/20 11/18/22 Unknown History pantoprazole 40 mg tablet,delayed 40 mg PO BID 07/14/20 11/18/22 Unknown History release (Protonix) rivaroxaban 20 mg tablet 20 mg PO QPM 07/14/20 11/18/22 Unknown History acamprosate 333 mg tablet,delayed 333 mg PO TID 11/18/22 11/18/22 Unknown History release fluticasone 100 mcg-salmeterol 50 1 inh inhalation BID 11/18/22 11/18/22 Unknown History mcg/dose blistr powdr for inhalation guaifenesin 400 mg tablet 400 mg PO Q4H PRN Congestion 11/18/22 11/18/22 Unknown History lactulose 10 gram/15 mL oral 30 g PO BID PRN Delirium 11/18/22 11/18/22 Unknown History solution melatonin 3 mg tablet 9 mg PO BEDTIME 11/18/22 11/18/22 Unknown History Allergies Allergy/AdvReac Type Severity Reaction Status Date / Time No Known Allergies Allergy Verified 11/18/22 08:53 Current Medications Generic Name Dose Route Start Last Admin Trade Name Priyankq PRN Reason Stop Dose Admin Albuterol Sulfate 2.5 mg 11/22/22 08:00 11/22/22 15:00 Albuterol 2.5 Mg/3 Ml Neb INHALATION 2.5 mg Q4H.RESPIRATORY JOLYNN Administration Budesonide 0.5 mg 11/18/22 21:00 11/22/22 08:14 Budesonide 0.5 Mg/2 Ml Neb INHALATION 0.5 mg BID.RESPIRATORY JOLYNN Administration Chlorhexidine Gluconate 1 applic 11/20/22 22:45 11/22/22 04:48 Chlorhexidine Gluconate 4% Btl 118 Ml TOPICAL 1 applic Q24H JOLYNN Administration Collagenase 1 applic 11/19/22 11:00 11/22/22 08:50 Collagenase Oint 30 Gm TOPICAL 1 applic DAILY JOLYNN Administration Enoxaparin Sodium 50 mg 11/18/22 12:30 11/22/22 13:06 Enoxaparin 60 Mg/0.6 Ml Syringe SUBCUT 50 mg Q12H JOLYNN Administration Folic Acid 1 mg 11/18/22 09:00 11/22/22 08:47 Folic Acid 1 Mg Tablet PO 1 mg DAILY JOLYNN Administration Dexmedetomidine HCl 400 mcg/ 104 mls @ 0 mls/hr 11/17/22 22:17 11/20/22 11:47 Sodium Chloride IV 0 mcg/kg/hr .Q0M JOLYNN 0 mls/hr Titration Protocol Per Protocol Piperacillin Sod/Tazobactam 50 mls @ 12.5 mls/hr 11/18/22 08:00 11/22/22 15:25 Sod 3.375 gm/ Sodium Chloride IV 12.5 mls/hr Q8H JOLYNN Administration Sodium Chloride 1,000 mls @ 50 mls/hr 11/19/22 07:15 11/22/22 15:19 Sodium Chloride 0.45% IV 50 mls/hr .Q20H JOLYNN Administration Midazolam HCl 100 mg/ Sodium 100 mls @ 0 mls/hr 11/20/22 10:45 11/21/22 19:25 Chloride IV 3 mg/hr .Q0M JOLYNN 3 mls/hr Administration Protocol Per Protocol Fentanyl 2,500 mcg/ Sodium 250 mls @ 0 mls/hr 11/20/22 10:45 11/21/22 11:00 Chloride IV 0 mcg/hr .Q0M JOLYNN 0 mls/hr Titration Protocol Per Protocol Propofol 1,000 mg in 100 mls @ 0 mls/hr 11/20/22 19:15 11/22/22 13:06 Diprivan IV 35 mcg/kg/min .Q0M JOLYNN 12.19 mls/hr Administration Protocol Per Protocol Vancomycin HCl 1,000 mg/ 250 mls @ 250 mls/hr 11/21/22 19:30 11/22/22 06:09 Sodium Chloride IV Infused Q24H JOLYNN Infusion Fentanyl 1,000 mcg/ Sodium 100 mls @ 0 mls/hr 11/22/22 09:00 11/22/22 09:22 Chloride IV 25 mcg/hr .Q0M JOLYNN 2.5 mls/hr Administration Protocol Per Protocol Dexmedetomidine HCl 400 mcg/ 104 mls @ 0 mls/hr 11/22/22 09:00 11/22/22 09:22 Sodium Chloride IV 0.4 mcg/kg/hr .Q0M JOLYNN 6.19 mls/hr Administration Protocol Per Protocol Ipratropium [place] 0.5 mg 11/22/22 08:00 11/22/22 15:00 Ipratropium 0.5 Mg/2.5 Ml Neb INHALATION 0.5 mg Q4H.RESPIRATORY JOLYNN Administration Methylprednisolone Sodium Succinate 40 mg 11/21/22 16:00 11/22/22 15:24 Methylprednisolone Sod Succ 40 Mg/Ml Inj IVP 40 mg Q8H JOLYNN Administration Metoprolol Tartrate 25 mg 11/18/22 09:00 11/22/22 08:47 Metoprolol Tartrate 50 Mg Tablet PO 25 mg BID JOLYNN Administration Morphine Sulfate 2 mg 11/20/22 00:36 11/20/22 00:42 Morphine 4 Mg/Ml Sdv 1 Ml IVP 2 mg Q4H PRN Administration SEVERE PAIN Multivitamins Therapeutic 1 tab 11/18/22 09:00 11/22/22 08:47 Multivitamin Therapeutic Tablet PO 1 tab DAILY JOLYNN Administration Pantoprazole Sodium 40 mg 11/20/22 17:00 11/22/22 04:54 Pantoprazole 40 Mg Sdv IVP 40 mg Q12H JOLYNN Administration Thiamine HCl 100 mg 11/22/22 09:00 11/22/22 08:49 Thiamine 100 Mg/Ml Sdv IVP 100 mg DAILY JOLYNN Administration PFSH Acute PFSH: Medical History Alcohol dependence Atrial flutter COPD (chronic obstructive pulmonary disease) Essential (primary) hypertension Liver disease Post traumatic stress disorder (PTSD) Surgical History No pertinent past surgical history Family History Mother CAD (coronary artery disease) Other Colon polyp Social History Smoking and tobacco status: never smoked Alcohol intake: current Substance/Drug Use: never Vitals/I&O/Wt Last Vital Signs Temp 97.9 F 11/22/22 07:43 Pulse 76 11/22/22 15:00 Resp 14 11/22/22 15:00 BP 137/80 11/22/22 10:00 Pulse Ox 97 11/22/22 15:00 O2 Del Method 11/22/22 15:00 O2 Flow Rate 2 11/18/22 20:59 FiO2 24 11/22/22 15:00 11/22/22 11/22/22 11/22/22 06:59 14:59 22:59 Intake Total 582.892 / 2026.289 150 / 150 993.333 / 1143.333 Output Total 400 / 850 Balance 182.892 / 1176.289 150 / 150 993.333 / 1143.333 Weight last 48 hrs Weight 131 lb 2.801 oz Weight 124 lb Physical Exam Narrative: GENERAL: Sedated and intubated NECK: No jugular vein distension. [] HEENT: No cyanosis. No icterus. No pallor. [] HEART: Regular S1 and S2. No murmur, rub or gallop. [] LUNGS: Clear to auscultate bilaterally. [] ABDOMEN: Soft EXTREMITIES: Lower extremities with 1+ edema bilaterally Urinary Catheter Management: Carmichael: Cath Placed During This Visit: yes Reason for Continuing Indwelling Catheter: Accurate Measurement of Urinary Output in Critically Ill Patients Urinary Catheter Date of Insertion: 11/17/22 Urinary Catheter Time of Insertion: 22:19 Data 11/22/22 08:29 11/22/22 03:22 Micro: Microbiology 11/20/22 11:35 Gram Stain - Final Sputum - Endotracheal Tube Aspirate Sputum Culture - Preliminary Coag positive Staphylococcus 11/21/22 14:00 Urine Culture - Preliminary Urine Catheterized 11/17/22 17:05 Blood Culture - Final Blood Methicillin Resis Staph Aureus A&P Assessment and plan (1) MRSA bacteremia: (2) Staphylococcal pneumonia: (3) Altered mental status: (4) Liver disease: (5) Atrial flutter: Plan In order to rule out infective endocarditis, plan for transesophageal echocardiogram tomorrow. ALE discussed with patient's mother and verbal consent obtained over the phone NPO past midnight. Thank you for involving us with care of this patient. We will continue to follow. Please call with questions. Consult Attestations Medical Necessity Statement: Care expected to cross 2 midnights. Coding Level of Care Code Acute Code for [facility] Fwd Diagnoses MRSA bacteremia R78.81; B95.62 Staphylococcal pneumonia J15.20 Altered mental status R41.82 Liver disease K76.9 Atrial flutter I48.92
--- NOTE | 2022-11-22 17:57 | P.PN_ITS ---
Subjective Subjective: Patient seen at bedside today Plan is to taper down Versed and do awakening trial Patient blood cultures were positive for MRSA and repeat cultures are negative so far; sputum cultures grew coagulase positive staph-patient is covered with vancomycin; white count is improving, no fever spikes Transthoracic echo did not show any vegetations however it was technically very limited quality echocardiogram due to poor ultrasonic windows-cardiology consulted for ALE Other labs and imaging reviewed Medications: Reviewed: Yes Vitals/I&O/Wt Last Vital Signs Temp 98.2 F 11/22/22 14:45 Pulse 64 11/22/22 17:45 Resp 16 11/22/22 17:21 BP 154/85 11/22/22 17:45 Pulse Ox 97 11/22/22 17:45 O2 Del Method 11/22/22 15:00 O2 Flow Rate 2 11/18/22 20:59 FiO2 24 11/22/22 17:21 11/22/22 11/22/22 11/22/22 06:59 14:59 22:59 Intake Total 582.892 / 2026.289 150 / 150 993.333 / 1143.333 Output Total 400 / 850 Balance 182.892 / 1176.289 150 / 150 993.333 / 1143.333 Weight last 48 hrs Weight 131 lb 2.801 oz Weight 124 lb Physical Exam Narrative: PHYSICAL EXAM: General: lying in bed, sedated and intubated. HEENT:NCAT, PERRLA, EOMI Neck: Supple Lungs: Mild expiratory wheezing present significantly better than yesterday Heart: s1/s2, RRR Abd: soft, NT, ND, BS + Normoactive Extremities: No edema VOCATIONAL NURSE LVN: sedated and limited VOCATIONAL NURSE LVN exam possible. SKIN: no rash Urinary Catheter Management: Carmichael: Cath Placed During This Visit: yes Reason for Continuing Indwelling Catheter: Accurate Measurement of Urinary O utput in Critically Ill Patients Urinary Catheter Date of Insertion: 11/17/22 Urinary Catheter Time of Insertion: 22:19 Data 11/22/22 08:29 11/22/22 03:22 Other Labs: Radiology Impressions Chest/Abdomen/Pelvis CT 11/17/22 18:59 IMPRESSION: 1. No pulmonary embolus. The 2. Centrilobular emphysema. Mild diffuse peribronchial thickening. No consolidation. IMPRESSION: 1. Distended urinary bladder. Urinary retention should be considered in the adequate clinical setting. Otherwise no acute intra-abdominal or intrapelvic pathology. 2. Cirrhotic liver. Foot CT 11/17/22 21:59 IMPRESSION: 1. No evidence of fracture, focal bone destruction, or soft tissue gas to suggest necrotizing fasciitis. 2. Mid to distal foot subcutaneous edema/cellulitis. If there is concern for early osteomyelitis, an MRI would be more sensitive. 3. Chronic findings above with vascular calcifications and DJD. Lower Extremity CT 11/17/22 21:59 IMPRESSION: 1. No evidence of fracture, focal bone destruction, or soft tissue gas to suggest necrotizing fasciitis. 2. Diffuse lower leg subcutaneous edema/cellulitis with a few chavez skin ulcerations. No definite or sizable abscess on this unenhanced exam. If there is concern for early osteomyelitis, an MRI would be more sensitive. 3. Chronic findings above with vascular calcifications and DJD. Head CT 11/18/22 12:47 IMPRESSION: No acute intracranial abnormality. Chest X-Ray 11/21/22 09:13 IMPRESSION: There are emphysematous changes in the lungs, similar to the prior study. No evidence for acute cardiopulmonary disease. Laboratory Results WBC 8.5 10^3/uL (4.0-10.0) 11/22/22 08:29 Corrected WBC Cancelled 11/22/22 03:22 RBC 3.30 10^6/uL (4.1-5.3) L 11/22/22 08:29 Hgb 11.4 g/dL (11.7-16.6) L 11/22/22 08:29 Hct 36.0 % (42.0-52.0) L 11/22/22 08:29 MCV 109.1 fl (80-94) H 11/22/22 08:29 MCH 34.5 pg (28.0-34.0) H 11/22/22 08:29 MCHC 31.7 g/dL (30.0-36.0) 11/22/22 08:29 RDW 12.7 % (12.1-15.1) 11/22/22 08:29 Plt Count 90 10^3/cmm (130-400) L 11/22/22 08:29 MPV 12.6 fL (7.4-10.4) H 11/22/22 08:29 Gran % Cancelled 11/22/22 03:22 Neut % (Auto) 84.1 % 11/22/22 08:29 Lymph % (Auto) 6.7 % 11/22/22 08:29 [place] % (Auto) 7.3 % 11/22/22 08:29 Eos % (Auto) 0.0 % 11/22/22 08:29 Baso % (Auto) 0.1 % 11/22/22 08:29 Neut # (Auto) 7.16 10^3/uL (1.8-7.7) 11/22/22 08:29 Lymph # (Auto) 0.6 10^3/uL (0.8-4.8) L 11/22/22 08:29 [place] # (Auto) 0.6 10^3/uL (0.2-0.9) 11/22/22 08:29 Eos # (Auto) 0.0 10^3/uL (0.0-0.8) 11/22/22 08:29 Baso # (Auto) 0.0 10^3/uL (0.0-0.1) 11/22/22 08:29 Absolute Gran (auto) Cancelled 11/22/22 03:22 Nucleated RBC % (auto) 0 % 11/22/22 08:29 Total Counted 100 (0-100) 11/17/22 17:05 Atypical Lymphs % 3.0 % (0-5) 11/17/22 17:05 Absolute Neutrophils 27.8 10^3/cmm (1.4-6.5) H 11/17/22 17:05 Segmented Neutrophils 67 % 11/17/22 17:05 Abs Segm Neuts (Man) 20.4 10/cmm (1.6-7.1) H 11/17/22 17:05 Band Neutrophils 24.0 % 11/17/22 17:05 Abs Band Neuts (Man) 7.3 10^3/cmm (0.0-1.2) H 11/17/22 17:05 Absolute Lymphocytes 2.1 10^3/cmm (1.2-3.4) 11/17/22 17:05 Lymphocytes (Manual) 4 % 11/17/22 17:05 Monocytes (Manual) 2.0 % 11/17/22 17:05 Absolute Monocytes 0.6 10^3/cmm (0.1-0.6) 11/17/22 17:05 Eosinophils (Manual) 0 % 11/17/22 17:05 Absolute Eosinophils 0.0 10^3/cmm (0.0-0.7) 11/17/22 17:05 Basophils (Manual) 0.0 % 11/17/22 17:05 Absolute Basophils 0.0 10^3/cmm (0.0-0.2) 11/17/22 17:05 Nucleated RBCs # 0.0 /100WBC 11/22/22 08:29 Platelet Estimate Normal (Normal) 11/17/22 17:05 Giant Platelets 1+ H 11/17/22 17:05 Dimorphic RBCs 4+ H 11/17/22 17:05 Polychromasia 3+ H 11/17/22 17:05 Hypochromasia 1+ H 11/17/22 17:05 Poikilocytosis 4+ H 11/17/22 17:05 Anisocytosis 4+ H 11/17/22 17:05 Microcytosis 4+ H 11/17/22 17:05 Macrocytosis 4+ H 11/17/22 17:05 Spherocytes 4+ 11/17/22 17:05 Tear Drop Cells 3+ 11/17/22 17:05 Phuong Cells 4+ H 11/17/22 17:05 Acanthocytes (Spur) 1+ H 11/17/22 17:05 Schistocytes 3+ H 11/17/22 17:05 ESR 13 mm/hr (0-10) H 11/17/22 22:16 PT 12.50 SECONDS (12.1-14.9) 11/17/22 22:16 INR 0.90 (0.8-1.2) 11/17/22 22:16 APTT 28.4 SECONDS (23.9-36.7) 11/17/22 22:16 Fibrinogen 539 mg/dL (174-498) H 11/17/22 22:16 Fibrin Degrad Products Pos, 10-40 ug/mL (NEG) H 11/17/22 22:16 D-Dimer 3.46 ug/mIFEU (0-0.59) H 11/17/22 22:16 Specimen Type Arterial 11/21/22 06:20 Sample Site Radial, right 11/21/22 06:20 ABG pH 7.42 (7.35-7.45) 11/21/22 06:20 ABG pCO2 44.6 mmHg (35-45) 11/21/22 06:20 ABG pO2 136.0 mmHg (80.0-100.0) H 11/21/22 06:20 ABG HCO3 28.9 mmol/L (22-26) H 11/21/22 06:20 ABG O2 Saturation 99.4 11/20/22 13:02 ABG Base Excess 3.8 mmol/L (-2.0-2.0) H 11/21/22 06:20 Catalino Test Pos 11/21/22 06:20 A-a O2 Gradient 20.6 mmHg (5-10) H 11/20/22 13:02 Hematocrit 33.5 % (42-52) L 11/21/22 06:20 Hgb O2 Saturation 98.1 % (95-100) 11/20/22 13:02 Carboxyhemoglobin < 1.0 %THgb (0.4-20.1) 11/20/22 13:02 Methemoglobin 0.5 % (0.4-1.5) 11/20/22 13:02 Total Hemoglobin 11.7 g/dL (14-18) L 11/20/22 13:02 Sodium 151.0 mmol/L (131-143) H 11/20/22 13:02 Potassium 4.2 mmol/L (3.5-5.0) 11/20/22 13:02 Glucose 149.0 mg/dL (70-115) H 11/20/22 13:02 Ionized Calcium 1.3 mmol/L (1.1-1.4) 11/20/22 13:02 O2 Delivery Device Vent 11/21/22 06:20 O2 Liters/Min 3.0 % 11/17/22 16:58 FiO2 35.0 % 11/21/22 06:20 Tidal Volume 0.45 11/21/22 06:20 PEEP 8.0 cmH20 11/21/22 06:20 Director [employer] ID [email or web address] 11/21/22 06:20 Sodium 141 mmol/L (136-145) 11/22/22 03:22 Potassium 4.2 mmol/L (3.5-5.1) 11/22/22 03:22 Chloride 106 mmol/L (98-107) 11/22/22 03:22 Carbon Dioxide 22 mmol/L (22-29) 11/22/22 03:22 Anion Gap 17.2 (5-19) 11/22/22 03:22 BUN 34 mg/dL (8-23) H 11/22/22 03:22 Creatinine 0.4 mg/dL (0.7-1.2) L 11/22/22 03:22 GFR Calculation 218.7 mL/min (90-130) H 11/22/22 03:22 Glucose 122 mg/dL (65-115) H 11/22/22 03:22 Estimat Average Glucose 108 11/17/22 17:05 Hemoglobin A1c 5.4 % (4.0-6.0) 11/17/22 17:05 Calculated Osmolality 301 mOsm/kg (285-295) H 11/22/22 03:22 Lactic Acid 1.3 mmol/L (0.5-2.2) 11/17/22 17:05 Calcium 8.4 mg/dL (8.5-10.5) L 11/22/22 03:22 Phosphorus 4.6 mg/dL (2.5-4.5) H 11/17/22 22:16 Magnesium 2.5 mg/dL (1.7-2.3) H 11/22/22 03:22 Total Bilirubin 0.4 mg/dL (0.15-1.2) 11/22/22 03:22 AST 15 U/L (0-40) 11/22/22 03:22 ALT 9 U/L (0-41) 11/22/22 03:22 Alkaline Phosphatase 75 U/L (40-130) 11/22/22 03:22 Ammonia 55 umol/L (16-60) 11/20/22 12:33 Creatine Kinase 69 U/L (39-308) 11/17/22 22:16 Troponin T Baseline 19 ng/L (0-15) H 11/17/22 22:16 Troponin T 120 Minute 18.39 ng/L (0-15) H 11/17/22 23:46 Delta Troponin T -0.61 ABS# (0-10) L 11/17/22 23:46 Troponin T Hi Sens 6Hr 16.18 ng/L (0-15) H 11/18/22 04:00 Troponin T Hi Sens 6Hr Delta -2.82 ng/L (0-12) L 11/18/22 04:00 C-Reactive Protein 101.3 mg/L (0.0-4.9) H 11/17/22 17:05 NT-Pro-B Natriuret Pep 2405 pg/mL (0-125) H 11/18/22 04:00 Total Protein 7.1 g/dL (6.6-8.7) 11/22/22 03:22 Albumin 2.8 g/dL (3.5-5.2) L 11/22/22 03:22 Globulin 4.3 g/dL (1.3-4.6) 11/22/22 03:22 Lipase 9 U/L (13-60) L 11/17/22 22:16 Vitamin B12 896 pg/mL (232-1245) 11/17/22 22:16 Folate 8.6 ng/mL (4.5-32.2) 11/17/22 17:05 Procalcitonin 1.59 ng/mL (0-0.5) H 11/17/22 17:05 TSH 0.30 uIU/mL (0.27-4.20) 11/17/22 22:16 Random Cortisol 29.34 ug/dL (2.47-19.5) H 11/17/22 17:05 Random Cortisol Cancelled 11/17/22 17:05 Urine Color Yellow (Yellow) 11/17/22 22:16 Urine Appearance Clear (CLEAR) 11/17/22 22:16 Urine pH 5 (5-7) 11/17/22 22:16 Ur Specific [place] 1.015 (1.005-1.030) 11/17/22 22:16 Urine Protein Neg (Negative) 11/17/22 22:16 Urine Glucose (UA) Norm (Normal) 11/17/22 22:16 Urine Ketones Negative (Negative) 11/17/22 22:16 Urine Blood Neg (Negative) 11/17/22 22:16 Urine Nitrate Negative (Negative) 11/17/22 22:16 Urine Bilirubin 2+ (Negative) H 11/17/22 22:16 Urine Urobilinogen Norm mg/dL (Negative) 11/17/22 22:16 Ur Leukocyte Esterase Negative (Negative) 11/17/22 22:16 Vancomycin Trough 6.0 ug/mL (10-15) L 11/21/22 17:00 Urine Opiates Screen Negative ng/mL (Negative) 11/17/22 22:16 Ur Barbiturates Screen Negative ng/mL (Negative) 11/17/22 22:16 Ur Phencyclidine Scrn Negative ng/mL (Negative) 11/17/22 22:16 Ur Amphetamines Screen Negative ng/mL (Negative) 11/17/22 22:16 U Benzodiazepines Scrn Negative ng/mL (Negative) 11/17/22 22:16 Urine Cocaine Screen Negative ng/mL (Negative) 11/17/22 22:16 U Marijuana (THC) Screen Negative ng/mL (Negative) 11/17/22 22:16 Ethyl Alcohol < 10 mg/dL (0-10) 11/17/22 22:16 Hepatitis A IgM Ab Non-reactive (Nonreactive) 11/17/22 17:05 Hep Bs Antigen Non-reactive (Nonreactive) 11/17/22 17:05 Hep B Core IgM Ab Non-reactive (Nonreactive) 11/17/22 17:05 Hepatitis C Antibody Non-reactive (Nonreactive) 11/17/22 17:05 HIV 1&2 Ab & HIV 1 Ag Non-reactive (Non-Reactiv) 11/17/22 17:05 HIV 1&2 Antibody Non-reactive (Non-Reactiv) 11/17/22 17:05 Influenza Type A Ag negative (Negative) 11/17/22 17:17 Influenza Type B Ag negative (Negative) 11/17/22 17:17 SARS-CoV-2 Ag (Rapid) Negative (Negative) 11/17/22 17:17 Micro: Microbiology 11/20/22 11:35 Gram Stain - Final Sputum - Endotracheal Tube Aspirate Sputum Culture - Preliminary Coag positive Staphylococcus 11/21/22 14:00 Urine Culture - Preliminary Urine Catheterized 11/17/22 17:05 Blood Culture - Final Blood Methicillin Resis Staph Aureus A&P Assessment and plan (1) Altered mental status: (2) Liver disease: (3) Goals of care, counseling/discussion: (4) Protein calorie malnutrition: (5) Physical deconditioning: (6) Alcohol abuse with withdrawal: (7) COPD with acute exacerbation: (8) Hypercapnic respiratory failure: (9) CO2 narcosis: (10) Staphylococcal pneumonia: (11) MRSA bacteremia: Plan #Altered mental status-multifactorial in patient with underlying COPD/ cirrhosis/sepsis/hypernatremia/alcohol withdrawal -CO2 narcosis-intubated 11/20/2022 to protect airway and for hypercapnia-on mechanical ventilator-we will follow-up with ABGs to adjust settings -Hypernatremia-on free water through PEG tube-improved -CT head 11/18/2022 no acute abnormalities -Patient on CIWA protocol-multivitamins/folic acid/thiamine-no signs of withdrawal-we will taper off Versed today -Ammonia 55 -Sepsis encephalopathy-currently on vancomycin for MRSA bacteremia/staph pneumonia -We will start her on low-dose fentanyl and Precedex -We will continue with awakening trials #COPD exacerbation most likely secondary to staph pneumonia -ABG showing hypercapnia-intubated; ABG today 7.4 2/136/28-on CMV 350/14/PEEP 8/FiO2 45% -Continue scheduled nebulizations and IV steroids and taper based on clinical response #Sepsis-likely MRSA bacteremia-cellulitis from left lower leg from previous trauma -Surgery is on board and is started on chemical debridement -Blood cultures on admission showed/ bottles MRSA; repeat blood cultures sent on 11/20/2021-negative so far -Sputum culture 05/20/2022-coagulase positive staph-suspect staph pneumonia -Patient is on vancomycin, Zosyn- -Monitor fever curve, WBC counts of all cultures to adjust antibiotics-patient currently able to maintain blood pressure without pressors -Transthoracic echo did not show any vegetations -Cardiology consulted for transesophageal echo #Liver cirrhosis -Monitor LFTs #Improving BUN and hypernatremia -Likely secondary to dehydration -Currently receiving free water through NG tube -Monitor closely renal functions #Severe protein energy malnutrition -Continue feeding JVD #Goals of care discussion -Discussed with patient's sister and his mother at bedside-they wanted us to let them know if there is no improvement as they do not want prolonged intubation for him. -I have mentioned that we just intubated and there were several reasons for his altered mental status-including hypercapnia/hyponatremia/sepsis and our goal is to treat reversible conditions and see how patient responds.? If he does not improve in the next 48 to 72 hours-we will update family about his prognosis and they can make decisions at that time.? Both sister and mother agreed with the plan ICU CHECKLIST: Problem list updated Verbal orders reviewed and signed Analgesia: Fentanyl Glycemic Control: N/A Nutrition: We will start Jevity at 20 cc/hour Restraint Renewal (within 24 hrs): Yes Ulcer Prophylaxis: Yes PPI Chemical Thromboprophylaxis: Prophylaxis: Lovenox Mechanical Thromboprophylaxis: SCD Need for Central line: N/A Need for Carmichael catheter: Yes Critical Care Time (No Overlap): 45 min Attestations Medical Necessity Statement*: COPD exacerbation secondary to staph pneumonia and patient with MRSA bacteremia-currently intubated-plan is to extubate in next 24 to 48 hours Time Spent in Patient Care: Greater than 35 minutes (>than 50% of time spent in counselling and/or direct pt care on unit) . Critical Care Time: The high probability of a clinically significant, sudden or life threatening deterioration of the patient's? [neurological/pulmonary/infectious/renal]?system(s)? which requires the highest level of physician preparedness to intervene urgently.? I managed/supervised life or organ supporting interventions that required frequent physician assessment.?my full and direct attention, intervention and personal management in the ICU to the direct care of this patient for the period of time indicated above.? Time I spent with family or surrogate(s) is included only if the patient was incapable of providing necessary information or participating in decision making.? Time devoted to teaching and to any procedures I billed separately is not included. Services Provided: Telemetry review Mechanical Ventilation Hemodynamic interpretation, assessment and management Review and interpretation of CXR Review and interpretation of lab values Review and interpretation of microbiologic data and culture results Review of medications and administration Review and interpretation of Nutrition requirements and management Discussion of management with other consultants and services Clinical update to family members [x] Data and vital sign review and interpretation [x] Patient assessment, examination and intervention [x] Documentation [x] Medication orders and management Critical Care Time (min): 45 Coding Level of Care Code Established Pt Acute Code for Chg Fwd Patient Type Established History Comprehensive Exam Comprehensive Medical Decision Making High Complexity Diagnoses Altered mental status R41.82 Liver disease K76.9 Goals of care, counseling/discussion Z71.89 Protein calorie malnutrition E46 Physical deconditioning R53.81 Alcohol abuse with withdrawal F10.139 COPD with acute exacerbation J44.1 Hypercapnic respiratory failure J96.92 CO2 narcosis R06.89 Staphylococcal pneumonia J15.20 MRSA bacteremia R78.81; B95.62 Time Spent (min) 45
[2022-11-22] MEDS: vancomycin 1,000 MG in sodium chloride 0.9% 250 ML 250 MG IV (20:14)
--- NOTE | 2022-11-22 20:59 | PC.NURSE ---
Dr. Constantino at bedside. Calling patients mother for consent for ALE. Verbal order given to pause tube feeds at midnight for procedure.
[2022-11-23] VITALS (99 sets, daily range): BP systolic 95–183; BP diastolic 60–130; PULSE 50–112; RESP 10–26; TEMP 36.6–37.1; O2SAT 91–100
[2022-11-23] MEDS: albuterol 2.5 mg/3 mL Neb INHALATION ×6 (00:02→20:20)
[2022-11-23] MEDS: ipratropium 0.5 mg/2.5 mL Neb INHALATION ×6 (00:02→20:21)
[2022-11-23] MEDS: piperacillin-tazobactam 3.375 GM in sodium chloride 0.9% (plus) 50 ML IV ×2 (01:06→09:59)
[2022-11-23] MEDS: enoxaparin 60 mg/0.6 mL Syringe 50 MG SUBCUT ×2 (01:07→13:12)
--- NOTE | 2022-11-23 01:47 | PC.NURSE ---
Tube feed stopped and flushed with 200ml at [address] Constantino order.
[2022-11-23] MEDS: chlorhexidine gluconate 4% Btl 118 mL 1 APPLIC TOPICAL (02:49)
[2022-11-23] MEDS: dexmedetomidine 400 MCG in sodium chloride 0.9% (100 ml) 100 ML IV (04:10)
[2022-11-23 05:55] LABS: ABG PCO2 46.5 mmHg (35-45); HCO3 ABG 28.5 mmol/L (22-26); Oxygen Saturation ABG 97.3; PO2 ABG 87.2 mmHg (80.0-100.0); Potassium Level - ABG 3.7 mmol/L (3.5-5.0)
[2022-11-23 05:56] LABS: Blood Gas Allen Test pos; Oxygen Device vent
[2022-11-23 05:57] LABS: Alveolar-Arterial Oxygen Gradi 26.7 mmHg (5-10); Carboxyhemoglobin 1.3 %THgb (0.4-20.1); HGB O2 Sat 95.3 % (95-100); Ionized Calcium Level - ABG 1.2 mmol/L (1.1-1.4); Total Hemoglobin 12.1 g/dL (14-18)
[2022-11-23 05:58] LABS: Methemoglobin 0.8 % (0.4-1.5)
[2022-11-23] MEDS: propofol 1,000 MG/100 ML INJ 15.68 MG IV ×3 (06:01→16:55)
[2022-11-23] MEDS: pantoprazole 40 mg SDV IVP ×2 (06:01→16:55)
[2022-11-23] MEDS: budesonide 0.5 mg/2 mL Neb INHALATION ×2 (07:52→20:20)
--- NOTE | 2022-11-23 08:45 | W.PM.OPSUD ---
Surgery/Procedure H&P Update DATE OF PROCEDURE: November 23, 2022 DATE H&P PERFORMED: 11/22/22 H&P UPDATE INFORMATION: I have reviewed H&P completed within last 30 days, I have examined patient prior to procedure and No changes to prior documentation PREOP DIAGNOSIS: MRSA bactermia/rule out endocarditis PRIMARY INDICATION FOR PROCEDURE: MRSA bactermia/rule out endocarditis PLANNED PROCEDURE: Transesophageal echocardiogram Patient is intubated and sedated.
[2022-11-23 08:56] LABS: Basophils % 0.1 %; Hematocrit 32.3 % (42.0-52.0); Hemoglobin 10.2 g/dL (11.7-16.6); Lymphocytes # 0.5 10^3/uL (0.8-4.8); Lymphocytes % 5.8 %; Mean Corpuscular HGB Conc 31.6 g/dL (30.0-36.0); Mean Corpuscular Hemoglobin 34.7 pg (28.0-34.0); Mean Corpuscular Volume 109.9 fl (80-94); Monocytes # 0.5 10^3/uL (0.2-0.9); Monocytes % 6.2 %; Neutrophils # 7.17 10^3/uL (1.8-7.7); Nucleated Red Blood Cells % 0 %; Platelet Count 110 10^3/cmm (130-400); Red Blood Count 2.94 10^6/uL (4.1-5.3); Red Cell Distribution Width 12.8 % (12.1-15.1); White Blood Count 8.3 10^3/uL (4.0-10.0)
[2022-11-23 09:14] LABS: Blood Urea Nitrogen 26 mg/dL (8-23); Calcium 8.6 mg/dL (8.5-10.5); Carbon Dioxide 26 mmol/L (22-29); Chloride 106 mmol/L (98-107); Glomerular Filtration Rate 218.7 mL/min (90-130); Glucose 115 mg/dL (65-115); Osmolality Calculated 292 mOsm/kg (285-295); Sodium 138 mmol/L (136-145)
[2022-11-23 09:21] LABS: Slide Review Slide Review Perform
--- NOTE | 2022-11-23 09:33 | P.PN_ITS ---
Subjective Subjective: ALE could not be performed as patient had significant contracture of the facial limiting mouth opening and bite-block/ ALE probe could not be advanced. Vitals/I&O/Wt Last Vital Signs Temp 98.1 F 11/23/22 00:30 Pulse 52 L 11/23/22 07:52 Resp 12 11/23/22 08:00 BP 142/71 11/23/22 07:15 Pulse Ox 97 11/23/22 07:56 O2 Del Method 11/23/22 07:52 O2 Flow Rate 2 11/18/22 20:59 FiO2 2 11/23/22 08:00 11/22/22 11/23/22 11/23/22 22:59 06:59 14:59 Intake Total 2094.768 / 2285.518 511.472 / 2796.990 Output Total 500 / 500 525 / 1025 Balance 1594.768 / 1785.518 -13.528 / 1771.990 Weight last 48 hrs Weight 133 lb 6.075 oz Weight 131 lb 2.801 oz Physical Exam Narrative: GENERAL: Sedated and intubated NECK: No jugular vein distension. [] HEENT: No cyanosis. No icterus. No pallor. [] HEART: Regular S1 and S2. No murmur, rub or gallop. [] LUNGS: Clear to auscultate bilaterally. [] ABDOMEN: Soft EXTREMITIES: Lower extremities with 1+ edema bilaterally Urinary Catheter Management: Carmichael: Cath Placed During This Visit: yes Reason for Continuing Indwelling Catheter: Accurate Measurement of Urinary Output in Critically Ill Patients Urinary Catheter Date of Insertion: 11/17/22 Urinary Catheter Time of Insertion: 22:19 Data 11/23/22 08:15 11/23/22 08:15 Micro: Microbiology 11/21/22 14:00 Urine Culture - Final Urine Catheterized 11/20/22 11:35 Gram Stain - Final Sputum - Endotracheal Tube Aspirate Sputum Culture - Preliminary Coag positive Staphylococcus A&P Assessment and plan (1) MRSA bacteremia: (2) Staphylococcal pneumonia: (3) Altered mental status: (4) Liver disease: (5) Atrial flutter: Plan We attempted transesophageal echocardiogram however bite block/ALE probe could not be advanced because of facial muscle contracture and inability to open patient's mouth. Can get ID recommendations regarding the need of ALE. If they have definite recommendation regarding ALE, we can reattempt with anesthesia team carey otoole. Other option is to empirically treating patient, his blood cultures from 11/20 are so far negative, we can follow these.Patient not in septic shock. No history of IV drug abuse. Thank you for involving us with care of this patient. We will continue to follow. Please call with questions. Attestations Medical Necessity Statement*: Care expected to cross 2 midnights. Coding Level of Care Code Acute Code for [facility] Diagnoses MRSA bacteremia R78.81; B95.62 Staphylococcal pneumonia J15.20 Altered mental status R41.82 Liver disease K76.9 Atrial flutter I48.92
[2022-11-23] MEDS: metoprolol tartrate 50 mg Tablet 25 MG PO ×2 (09:59→16:54)
[2022-11-23] MEDS: folic acid 1 mg Tablet PO (09:59)
[2022-11-23] MEDS: multivitamin therapeutic Tablet 1 TAB PO (09:59)
[2022-11-23] MEDS: collagenase oint 30 gm 1 APPLIC TOPICAL (10:02)
--- NOTE | 2022-11-23 11:29 | P.PN_ITS ---
Subjective Subjective: Transesophageal echo could not be completed because of contracture of jaw muscles, procedure was aborted Patient will need LTAC placement with 6 to 8 weeks of IV antibiotics At baseline poor functional status Care is guarded prognosis Repeat cultures negative to date Vitals/I&O/Wt Last Vital Signs Temp 98.1 F 11/23/22 00:30 Pulse 98 11/23/22 11:17 Resp 10 L 11/23/22 11:17 BP 121/71 11/23/22 11:15 Pulse Ox 99 11/23/22 11:17 O2 Del Method 11/23/22 11:17 O2 Flow Rate 2 11/18/22 20:59 FiO2 24 11/23/22 11:17 11/22/22 11/23/22 11/23/22 22:59 06:59 14:59 Intake Total 2094.768 / 2285.518 511.472 / 2796.990 51 / 51 Output Total 500 / 500 525 / 1025 Balance 1594.768 / 1785.518 -13.528 / 1771.990 51 / 51 Weight last 48 hrs Weight 60.5 kg Weight 59.5 kg Physical Exam Narrative: Patient is showing signs of fluid overload extremities edema noted Swelling of left leg improved Unstageable ulcer of left leg No signs of crepitation No signs of vascular compromise Black eschar present on left leg chavez area Covered with Santyl dressing No active crackles on lung auscultation Bradycardic which improved to 80s with atrial flutter/sinus intermittent rhythm Abdomen soft bowel sounds sluggish Eyes are open however not able to follow directions Urinary Catheter Management: Carmichael: Cath Placed During This Visit: yes Reason for Continuing Indwelling Catheter: Accurate Measurement of Urinary Output in Critically Ill Patients Urinary Catheter Date of Insertion: 11/17/22 Urinary Catheter Time of Insertion: 22:19 Data 11/23/22 08:15 11/23/22 08:15 Micro: Microbiology 11/21/22 14:00 Urine Culture - Final Urine Catheterized 11/20/22 11:35 Gram Stain - Final Sputum - Endotracheal Tube Aspirate Sputum Culture - Preliminary Coag positive Staphylococcus A&P Assessment and plan (1) MRSA bacteremia: (2) Staphylococcal pneumonia: (3) Unstageable decubitus ulcer: (4) CO2 narcosis: (5) Hypercapnic respiratory failure: (6) Altered mental status: (7) Liver disease: (8) Atrial flutter: (9) Protein calorie malnutrition: (10) Muscular deconditioning: (11) Physical deconditioning: (12) Alcohol abuse with withdrawal: (13) Cellulitis: Plan MRSA bacteremia: Repeat cultures negative MRSA pneumonia Sepsis: Resolved Plan to extubate him today if he passes weaning trial Not a good candidate for ALE because of jaw muscle contracture We will need vancomycin 1 g daily for next 4 weeks Will need LTAC placement Patient has poor functional status at baseline Getting central dressing change daily basis of left unstageable leg ulcer Care is guarded prognosis Dietary consultation for moderate protein calorie malnourishment with physical deconditioning Will discontinue tube feeding once he is extubated Atrial flutter, Lovenox was held in observation of ALE, will resume At home he was taking rivaroxaban No documented history of alcohol-related variceal bleed Family updated Attestations Medical Necessity Statement*: Continue ICU management Time Spent in Patient Care: 40 Coding Level of Care Code Acute Code for [facility] Diagnoses MRSA bacteremia R78.81; B95.62 Staphylococcal pneumonia J15.20 Unstageable decubitus ulcer L89.95 CO2 narcosis R06.89 Hypercapnic respiratory failure J96.92 Altered mental status R41.82 Liver disease K76.9 Atrial flutter I48.92 Protein calorie malnutrition E46 Muscular deconditioning R29.898 Physical deconditioning R53.81 Alcohol abuse with withdrawal F10.139 Cellulitis L03.90
--- NOTE | 2022-11-23 11:31 | PC.RESP ---
VENT CHANGED TO VC/SIMV RR 10, VT 450, 10/5 AND 24%, BEDSIDE VERBAL ORDER PER DR DATAR
--- NOTE | 2022-11-23 12:05 | PC.CHAP ---
Pastoral Care Encounter/Spiritual Assessment Type of Contact [] Declined boiler tender visit [] Patient/Family/Request visit [] Outpatient visit [] Follow-up visit [] Physician referral [] Code/Alert [x] Routine visit [] Staff referral [] Actively dying [x] Patient sleeping [] Family support [] [] Out of room [] Palliative care [] [x] Receiving care in room [] Pre-surgical visit [] Trauma [] Long length of stay [x] ICU visit [] Other: Relational/Emotional Strength [] Patient feels connected with others/family/visitors/staff [] Distress [] Loneliness/isolation [] Abandonment Spirituality of Patient [] Person of Mena [] Attends Episcopal of their Mena [] Believes in Prayer [] Reads Bible or Jew materials [] There are Spiritual issues to be addressed Healthcare Recruiter Interventions [x] Prayer [] Active listening [] Non-anxious presence [] Spiritual/emotional support [] Crisis/trauma care [] Spiritual counseling [] Bereavement support [] Provided bereavement packet [] Provided Bible/devotional materials [] Provided toy/stuffed animal, coloring book to patient or family member [] Provided Communion [] Anointing/[place] [] Salvation [x] Completed spiritual assessment [] Other: Impact on Illness or Injury [] Angry [] Fearful [] Anxious [] Often cries [] Exhaustion [] Unable to work [] Unable to attend denominational [] Unable to walk/stand [] Unable to read [] Unable to drive [] Unable to eat/drink [] Unable to sleep [] Unable to be with family [] Patient intubated [] Other: Summary Time spent with patient
[2022-11-23 12:55] LABS: ABG PCO2 48.3 mmHg (35-45); ABG PH Result 7.38 (7.35-7.45); Arterial Blood Gas Hematocrit 33.1 % (42-52); Base Excess ABG 2.6 mmol/L (-2.0-2.0); Blood Gas Allen Test Pos; Blood Gas Operator Identificat MONRO; Blood Gas Sample Site Radial, left; Blood Gas Sample Type Arterial; Blood Gas Tidal Volume 0.45; Carboxyhemoglobin 1.3 %THgb (0.4-20.1); Fractionated Inspired Oxygen 0.2 %; HCO3 ABG 28.4 mmol/L (22-26); HGB O2 Sat 95.2 % (95-100); Ionized Calcium Level - ABG 1.2 mmol/L (1.1-1.4); Methemoglobin 0.3 % (0.4-1.5); Oxygen Device VENT; Oxygen Saturation ABG 96.8; Potassium Level - ABG 3.8 mmol/L (3.5-5.0); Total Hemoglobin 10.8 g/dL (14-18)
[2022-11-23] MEDS: FUROsemide 10 mg/mL SDV 2mL 20 MG IVP (13:12)
[2022-11-23] MEDS: gabapentin 100 mg Capsule PO (16:55)
--- NOTE | 2022-11-23 16:56 | PC.NURSE ---
Summary Pt did not do well on weaning trial today. Pt had decreased tidal volume and was not following commands. Pt placed back on sedation and taken off pressure support and switched back to SIMV. Pt's family has been at bedside throughout the shift. Urine is clear with some small amount of sediment in the bag. Dressing CDI.
[2022-11-23] MEDS: vancomycin 1,000 MG in sodium chloride 0.9% 250 ML 250 MG IV (19:57)
--- NOTE | 2022-11-23 23:42 | P.PN_ITS ---
Subjective Subjective: Seen at bedside multiple times today Tapered off Versed 24 hours ago-currently on fentanyl 25, low-dose propofol- opens eyes but does not follow commands Did not tolerate the pressure support ventilation We will put him on SIMV and give more time for sedation to wear off If no meaningful mentation in next 24 hours-we will proceed with CT head No fever spikes, WBC nicely trending down, Other labs and imaging reviewed Medications: Reviewed: Yes Vitals/I&O/Wt Last Vital Signs Temp 98.7 F 11/23/22 16:00 Pulse 79 11/23/22 22:30 Resp 12 11/23/22 23:13 BP 107/66 11/23/22 22:30 Pulse Ox 95 11/23/22 23:13 O2 Del Method 11/23/22 22:30 O2 Flow Rate 2 11/18/22 20:59 FiO2 24 11/23/22 23:13 11/23/22 11/23/22 11/24/22 14:59 22:59 06:59 Intake Total 151 / 151 596.998 / 747.998 361.675 / 1109.673 Output Total 900 / 900 Balance 151 / 151 -303.002 / -152.002 361.675 / 209.673 Weight last 48 hrs Weight 133 lb 6.075 oz Weight 131 lb 2.801 oz Physical Exam Narrative: PHYSICAL EXAM: General: lying in bed, sedated and intubated. 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 SKIN: no rash Urinary Catheter Management: Carmichael: Cath Placed During This Visit: yes Reason for Continuing Indwelling Catheter: Accurate Measurement of Urinary Output in Critically Ill Patients Urinary Catheter Date of Insertion: 11/17/22 Urinary Catheter Time of Insertion: 22:19 Data 11/23/22 08:15 11/23/22 08:15 Other Labs: Radiology Impressions Chest/Abdomen/Pelvis CT 11/17/22 18:59 IMPRESSION: 1. No pulmonary embolus. The 2. Centrilobular emphysema. Mild diffuse peribronchial thickening. No consolidation. IMPRESSION: 1. Distended urinary bladder. Urinary retention should be considered in the adequate clinical setting. Otherwise no acute intra-abdominal or intrapelvic pathology. 2. Cirrhotic liver. Foot CT 11/17/22 21:59 IMPRESSION: 1. No evidence of fracture, focal bone destruction, or soft tissue gas to suggest necrotizing fasciitis. 2. Mid to distal foot subcutaneous edema/cellulitis. If there is concern for early osteomyelitis, an MRI would be more sensitive. 3. Chronic findings above with vascular calcifications and DJD. Lower Extremity CT 11/17/22 21:59 IMPRESSION: 1. No evidence of fracture, focal bone destruction, or soft tissue gas to suggest necrotizing fasciitis. 2. Diffuse lower leg subcutaneous edema/cellulitis with a few chavez skin ulcerations. No definite or sizable abscess on this unenhanced exam. If there is concern for early osteomyelitis, an MRI would be more sensitive. 3. Chronic findings above with vascular calcifications and DJD. Head CT 11/18/22 12:47 IMPRESSION: No acute intracranial abnormality. Chest X-Ray 11/21/22 09:13 IMPRESSION: There are emphysematous changes in the lungs, similar to the prior study. No evidence for acute cardiopulmonary disease. Laboratory Results WBC 12.2 10^3/uL (4.0-10.0) H 11/24/22 05:32 Corrected WBC Cancelled 11/22/22 03:22 RBC 3.14 10^6/uL (4.1-5.3) L 11/24/22 05:32 Hgb 10.9 g/dL (11.7-16.6) L 11/24/22 05:32 Hct 32.8 % (42.0-52.0) L 11/24/22 05:32 MCV 104.5 fl (80-94) H 11/24/22 05:32 MCH 34.7 pg (28.0-34.0) H 11/24/22 05:32 MCHC 33.2 g/dL (30.0-36.0) D 11/24/22 05:32 RDW 12.3 % (12.1-15.1) 11/24/22 05:32 Plt Count 114 10^3/cmm (130-400) L 11/24/22 05:32 MPV 13.0 fL (7.4-10.4) H 11/24/22 05:32 Gran % Cancelled 11/22/22 03:22 Neut % (Auto) 87.3 % 11/24/22 05:32 Lymph % (Auto) 4.3 % 11/24/22 05:32 Dickey % (Auto) 4.3 % 11/24/22 05:32 Eos % (Auto) 0.0 % 11/24/22 05:32 Baso % (Auto) 0.2 % 11/24/22 05:32 Neut # (Auto) 10.69 10^3/uL (1.8-7.7) H 11/24/22 05:32 Lymph # (Auto) 0.5 10^3/uL (0.8-4.8) L 11/24/22 05:32 Dickey # (Auto) 0.5 10^3/uL (0.2-0.9) 11/24/22 05:32 Eos # (Auto) 0.0 10^3/uL (0.0-0.8) 11/24/22 05:32 Baso # (Auto) 0.0 10^3/uL (0.0-0.1) 11/24/22 05:32 Absolute Gran (auto) Cancelled 11/22/22 03:22 Nucleated RBC % (auto) 0 % 11/24/22 05:32 Total Counted 100 (0-100) 11/17/22 17:05 Atypical Lymphs % 3.0 % (0-5) 11/17/22 17:05 Absolute Neutrophils 27.8 10^3/cmm (1.4-6.5) H 11/17/22 17:05 Segmented Neutrophils 67 % 11/17/22 17:05 Abs Segm Neuts (Man) 20.4 10/cmm (1.6-7.1) H 11/17/22 17:05 Band Neutrophils 24.0 % 11/17/22 17:05 Abs Band Neuts (Man) 7.3 10^3/cmm (0.0-1.2) H 11/17/22 17:05 Absolute Lymphocytes 2.1 10^3/cmm (1.2-3.4) 11/17/22 17:05 Lymphocytes (Manual) 4 % 11/17/22 17:05 Monocytes (Manual) 2.0 % 11/17/22 17:05 Absolute Monocytes 0.6 10^3/cmm (0.1-0.6) 11/17/22 17:05 Eosinophils (Manual) 0 % 11/17/22 17:05 Absolute Eosinophils 0.0 10^3/cmm (0.0-0.7) 11/17/22 17:05 Basophils (Manual) 0.0 % 11/17/22 17:05 Absolute Basophils 0.0 10^3/cmm (0.0-0.2) 11/17/22 17:05 Nucleated RBCs # 0.0 /100WBC 11/24/22 05:32 Platelet Estimate Normal (Normal) 11/17/22 17:05 Giant Platelets 1+ H 11/17/22 17:05 Dimorphic RBCs 4+ H 11/17/22 17:05 Polychromasia 3+ H 11/17/22 17:05 Hypochromasia 1+ H 11/17/22 17:05 Poikilocytosis 4+ H 11/17/22 17:05 Anisocytosis 4+ H 11/17/22 17:05 Microcytosis 4+ H 11/17/22 17:05 Macrocytosis 4+ H 11/17/22 17:05 Spherocytes 4+ 11/17/22 17:05 Tear Drop Cells 3+ 11/17/22 17:05 [place] Cells 4+ H 11/17/22 17:05 Acanthocytes (Spur) 1+ H 11/17/22 17:05 Schistocytes 3+ H 11/17/22 17:05 ESR 13 mm/hr (0-10) H 11/17/22 22:16 PT 12.50 SECONDS (12.1-14.9) 11/17/22 22:16 INR 0.90 (0.8-1.2) 11/17/22 22:16 APTT 28.4 SECONDS (23.9-36.7) 11/17/22 22:16 Fibrinogen 539 mg/dL (174-498) H 11/17/22 22:16 Fibrin Degrad Products Pos, 10-40 ug/mL (NEG) H 11/17/22 22:16 D-Dimer 3.46 ug/mIFEU (0-0.59) H 11/17/22 22:16 Specimen Type Arterial 11/24/22 04:46 Sample Site Brachial, right 11/24/22 04:46 ABG pH 7.41 (7.35-7.45) 11/24/22 04:46 ABG pCO2 47.2 mmHg (35-45) H 11/24/22 04:46 ABG pO2 75.0 mmHg (80.0-100.0) L 11/24/22 04:46 ABG HCO3 29.7 mmol/L (22-26) H 11/24/22 04:46 ABG O2 Saturation 96.8 11/23/22 12:43 ABG Base Excess 4.2 mmol/L (-2.0-2.0) H 11/24/22 04:46 Catalino Test N/a 11/24/22 04:46 A-a O2 Gradient Not Reportable 11/23/22 12:43 Hematocrit 35.9 % (42-52) L 11/24/22 04:46 Hgb O2 Saturation 95.2 % (95-100) 11/23/22 12:43 Carboxyhemoglobin 1.3 %THgb (0.4-20.1) 11/23/22 12:43 Methemoglobin 0.3 % (0.4-1.5) L 11/23/22 12:43 Total Hemoglobin 10.8 g/dL (14-18) L 11/23/22 12:43 Sodium 142.0 mmol/L (131-143) 11/23/22 12:43 Potassium 3.8 mmol/L (3.5-5.0) 11/23/22 12:43 Glucose 119.0 mg/dL (70-115) H 11/23/22 12:43 Ionized Calcium 1.2 mmol/L (1.1-1.4) 11/23/22 12:43 Respiration Rate 12.0 % 11/23/22 05:10 O2 Delivery Device Vent 11/24/22 04:46 O2 Liters/Min 3.0 % 11/17/22 16:58 Vent Mode vc/ac 11/23/22 05:10 FiO2 24.0 % 11/24/22 04:46 Tidal Volume 0.45 11/24/22 04:46 PEEP 5.0 cmH20 11/24/22 04:46 Specimen Drawn By jeff 11/23/22 05:10 [employer] ID [email or web address] 11/24/22 04:46 Sodium 139 mmol/L (136-145) 11/24/22 05:32 Potassium 3.8 mmol/L (3.5-5.1) 11/24/22 05:32 Chloride 103 mmol/L (98-107) 11/24/22 05:32 Carbon Dioxide 26 mmol/L (22-29) 11/24/22 05:32 Anion Gap 13.8 (5-19) 11/24/22 05:32 BUN 18 mg/dL (8-23) 11/24/22 05:32 Creatinine 0.3 mg/dL (0.7-1.2) L 11/24/22 05:32 GFR Calculation 304.8 mL/min (90-130) H 11/24/22 05:32 Glucose 99 mg/dL (65-115) 11/24/22 05:32 Estimat Average Glucose 108 11/17/22 17:05 Hemoglobin A1c 5.4 % (4.0-6.0) 11/17/22 17:05 Calculated Osmolality 290 mOsm/kg (285-295) 11/24/22 05:32 Lactic Acid 1.3 mmol/L (0.5-2.2) 11/17/22 17:05 Calcium 8.3 mg/dL (8.5-10.5) L 11/24/22 05:32 Phosphorus 4.6 mg/dL (2.5-4.5) H 11/17/22 22:16 Magnesium 2.5 mg/dL (1.7-2.3) H 11/22/22 03:22 Total Bilirubin 0.4 mg/dL (0.15-1.2) 11/22/22 03:22 AST 15 U/L (0-40) 11/22/22 03:22 ALT 9 U/L (0-41) 11/22/22 03:22 Alkaline Phosphatase 75 U/L (40-130) 11/22/22 03:22 Ammonia 55 umol/L (16-60) 11/20/22 12:33 Creatine Kinase 69 U/L (39-308) 11/17/22 22:16 Troponin T Baseline 19 ng/L (0-15) H 11/17/22 22:16 Troponin T 120 Minute 18.39 ng/L (0-15) H 11/17/22 23:46 Delta Troponin T -0.61 ABS# (0-10) L 11/17/22 23:46 Troponin T Hi Sens 6Hr 16.18 ng/L (0-15) H 11/18/22 04:00 Troponin T Hi Sens 6Hr Delta -2.82 ng/L (0-12) L 11/18/22 04:00 C-Reactive Protein 101.3 mg/L (0.0-4.9) H 11/17/22 17:05 NT-Pro-B Natriuret Pep 2405 pg/mL (0-125) H 11/18/22 04:00 Total Protein 7.1 g/dL (6.6-8.7) 11/22/22 03:22 Albumin 2.8 g/dL (3.5-5.2) L 11/22/22 03:22 Globulin 4.3 g/dL (1.3-4.6) 11/22/22 03:22 Lipase 9 U/L (13-60) L 11/17/22 22:16 Vitamin B12 896 pg/mL (232-1245) 11/17/22 22:16 Folate 8.6 ng/mL (4.5-32.2) 11/17/22 17:05 Procalcitonin 1.59 ng/mL (0-0.5) H 11/17/22 17:05 TSH 0.30 uIU/mL (0.27-4.20) 11/17/22 22:16 Random Cortisol 29.34 ug/dL (2.47-19.5) H 11/17/22 17:05 Random Cortisol Cancelled 11/17/22 17:05 Urine Color Yellow (Yellow) 11/17/22 22:16 Urine Appearance Clear (CLEAR) 11/17/22 22:16 Urine pH 5 (5-7) 11/17/22 22:16 Ur Specific [place] 1.015 (1.005-1.030) 11/17/22 22:16 Urine Protein Neg (Negative) 11/17/22 22:16 Urine Glucose (UA) Norm (Normal) 11/17/22 22:16 Urine Ketones Negative (Negative) 11/17/22 22:16 Urine Blood Neg (Negative) 11/17/22 22:16 Urine Nitrate Negative (Negative) 11/17/22 22:16 Urine Bilirubin 2+ (Negative) H 11/17/22 22:16 Urine Urobilinogen Norm mg/dL (Negative) 11/17/22 22:16 Ur Leukocyte Esterase Negative (Negative) 11/17/22 22:16 Vancomycin Trough 6.0 ug/mL (10-15) L 11/21/22 17:00 Urine Opiates Screen Negative ng/mL (Negative) 11/17/22 22:16 Ur Barbiturates Screen Negative ng/mL (Negative) 11/17/22 22:16 Ur Phencyclidine Scrn Negative ng/mL (Negative) 11/17/22 22:16 Ur Amphetamines Screen Negative ng/mL (Negative) 11/17/22 22:16 U Benzodiazepines Scrn Negative ng/mL (Negative) 11/17/22 22:16 Urine Cocaine Screen Negative ng/mL (Negative) 11/17/22 22:16 U Marijuana (THC) Screen Negative ng/mL (Negative) 11/17/22 22:16 Ethyl Alcohol < 10 mg/dL (0-10) 11/17/22 22:16 Hepatitis A IgM Ab Non-reactive (Nonreactive) 11/17/22 17:05 Hep Bs Antigen Non-reactive (Nonreactive) 11/17/22 17:05 Hep B Core IgM Ab Non-reactive (Nonreactive) 11/17/22 17:05 Hepatitis C Antibody Non-reactive (Nonreactive) 11/17/22 17:05 HIV 1&2 Ab & HIV 1 Ag Non-reactive (Non-Reactiv) 11/17/22 17:05 HIV 1&2 Antibody Non-reactive (Non-Reactiv) 11/17/22 17:05 Influenza Type A Ag negative (Negative) 11/17/22 17:17 Influenza Type B Ag negative (Negative) 11/17/22 17:17 SARS-CoV-2 Ag (Rapid) Negative (Negative) 11/17/22 17:17 Micro: Microbiology 11/20/22 11:35 Gram Stain - Final Sputum - Endotracheal Tube Aspirate Sputum Culture - Final Methicillin Resis Staph Aureus 11/21/22 14:00 Urine Culture - Final Urine Catheterized A&P Assessment and plan (1) Altered mental status: (2) Liver disease: (3) Goals of care, counseling/discussion: (4) Protein calorie malnutrition: (5) Physical deconditioning: (6) Alcohol abuse with withdrawal: (7) COPD with acute exacerbation: (8) Hypercapnic respiratory failure: (9) CO2 narcosis: (10) Staphylococcal pneumonia: (11) MRSA bacteremia: Plan #Altered mental status-multifactorial in patient with underlying COPD/cirrhosis/sepsis/hypernatremia/alcohol withdrawal -CO2 narcosis-intubated 11/20/2022 to protect airway and for hypercapnia-on mechanical ventilator-we will follow-up with ABGs to adjust settings -Hypernatremia-on free water through PEG tube-improved -CT head 11/18/2022 no acute abnormalities -Patient on CIWA protocol-multivitamins/folic acid/thiamine-no signs of withdrawal-off Versed for more than 24 hours -Ammonia 55 -Sepsis encephalopathy-currently on vancomycin for MRSA bacteremia/staph pneumonia-being treated with vancomycin and his temperature curve/WBC are better -Held Precedex for bradycardia, tapered off fentanyl-patient opens eyes but does not follow commands -We will continue with awakening trials -If there is no improvement we will repeat CT head in 24 hours #COPD exacerbation most likely secondary to staph pneumonia -ABG showing hypercapnia-intubated; ABG today 7.3 8/48/87/20 8/96% on CMV 450/5/20 4% FiO2 -Continue scheduled nebulizations and IV steroids and taper based on clinical response #Sepsis-likely MRSA bacteremia-cellulitis from left lower leg from previous trauma -Chemical debridement as per surgery -Blood cultures on admission showed for 4/4 bottles MRSA; repeat blood cultures sent on 11/20/2021-negative so far -Sputum culture 05/20/2022-coagulase positive staph-suspect staph pneumonia -Patient is on vancomycin, Zosyn- -Monitor fever curve, WBC counts of all cultures to adjust antibiotics-patient currently able to maintain blood pressure without pressors -Transthoracic echo did not show any vegetations #Liver cirrhosis -Monitor LFTs #Improving BUN and hypernatremia -Likely secondary to dehydration -Currently receiving free water through NG tube -Monitor closely renal functions #Severe protein energy malnutrition -Continue feeding DVT #Goals of care discussion -Discussed with patient's sister at bedside-currently we are trying to do awakening trials and if there is no significant response-we will repeat CT head -I have mentioned that we intubated and there were several reasons for his altered mental status-including hypercapnia/hyponatremia/sepsis and our goal is to treat reversible conditions and see how patient responds.? If he does not improve in the next 48 to 72 hours-we will update family about his prognosis and they can make decisions at that time.? Both sister and mother agreed with the plan ICU CHECKLIST: Problem list updated Verbal orders reviewed and signed Analgesia: Fentanyl Glycemic Control: N/A Nutrition: Jevity at 20 cc/hour Restraint Renewal (within 24 hrs): Yes Ulcer Prophylaxis: Yes PPI Chemical Thromboprophylaxis: Prophylaxis: Lovenox Mechanical Thromboprophylaxis: SCD Need for Central line: N/A Need for Carmichael catheter: Yes Critical Care Time (No Overlap): 45 min Attestations Medical Necessity Statement*: COPD exacerbation secondary to staph pneumonia and patient with MRSA bacteremia-currently intubated-plan is to extubate in next 24 to 48 hours Time Spent in Patient Care: Greater than 35 minutes (>than 50% of time spent in counselling and/or direct pt care on unit) . Critical Care Time: The high probability of a clinically significant, sudden or life threatening deterioration of the patient's? [neurological/pulmonary/infectious/renal]?system(s)? which requires the highest level of physician preparedness to intervene urgently.? I managed/supervised life or organ supporting interventions that required frequent physician assessment.?my full and direct attention, intervention and personal management in the ICU to the direct care of this patient for the period of time indicated above.? Time I spent with family or surrogate(s) is included only if the patient was incapable of providing necessary information or participating in decision making.? Time devoted to teaching and to any procedures I billed separately is not included. Services Provided: Telemetry review Mechanical Ventilation Hemodynamic interpretation, assessment and management Review and interpretation of CXR Review and interpretation of lab values Review and interpretation of microbiologic data and culture results Review of medications and administration Review and interpretation of Nutrition requirements and management Discussion of management with other consultants and services Clinical update to family members [x] Data and vital sign review and interpretation [x] Patient assessment, examination and intervention [x] Documentation [x] Medication orders and management Critical Care Time (min): 45 Coding Level of Care Code Established Pt Acute Code for Chg Fwd Patient Type Established History Comprehensive Exam Comprehensive Medical Decision Making High Complexity Diagnoses Altered mental status R41.82 Liver disease K76.9 Goals of care, counseling/discussion Z71.89 Protein calorie malnutrition E46 Physical deconditioning R53.81 Alcohol abuse with withdrawal F10.139 COPD with acute exacerbation J44.1 Hypercapnic respiratory failure J96.92 CO2 narcosis R06.89 Staphylococcal pneumonia J15.20 MRSA bacteremia R78.81; B95.62 Time Spent (min) 45
[2022-11-24] VITALS (106 sets, daily range): BP systolic 106–198; BP diastolic 61–130; PULSE 56–119; RESP 10–26; TEMP 36.6–37.3; O2SAT 93–100
--- NOTE | 2022-11-24 | XR_ITS ---
WS: [id number] Exam: XR chest 1V [id number] Date/Time of Exam: 11/24/2022 12:00 AM Reason For Exam: PICC LINE Repeat chest x-ray on the same day was obtained at 1151 hours and compared to the study performed at 1147 hours. Previously noted right-sided PICC line has been repositioned. The loop has been corrected and the leanne e ends in the lower one third of the SVC in good position. The lungs remain clear and fully inflated. ET tube and enteric tube both remain in satisfactory position. No other changes since the earlier ex am. XR/XR chest 1V [id number] IMPRESSION: 1. Right-sided PICC line has been repositioned and now ends in the lower one th ird of the SVC in satisfactory position. No other change in the appearance of t he chest since the most recent exam.
[2022-11-24] MEDS: propofol 1,000 MG/100 ML INJ 13.93 MG IV (00:19)
[2022-11-24] MEDS: enoxaparin 60 mg/0.6 mL Syringe 50 MG SUBCUT ×2 (00:19→12:28)
[2022-11-24] MEDS: albuterol 2.5 mg/3 mL Neb INHALATION ×6 (03:23→20:26)
[2022-11-24] MEDS: ipratropium 0.5 mg/2.5 mL Neb INHALATION ×6 (03:23→20:26)
[2022-11-24] MEDS: dexmedetomidine 400 MCG in sodium chloride 0.9% (100 ml) 100 ML IV (03:25)
[2022-11-24] MEDS: chlorhexidine gluconate 4% Btl 118 mL 1 APPLIC TOPICAL (03:26)
[2022-11-24] MEDS: pantoprazole 40 mg SDV IVP ×2 (04:54→17:00)
[2022-11-24 05:12] LABS: Blood Gas Operator Identificat JB; Blood Gas Sample Site Brachial, right; Blood Gas Sample Type Arterial; Blood Gas Tidal Volume 0.45; Oxygen Device VENT
[2022-11-24 05:32] LABS: ABG PCO2 47.2 mmHg (35-45); ABG PH Result 7.41 (7.35-7.45); Arterial Blood Gas Hematocrit 35.9 % (42-52); Base Excess ABG 4.2 mmol/L (-2.0-2.0); HCO3 ABG 29.7 mmol/L (22-26)
[2022-11-24 05:49] LABS: Basophils % 0.2 %; Hematocrit 32.8 % (42.0-52.0); Hemoglobin 10.9 g/dL (11.7-16.6); Lymphocytes # 0.5 10^3/uL (0.8-4.8); Lymphocytes % 4.3 %; Mean Corpuscular HGB Conc 33.2 g/dL (30.0-36.0); Mean Corpuscular Hemoglobin 34.7 pg (28.0-34.0); Mean Corpuscular Volume 104.5 fl (80-94); Monocytes # 0.5 10^3/uL (0.2-0.9); Monocytes % 4.3 %; Neutrophils # 10.69 10^3/uL (1.8-7.7); Neutrophils % 87.3 %; Nucleated Red Blood Cells % 0 %; Platelet Count 114 10^3/cmm (130-400); Red Blood Count 3.14 10^6/uL (4.1-5.3); Red Cell Distribution Width 12.3 % (12.1-15.1); White Blood Count 12.2 10^3/uL (4.0-10.0)
[2022-11-24 06:20] LABS: Anion Gap 13.8 (5-19); Blood Urea Nitrogen 18 mg/dL (8-23); Calcium 8.3 mg/dL (8.5-10.5); Carbon Dioxide 26 mmol/L (22-29); Chloride 103 mmol/L (98-107); Glomerular Filtration Rate 304.8 mL/min (90-130); Glucose 99 mg/dL (65-115); Osmolality Calculated 290 mOsm/kg (285-295); Potassium 3.8 mmol/L (3.5-5.1); Sodium 139 mmol/L (136-145)
[2022-11-24] MEDS: propofol 1,000 MG/100 ML INJ 15.68 MG IV ×2 (06:20→12:56)
[2022-11-24] MEDS: budesonide 0.5 mg/2 mL Neb INHALATION ×2 (08:37→20:26)
--- NOTE | 2022-11-24 08:53 | XR_ITS ---
WS: [id number] Exam: XR chest 1V portable [id number] Date/Time of Exam: 11/24/2022 11:39 AM Reason For Exam: Post PICC insertion Comparison 11/21/2022. The lungs are clear and hyperinflated. Normal cardiomediastinal silhouette. An ET tube is in place en ding about 3 cm above the lashon in good position. A right-sided PICC line has been placed and is loo ped in the lower one third of the SVC. The tip of the line is directed back cephalad. No pleural effu sions. Bony structures are intact. An enteric tube extends below the level of the diaphragm but the t ip is not visible. XR/XR chest 1V portable [id number] IMPRESSION: 1. Right-sided PICC line looped in the lower one third of the SVC. The tip of t he line is directed back cephalad. 2. ET tube and NG tube in satisfactory location. 3. No acute cardiopulmonary process noted.
[2022-11-24] MEDS: multivitamin therapeutic Tablet 1 TAB PO (09:32)
[2022-11-24] MEDS: metoprolol tartrate 50 mg Tablet 25 MG PO ×2 (09:33→17:00)
[2022-11-24] MEDS: folic acid 1 mg Tablet PO (09:33)
[2022-11-24] MEDS: morphine 4 mg/mL SDV 1 mL 2 MG IVP (09:36)
[2022-11-24] MEDS: collagenase oint 30 gm 1 APPLIC TOPICAL (09:40)
--- NOTE | 2022-11-24 10:25 | PC.RESP ---
pt is not following commands during vacation sedation trial, sedation turned back on per dr datar.
--- NOTE | 2022-11-24 10:44 | PM.PN ---
Subjective Subjective: Plan for CT head today if patient is not waking up after return of sedation Overnight patient required fentanyl and propofol, he was agitated as per nursing staff However not able to follow commands Minimal vent settings Currently on propofol and fentanyl Afebrile No leukocytosis, Adequate urine output with use of Lasix which was given yesterday Is on IV steroids White count 12.2K Vitals/I&O/Wt Last Vital Signs Temp 99.2 F 11/24/22 03:30 Pulse 85 11/24/22 10:15 Resp 10 L 11/24/22 08:45 BP 154/98 11/24/22 10:15 Pulse Ox 95 11/24/22 10:15 O2 Del Method 11/24/22 08:41 O2 Flow Rate 2 11/18/22 20:59 FiO2 24 11/24/22 10:00 11/23/22 11/24/22 11/24/22 22:59 06:59 14:59 Intake Total 608.226 / 759.226 543.890 / 1303.116 75 / 75 Output Total 900 / 900 825 / 1725 Balance -291.774 / -140.774 -281.110 / -421.884 75 / 75 Weight last 48 hrs Weight 61 kg Weight 60.5 kg Physical Exam Narrative: Patient intubated and sedated Extremities are showing signs of improvement of edema skin wrinkling noted Left leg edema improving as well Black eschar covered with Santyl dressing No active drainage Assisted bilateral breath sounds Abdomen soft Carmichael cath draining dilute colored urine Urinary Catheter Management: Carmichael: Cath Placed During This Visit: yes Reason for Continuing Indwelling Catheter: Accurate Measurement of Urinary Output in Critically Ill Patients Urinary Catheter Date of Insertion: 11/17/22 Urinary Catheter Time of Insertion: 22:19 Data 11/24/22 05:32 11/24/22 05:32 Micro: Microbiology 11/20/22 11:35 Gram Stain - Final Sputum - Endotracheal Tube Aspirate Sputum Culture - Final Methicillin Resis Staph Aureus 11/21/22 14:00 Urine Culture - Final Urine Catheterized A&P Assessment and plan (1) MRSA bacteremia: (2) Staphylococcal pneumonia: (3) Unstageable decubitus ulcer: (4) CO2 narcosis: (5) Hypercapnic respiratory failure: (6) Altered mental status: (7) Liver disease: (8) Atrial flutter: (9) Acute encephalopathy: (10) Cellulitis: (11) Muscular deconditioning: (12) Physical deconditioning: Plan COPD exacerbation Respiratory failure requiring mechanical ventilation Patient failed weaning trial yesterday Currently on SIMV with signs of auto PEEP Currently on propofol and fentanyl, we are turning off sedation to assess his mentation today and if he is not able to follow commands or might need to repeat CT head I have increased his thiamine dose to 500 mg yesterday History of alcohol abuse Poor functional status at baseline MRSA bacteremia, resolved Repeat cultures negative Continue vancomycin Patient is being evaluated/screening for LTAC placement Precedex to be titrated off Continue therapeutic Lovenox for atrial flutter Optimize to bleeding, hold off on Lasix today Failed transesophageal echo, patient will need 4 to 6 weeks of IV vancomycin 1 g daily, PICC line placement today Attestations Medical Necessity Statement*: Continue ICU management Time Spent in Patient Care: 30 Coding Level of Care Code Acute Code for [facility] Diagnoses MRSA bacteremia R78.81; B95.62 Staphylococcal pneumonia J15.20 Unstageable decubitus ulcer L89.95 CO2 narcosis R06.89 Hypercapnic respiratory failure J96.92 Altered mental status R41.82 Liver disease K76.9 Atrial flutter I48.92 Acute encephalopathy G93.40 Cellulitis L03.90 Muscular deconditioning R29.898 Physical deconditioning R53.81
--- NOTE | 2022-11-24 11:30 | PC.NURSE ---
Right triple lumen PICC placed in brachial vein without difficulty. Pt sedated and on vent. Verbal consent obtained from patient mother via phone. Time out performed between this nurse and patient care nurseRafaela. 38 cm inserted with 2 cm external cath noted. Mid arm circumference 23 cm measured 10 cm from right AC space. Chest xray confirms tip in distal SVC and ok to use. Dressing due to be changed tomorrow, 11/25/22. Report given to bedside nurseRafaela.
[2022-11-24] MEDS: FUROsemide 10 mg/mL SDV 2mL 20 MG IVP (12:28)
--- NOTE | 2022-11-24 12:42 | PC.SOCIAL ---
IMM Update Patient does not have MCR @ this time. IMM not completed.
--- NOTE | 2022-11-24 13:01 | P.PN_ITS ---
Subjective Subjective: Patient seen and examined. Violet currently working well to chemically debride left lower extremity eschars Vitals/I&O/Wt Last Vital Signs Temp 99.2 F 11/24/22 03:30 Pulse 64 11/24/22 12:30 Resp 10 L 11/24/22 12:00 BP 144/78 11/24/22 12:30 Pulse Ox 96 11/24/22 12:30 O2 Del Method 11/24/22 11:02 O2 Flow Rate 2 11/18/22 20:59 FiO2 24 11/24/22 12:00 11/23/22 11/24/22 11/24/22 22:59 06:59 14:59 Intake Total 608.226 / 759.226 543.890 / 1303.116 175 / 175 Output Total 900 / 900 825 / 1725 Balance -291.774 / -140.774 -281.110 / -421.884 175 / 175 Weight last 48 hrs Weight 134 lb 7.712 oz Weight 133 lb 6.075 oz Physical Exam Narrative: General: Intubated and sedated Extremities: Left lower extremity with 2 decubitus ulcers with overlying es chars. Violet appears to be working well for debridement. No cellulitis Urinary Catheter Management: Carmichael: Cath Placed During This Visit: yes Reason for Continuing Indwelling Catheter: Accurate Measurement of Urinary Output in Critically Ill Patients Urinary Catheter Date of Insertion: 11/17/22 Urinary Catheter Time of Insertion: 22:19 Data 11/24/22 05:32 11/24/22 05:32 Micro: Microbiology 11/20/22 11:35 Gram Stain - Final Sputum - Endotracheal Tube Aspirate Sputum Culture - Final Methicillin Resis Staph Aureus 11/21/22 14:00 Urine Culture - Final Urine Catheterized A&P Assessment and plan (1) Unstageable decubitus ulcer: Plan Santyl and sterile dressings to the left lower extremity decubitus ulcers once daily Medical management per hospitalist General surgery will sign off. Please reconsult if the need arises Attestations Medical Necessity Statement*: Patient requires multiple more nights in the hospital for intensive care related to alcohol withdrawal Coding Level of Care Code Acute Code for Chg Fwd Diagnoses Unstageable decubitus ulcer L89.95
[2022-11-24] MEDS: dexmedetomidine 400 MCG in sodium chloride 0.9% (100 ml) 100 ML 7.74 MCG IV (16:56)
[2022-11-24 18:54] LABS: Vancomycin Trough 6.4 ug/mL (10-15)
[2022-11-24] MEDS: vancomycin 1,000 MG in sodium chloride 0.9% 250 ML 250 MG IV (20:34)
[2022-11-24] MEDS: propofol 1,000 MG/100 ML INJ 10.45 MG IV (21:58)
--- NOTE | 2022-11-24 22:00 | CTR_ITS ---
PROCEDURE INFORMATION: Exam: CT Head Without Contrast Exam date and time: 11/24/2022 11:48 PM Age: 62 years old Clinical indication: Altered mental status/memory loss; Patient HX: Patient remaining unresponsive after stopping sedation meds. ; Additional info: Encephalopathy, TECHNIQUE: Imaging protocol: Computed tomography of the head without contrast. Radiation optimization: All CT scans at this facility use at least one of these dose optimization techniques: automated exposure control; mA and/or kV adjustment per patient size (includes targeted exams where dose is matched to clinical indication); or iterative reconstruction. Other protocol: This patient has received 4 known CTs and 0 known cardiac nuclear medicine studies in the 12 months prior to the current study. COMPARISON: CT head wo con* [id number] 11/18/2022 4:58 PM RADIATION DOSE METRICS: Total DLP (mGy-cm): 1187.48 FINDINGS: Brain: No hemorrhage. No edema. Moderate diffuse cerebral atrophy and mild sequela of chronic small vessel ischemic disease. No mass effect. Cerebral ventricles: No ventriculomegaly. Paranasal sinuses: Mucosal thickening of the right maxillary sinus which appears chronic given osseous hypertrophy of the sinus hutchinson. The rest of the paranasal sinuses are well pneumatized. Mastoid air cells: Visualized mastoid air cells are well aerated. Bones/joints: Unremarkable. No acute fracture. Soft tissues: Unremarkable. CT/CT head wo con* [id number] IMPRESSION: No acute intracranial abnormality.
--- NOTE | 2022-11-24 23:12 | PC.NURSE ---
Spoke to Dr. Echevarria to report elevated blood pressure. Orders for PRN medication received.
[2022-11-25] VITALS (73 sets, daily range): BP systolic 92–192; BP diastolic 53–108; PULSE 66–110; RESP 10–17; TEMP 36.4–36.7; O2SAT 94–100
[2022-11-25] MEDS: ipratropium 0.5 mg/2.5 mL Neb INHALATION ×5 (00:29→15:14)
[2022-11-25] MEDS: albuterol 2.5 mg/3 mL Neb INHALATION ×5 (00:29→15:14)
[2022-11-25] MEDS: enoxaparin 60 mg/0.6 mL Syringe 50 MG SUBCUT ×2 (00:33→12:40)
[2022-11-25] MEDS: hyDRALAzine 20 mg/mL INJ 1 mL 5 MG IVP (01:20)
[2022-11-25] MEDS: chlorhexidine gluconate 4% Btl 118 mL 1 APPLIC TOPICAL (02:28)
[2022-11-25 03:15] LABS: Basophils % 0.2 %; Hematocrit 30.5 % (42.0-52.0); Hemoglobin 9.9 g/dL (11.7-16.6); Lymphocytes # 0.6 10^3/uL (0.8-4.8); Lymphocytes % 5.7 %; Mean Corpuscular HGB Conc 32.5 g/dL (30.0-36.0); Mean Corpuscular Hemoglobin 33.4 pg (28.0-34.0); Mean Platelet Volume 12.7 fL (7.4-10.4); Monocytes # 0.4 10^3/uL (0.2-0.9); Monocytes % 3.6 %; Neutrophils # 9.61 10^3/uL (1.8-7.7); Neutrophils % 88.7 %; Nucleated Red Blood Cells % 0 %; Platelet Count 120 10^3/cmm (130-400); Red Blood Count 2.96 10^6/uL (4.1-5.3); Red Cell Distribution Width 11.9 % (12.1-15.1); White Blood Count 10.8 10^3/uL (4.0-10.0)
[2022-11-25 03:39] LABS: Anion Gap 14.4 (5-19); Blood Urea Nitrogen 15 mg/dL (8-23); Carbon Dioxide 29 mmol/L (22-29); Chloride 100 mmol/L (98-107); Glomerular Filtration Rate 304.8 mL/min (90-130); Glucose 98 mg/dL (65-115); Osmolality Calculated 291 mOsm/kg (285-295); Potassium 3.4 mmol/L (3.5-5.1); Sodium 140 mmol/L (136-145)
[2022-11-25] MEDS: propofol 1,000 MG/100 ML INJ 17.42 MG IV (04:08)
[2022-11-25] MEDS: pantoprazole 40 mg SDV IVP (04:08)
[2022-11-25] MEDS: dexmedetomidine 400 MCG in sodium chloride 0.9% (100 ml) 100 ML 7.74 MCG IV (04:09)
[2022-11-25] MEDS: budesonide 0.5 mg/2 mL Neb INHALATION (08:01)
[2022-11-25] MEDS: vancomycin 1,000 MG in sodium chloride 0.9% 250 ML 250 MG IV (08:30)
[2022-11-25] MEDS: folic acid 1 mg Tablet PO (08:39)
[2022-11-25] MEDS: multivitamin therapeutic Tablet 1 TAB PO (08:39)
[2022-11-25] MEDS: metoprolol tartrate 50 mg Tablet 25 MG PO (08:39)
[2022-11-25] MEDS: collagenase oint 30 gm 1 APPLIC TOPICAL (08:40)
--- NOTE | 2022-11-25 10:18 | PM.PN ---
Subjective Subjective: Patient is not following commands, CT head is unremarkable, no significant leukocytosis has remained afebrile, hemoglobin stable, patient is awaiting screening by LTAC He will need 6 to 8 weeks of IV antibiotics 1 g of vancomycin for MRSA bacteremia ALE could not be finished Patient has significant muscle mass loss that is causing hypoventilation he becomes apneic and hyperventilate asked nurse will try to wean him off Vitals/I&O/Wt Last Vital Signs Temp 98.0 F 11/25/22 04:00 Pulse 76 11/25/22 08:14 Resp 13 11/25/22 08:48 BP 138/77 11/25/22 06:00 Pulse Ox 99 11/25/22 08:48 O2 Del Method 11/25/22 08:00 O2 Flow Rate 2 11/18/22 20:59 FiO2 24 11/25/22 08:48 11/24/22 11/25/22 11/25/22 22:59 06:59 14:59 Intake Total 542.364 / 717.364 255.984 / 973.348 109.853 / 109.853 Output Total 1100 / 1100 950 / 2050 Balance -557.636 / -382.636 -694.016 / -1076.652 109.853 / 109.853 Weight last 48 hrs Weight 61 kg Physical Exam Narrative: . Patient is not able to follow commands . Intubated and sedated Muscle mass loss Edema of extremities improved Left leg ulcer without acute exacerbation Carmichael cath draining dilute urine Abdomen soft Hemodynamically stable Patient opens eyes however not able to follow commands Urinary Catheter Management: Carmichael: Cath Placed During This Visit: yes Reason for Continuing Indwelling Catheter: Accurate Measurement of Urinary Output in Critically Ill Patients Urinary Catheter Date of Insertion: 11/17/22 Urinary Catheter Time of Insertion: 22:19 Data 11/25/22 02:57 11/25/22 02:57 Micro: Microbiology 11/20/22 04:00 Blood Culture - Final Blood NO GROWTH AFTER 5 DAYS 11/20/22 04:05 Blood Culture - Final Blood NO GROWTH AFTER 5 DAYS A&P Assessment and plan (1) MRSA bacteremia: (2) Staphylococcal pneumonia: (3) CO2 narcosis: (4) Unstageable decubitus ulcer: (5) Hypercapnic respiratory failure: (6) Altered mental status: (7) Liver disease: (8) Atrial flutter: (9) Acute encephalopathy: (10) Cellulitis: (11) Alcohol abuse with withdrawal: (12) COPD with acute exacerbation: Plan Patient is awaiting LTAC screening Patient will need 1 g vancomycin for next 4 to 6 weeks for MRSA bacteremia, vanc level is low dosing has been changed to twice a day Most likely source of infection is unstageable ulcer of left leg & MRSA pneumonia, could not do ALE Repeat cultures negative Intubated and sedated Failing weaning trial patient becomes apneic and hyperventilate because of severe deconditioning and muscle mass loss Has guarded prognosis Alcohol related encephalopathy I have increased the dose of thiamine to 500 mg daily No need of getting MRI for now Head CT repeat did not show acute pathology we will change his Resume tube feeding started 20 mill per hour it was held because of excessive secretions through ET tube, avoiding aspiration, he has remained afebrile, no worsening leukocytosis, taper down steroids Flutter currently on therapeutic Lovenox Continue Protonix, Attestations Medical Necessity Statement*: Continue ICU management Time Spent in Patient Care: 30 Coding Level of Care Code Acute Code for [facility] Fwd Diagnoses MRSA bacteremia R78.81; B95.62 Staphylococcal pneumonia J15.20 CO2 narcosis R06.89 Unstageable decubitus ulcer L89.95 Hypercapnic respiratory failure J96.92 Altered mental status R41.82 Liver disease K76.9 Atrial flutter I48.92 Acute encephalopathy G93.40 Cellulitis L03.90 Alcohol abuse with withdrawal F10.139 COPD with acute exacerbation J44.1
--- NOTE | 2022-11-25 12:29 | PC.CHAP ---
Pastoral Care Encounter/Spiritual Assessment Type of Contact [] Declined fixer supervisor visit [] Patient/Family/Request visit [] Outpatient visit [] Follow-up visit [] Physician referral [] Code/Alert [x] Routine visit [] Staff referral [] Actively dying [] Patient sleeping [] Family support [] [] Out of room [] Palliative care [] [] Receiving care in room [] Pre-surgical visit [] Trauma [] Long length of stay [x] ICU visit [] Other: Relational/Emotional Strength [] Patient feels connected with others/family/visitors/staff [] Distress [] Loneliness/isolation [] Abandonment Spirituality of Patient [] Person of Mena [] Attends Restorationist of their Mena [] Believes in Prayer [] Reads Bible or Holiness materials [] There are Spiritual issues to be addressed Superintendent Division Interventions [x] Prayer [] Active listening [] Non-anxious presence [] Spiritual/emotional support [] Crisis/trauma care [] Spiritual counseling [] Bereavement support [] Provided bereavement packet [] Provided Bible/devotional materials [] Provided toy/stuffed animal, coloring book to patient or family member [] Provided Communion [] Anointing/[place] [] Salvation [x] Completed spiritual assessment [] Other: Impact on Illness or Injury [] Angry [] Fearful [] Anxious [] Often cries [] Exhaustion [] Unable to work [] Unable to attend amish [] Unable to walk/stand [] Unable to read [] Unable to drive [] Unable to eat/drink [] Unable to sleep [] Unable to be with family [] Patient intubated [] Other: Summary Time spent with patient
[2022-11-25] MEDS: FUROsemide 10 mg/mL SDV 2mL 20 MG IVP (12:40)
[2022-11-25] MEDS: lidocaine 1% 5 ML in potassium chloride premix 100 ML 25 ML IV (12:40)
[2022-11-25] MEDS: propofol 1,000 MG/100 ML INJ 10.45 MG IV (13:05)
--- NOTE | 2022-11-25 13:05 | P.TS_ITS ---
Transfer Summary Providers Date of Admission: 11/17/22 22:24 Date of Discharge/Transfer: 11/25/22 Attending Provider at Admission: Adolfo Alexis MD Attending Provider at Transfer: Ozzy Perea MD Primary Care Provider: [facility] Transfer Plans: Anticipated date of transfer: 11/25/22 . Diagnoses at Discharge Discharge Diagnosis (1) MRSA bacteremia: Status: Acute (2) Staphylococcal pneumonia: Status: Acute (3) CO2 narcosis: Status: Acute (4) Unstageable decubitus ulcer: Status: Acute (5) Hypercapnic respiratory failure: Status: Acute (6) Altered mental status: Status: Acute (7) Liver disease: Status: Acute (8) Atrial flutter: Status: Acute (9) Acute encephalopathy: Status: Acute (10) Cellulitis: Status: Acute (11) Alcohol abuse with withdrawal: Status: Acute (12) COPD with acute exacerbation: Status: Acute Reason for Visit Reason for Visit SOB, low ox Hospital Course Hospital Course 62-year-old alcoholic who is not very functional at baseline, presented with sepsis, cellulitis and MRSA bacteremia and COPD exacerbation. He had profound metabolic encephalopathy related to sepsis and alcohol withdrawal. Required BiPAP initially along Precedex. Repeat cultures were negative. Transesophageal echo could not be done because of jaw contractures. Patient was intubated for hypoventilation, CO2 narcosis worsening of COPD. It was very difficult to wean him off ventilator because of apneic spells and auto PEEP however he was following commands to some extent off sedation. Repeat CT head was unremarkable. He remained afebrile. Sputum culture resulted showing MRSA. He has significant unstageable ulcer of left anterior chavez area which was covered with Santyl Dr. Maza recommended medical management along wound dressing change. He was recommended to finish 4 to 6 weeks of vancomycin for MRSA bacteremia. Most likely source is MRSA pneumonia versus unstageable ulcer left leg. Family has been updated, patient has been accepted at long-term acute care, patient carries a guarded prognosis because of poor functional status at baseline. His ARMIDA did show vascular pathology once he is extubated he will need vascular intervention for peripheral vascular disease. He was kept on therapeutic Lovenox for atrial flutter. Transthoracic echo did not show significant abscess or vegetations. Physical Exam Narrative: Patient is not able to follow commands .? Intubated and sedated Muscle mass loss Edema of extremities improved Left leg ulcer without acute exacerbation Carmichael cath draining dilute urine Abdomen soft Hemodynamically stable Patient opens eyes however not able to follow commands Urinary Catheter Management: Carmichael: Cath Placed During This Visit: yes Reason for Continuing Indwelling Catheter: Accurate Measurement of Urinary Output in Critically Ill Patients Urinary Catheter Date of Insertion: 11/17/22 Urinary Catheter Time of Insertion: 22:19 TS Data Studies Completed and Pending Pending at discharge Category Date Time Status BMP [Basic Metabolic Panel] AM LABS Lab 11/26/22 04:00 Ordered Vancomycin Trough Timed Lab 11/26/22 06:30 Ordered US ARMIDA [CV ankle brachial index 22152] Routine Ultrasound 11/19/22 07:18 Taken Labs from last 24 hours 11/25/22 11/25/22 11/24/22 02:57 02:57 18:19 WBC 10.8 H RBC 2.96 L Hgb 9.9 L Hct 30.5 L MCV 103.0 H MCH 33.4 MCHC 32.5 RDW 11.9 L Plt Count 120 L MPV 12.7 H Neut % (Auto) 88.7 Lymph % (Auto) 5.7 [place] % (Auto) 3.6 Eos % (Auto) 0.0 Baso % (Auto) 0.2 Neut # (Auto) 9.61 H Lymph # (Auto) 0.6 L [place] # (Auto) 0.4 Eos # (Auto) 0.0 Baso # (Auto) 0.0 Nucleated RBC % (auto) 0 Nucleated RBCs # 0.0 Sodium 140 Potassium 3.4 L Chloride 100 Carbon Dioxide 29 Anion Gap 14.4 BUN 15 Creatinine 0.3 L GFR Calculation 304.8 H Glucose 98 Calculated Osmolality 291 Calcium 8.0 L Vancomycin Trough 6.4 L Completed Studies During Hospitalization Category Date Time Status CT foot LT wo con* [id number] Stat Cat Scan 11/17/22 21:[address] head wo con* [id number] Routine Cat Scan 11/18/22 12:[address] head wo con* [id number] Routine Cat Scan 11/24/22 22:[address] lower leg LT wo con* [id number] Stat Cat Scan 11/17/22 21:59 Completed CTA chest [CT angio chest w abd pel w con] Stat Cat Scan 11/17/22 18:59 Completed XR chest 1V [id number] Routine Exams 11/24/22 Completed XR chest 1V portable [id number] Routine Exams 11/20/22 07:00 Completed XR chest 1V portable [id number] Routine Exams 11/20/22 11:18 Completed XR chest 1V portable [id number] Routine Exams 11/20/22 14:49 Completed XR chest 1V portable [id number] Routine Exams 11/21/22 09:13 Completed XR chest 1V portable [id number] Routine Exams 11/24/22 08:53 Completed XR chest 1V portable [id number] Stat Exams 11/17/22 16:58 [place] [id number] Stat Ultrasound 11/17/22 21:55 Completed CV. echo complete* [id number] Routine Ultrasound 11/18/22 07:20 Completed Laboratory Last Values WBC 10.8 10^3/uL (4.0-10.0) H 11/25/22 02:57 Corrected WBC Cancelled 11/22/22 03:22 RBC 2.96 10^6/uL (4.1-5.3) L 11/25/22 02:57 Hgb 9.9 g/dL (11.7-16.6) L 11/25/22 02:57 Hct 30.5 % (42.0-52.0) L 11/25/22 02:57 MCV 103.0 fl (80-94) H 11/25/22 02:57 MCH 33.4 pg (28.0-34.0) 11/25/22 02:57 MCHC 32.5 g/dL (30.0-36.0) 11/25/22 02:57 RDW 11.9 % (12.1-15.1) L 11/25/22 02:57 Plt Count 120 10^3/cmm (130-400) L 11/25/22 02:57 MPV 12.7 fL (7.4-10.4) H 11/25/22 02:57 Gran % Cancelled 11/22/22 03:22 Neut % (Auto) 88.7 % 11/25/22 02:57 Lymph % (Auto) 5.7 % 11/25/22 02:57 Baca % (Auto) 3.6 % 11/25/22 02:57 Eos % (Auto) 0.0 % 11/25/22 02:57 Baso % (Auto) 0.2 % 11/25/22 02:57 Neut # (Auto) 9.61 10^3/uL (1.8-7.7) H 11/25/22 02:57 Lymph # (Auto) 0.6 10^3/uL (0.8-4.8) L 11/25/22 02:57 [place]aca # (Auto) 0.4 10^3/uL (0.2-0.9) 11/25/22 02:57 Eos # (Auto) 0.0 10^3/uL (0.0-0.8) 11/25/22 02:57 Baso # (Auto) 0.0 10^3/uL (0.0-0.1) 11/25/22 02:57 Absolute Gran (auto) Cancelled 11/22/22 03:22 Nucleated RBC % (auto) 0 % 11/25/22 02:57 Total Counted 100 (0-100) 11/17/22 17:05 Atypical Lymphs % 3.0 % (0-5) 11/17/22 17:05 Absolute Neutrophils 27.8 10^3/cmm (1.4-6.5) H 11/17/22 17:05 Segmented Neutrophils 67 % 11/17/22 17:05 Abs Segm Neuts (Man) 20.4 10/cmm (1.6-7.1) H 11/17/22 17:05 Band Neutrophils 24.0 % 11/17/22 17:05 Abs Band Neuts (Man) 7.3 10^3/cmm (0.0-1.2) H 11/17/22 17:05 Absolute Lymphocytes 2.1 10^3/cmm (1.2-3.4) 11/17/22 17:05 Lymphocytes (Manual) 4 % 11/17/22 17:05 Monocytes (Manual) 2.0 % 11/17/22 17:05 Absolute Monocytes 0.6 10^3/cmm (0.1-0.6) 11/17/22 17:05 Eosinophils (Manual) 0 % 11/17/22 17:05 Absolute Eosinophils 0.0 10^3/cmm (0.0-0.7) 11/17/22 17:05 Basophils (Manual) 0.0 % 11/17/22 17:05 Absolute Basophils 0.0 10^3/cmm (0.0-0.2) 11/17/22 17:05 Nucleated RBCs # 0.0 /100WBC 11/25/22 02:57 Platelet Estimate Normal (Normal) 11/17/22 17:05 Giant Platelets 1+ H 11/17/22 17:05 Dimorphic RBCs 4+ H 11/17/22 17:05 Polychromasia 3+ H 11/17/22 17:05 Hypochromasia 1+ H 11/17/22 17:05 Poikilocytosis 4+ H 11/17/22 17:05 Anisocytosis 4+ H 11/17/22 17:05 Microcytosis 4+ H 11/17/22 17:05 Macrocytosis 4+ H 11/17/22 17:05 Spherocytes 4+ 11/17/22 17:05 Tear Drop Cells 3+ 11/17/22 17:05 Denniston Cells 4+ H 11/17/22 17:05 Acanthocytes (Spur) 1+ H 11/17/22 17:05 Schistocytes 3+ H 11/17/22 17:05 ESR 13 mm/hr (0-10) H 11/17/22 22:16 PT 12.50 SECONDS (12.1-14.9) 11/17/22 22:16 INR 0.90 (0.8-1.2) 11/17/22 22:16 APTT 28.4 SECONDS (23.9-36.7) 11/17/22 22:16 Fibrinogen 539 mg/dL (174-498) H 11/17/22 22:16 Fibrin Degrad Products Pos, 10-40 ug/mL (NEG) H 11/17/22 22:16 D-Dimer 3.46 ug/mIFEU (0-0.59) H 11/17/22 22:16 Specimen Type Arterial 11/24/22 04:46 Sample Site Brachial, right 11/24/22 04:46 ABG pH 7.41 (7.35-7.45) 11/24/22 04:46 ABG pCO2 47.2 mmHg (35-45) H 11/24/22 04:46 ABG pO2 75.0 mmHg (80.0-100.0) L 11/24/22 04:46 ABG HCO3 29.7 mmol/L (22-26) H 11/24/22 04:46 ABG O2 Saturation 96.8 11/23/22 12:43 ABG Base Excess 4.2 mmol/L (-2.0-2.0) H 11/24/22 04:46 Catalino Test N/a 11/24/22 04:46 A-a O2 Gradient Not Reportable 11/23/22 12:43 Hematocrit 35.9 % (42-52) L 11/24/22 04:46 Hgb O2 Saturation 95.2 % (95-100) 11/23/22 12:43 Carboxyhemoglobin 1.3 %THgb (0.4-20.1) 11/23/22 12:43 Methemoglobin 0.3 % (0.4-1.5) L 11/23/22 12:43 Total Hemoglobin 10.8 g/dL (14-18) L 11/23/22 12:43 Sodium 142.0 mmol/L (131-143) 11/23/22 12:43 Potassium 3.8 mmol/L (3.5-5.0) 11/23/22 12:43 Glucose 119.0 mg/dL (70-115) H 11/23/22 12:43 Ionized Calcium 1.2 mmol/L (1.1-1.4) 11/23/22 12:43 Respiration Rate 12.0 % 11/23/22 05:10 O2 Delivery Device Vent 11/24/22 04:46 O2 Liters/Min 3.0 % 11/17/22 16:58 Vent Mode vc/ac 11/23/22 05:10 FiO2 24.0 % 11/24/22 04:46 Tidal Volume 0.45 11/24/22 04:46 PEEP 5.0 cmH20 11/24/22 04:46 Specimen Drawn By jeff 11/23/22 05:10 Cleaner And Presser ID Nicanor 11/24/22 04:46 Sodium 140 mmol/L (136-145) 11/25/22 02:57 Potassium 3.4 mmol/L (3.5-5.1) L 11/25/22 02:57 Chloride 100 mmol/L (98-107) 11/25/22 02:57 Carbon Dioxide 29 mmol/L (22-29) 11/25/22 02:57 Anion Gap 14.4 (5-19) 11/25/22 02:57 BUN 15 mg/dL (8-23) 11/25/22 02:57 Creatinine 0.3 mg/dL (0.7-1.2) L 11/25/22 02:57 GFR Calculation 304.8 mL/min (90-130) H 11/25/22 02:57 Glucose 98 mg/dL (65-115) 11/25/22 02:57 Estimat Average Glucose 108 11/17/22 17:05 Hemoglobin A1c 5.4 % (4.0-6.0) 11/17/22 17:05 Calculated Osmolality 291 mOsm/kg (285-295) 11/25/22 02:57 Lactic Acid 1.3 mmol/L (0.5-2.2) 11/17/22 17:05 Calcium 8.0 mg/dL (8.5-10.5) L 11/25/22 02:57 Phosphorus 4.6 mg/dL (2.5-4.5) H 11/17/22 22:16 Magnesium 2.5 mg/dL (1.7-2.3) H 11/22/22 03:22 Total Bilirubin 0.4 mg/dL (0.15-1.2) 11/22/22 03:22 AST 15 U/L (0-40) 11/22/22 03:22 ALT 9 U/L (0-41) 11/22/22 03:22 Alkaline Phosphatase 75 U/L (40-130) 11/22/22 03:22 Ammonia 55 umol/L (16-60) 11/20/22 12:33 Creatine Kinase 69 U/L (39-308) 11/17/22 22:16 Troponin T Baseline 19 ng/L (0-15) H 11/17/22 22:16 Troponin T 120 Minute 18.39 ng/L (0-15) H 11/17/22 23:46 Delta Troponin T -0.61 ABS# (0-10) L 11/17/22 23:46 Troponin T Hi Sens 6Hr 16.18 ng/L (0-15) H 11/18/22 04:00 Troponin T Hi Sens 6Hr Delta -2.82 ng/L (0-12) L 11/18/22 04:00 C-Reactive Protein 101.3 mg/L (0.0-4.9) H 11/17/22 17:05 NT-Pro-B Natriuret Pep 2405 pg/mL (0-125) H 11/18/22 04:00 Total Protein 7.1 g/dL (6.6-8.7) 11/22/22 03:22 Albumin 2.8 g/dL (3.5-5.2) L 11/22/22 03:22 Globulin 4.3 g/dL (1.3-4.6) 11/22/22 03:22 Lipase 9 U/L (13-60) L 11/17/22 22:16 Vitamin B12 896 pg/mL (232-1245) 11/17/22 22:16 Folate 8.6 ng/mL (4.5-32.2) 11/17/22 17:05 Procalcitonin 1.59 ng/mL (0-0.5) H 11/17/22 17:05 TSH 0.30 uIU/mL (0.27-4.20) 11/17/22 22:16 Random Cortisol 29.34 ug/dL (2.47-19.5) H 11/17/22 17:05 Random Cortisol Cancelled 11/17/22 17:05 Urine Color Yellow (Yellow) 11/17/22 22:16 Urine Appearance Clear (CLEAR) 11/17/22 22:16 Urine pH 5 (5-7) 11/17/22 22:16 Ur Specific [place] 1.015 (1.005-1.030) 11/17/22 22:16 Urine Protein Neg (Negative) 11/17/22 22:16 Urine Glucose (UA) Norm (Normal) 11/17/22 22:16 Urine Ketones Negative (Negative) 11/17/22 22:16 Urine Blood Neg (Negative) 11/17/22 22:16 Urine Nitrate Negative (Negative) 11/17/22 22:16 Urine Bilirubin 2+ (Negative) H 11/17/22 22:16 Urine Urobilinogen Norm mg/dL (Negative) 11/17/22 22:16 Ur Leukocyte Esterase Negative (Negative) 11/17/22 22:16 Vancomycin Trough 6.4 ug/mL (10-15) L 11/24/22 18:19 Urine Opiates Screen Negative ng/mL (Negative) 11/17/22 22:16 Ur Barbiturates Screen Negative ng/mL (Negative) 11/17/22 22:16 Ur Phencyclidine Scrn Negative ng/mL (Negative) 11/17/22 22:16 Ur Amphetamines Screen Negative ng/mL (Negative) 11/17/22 22:16 U Benzodiazepines Scrn Negative ng/mL (Negative) 11/17/22 22:16 Urine Cocaine Screen Negative ng/mL (Negative) 11/17/22 22:16 U Marijuana (THC) Screen Negative ng/mL (Negative) 11/17/22 22:16 Ethyl Alcohol < 10 mg/dL (0-10) 11/17/22 22:16 Hepatitis A IgM Ab Non-reactive (Nonreactive) 11/17/22 17:05 Hep Bs Antigen Non-reactive (Nonreactive) 11/17/22 17:05 Hep B Core IgM Ab Non-reactive (Nonreactive) 11/17/22 17:05 Hepatitis C Antibody Non-reactive (Nonreactive) 11/17/22 17:05 HIV 1&2 Ab & HIV 1 Ag Non-reactive (Non-Reactiv) 11/17/22 17:05 HIV 1&2 Antibody Non-reactive (Non-Reactiv) 11/17/22 17:05 Influenza Type A Ag negative (Negative) 11/17/22 17:17 Influenza Type B Ag negative (Negative) 11/17/22 17:17 SARS-CoV-2 Ag (Rapid) Negative (Negative) 11/17/22 17:17 Radiology Impressions Chest/Abdomen/Pelvis CT 11/17/22 18:59 IMPRESSION: 1. No pulmonary embolus. The 2. Centrilobular emphysema. Mild diffuse peribronchial thickening. No consolidation. IMPRESSION: 1. Distended urinary bladder. Urinary retention should be considered in the adequate clinical setting. Otherwise no acute intra-abdominal or intrapelvic pathology. 2. Cirrhotic liver. Foot CT 11/17/22 21:59 IMPRESSION: 1. No evidence of fracture, focal bone destruction, or soft tissue gas to suggest necrotizing fasciitis. 2. Mid to distal foot subcutaneous edema/cellulitis. If there is concern for early osteomyelitis, an MRI would be more sensitive. 3. Chronic findings above with vascular calcifications and DJD. Lower Extremity CT 11/17/22 21:59 IMPRESSION: 1. No evidence of fracture, focal bone destruction, or soft tissue gas to suggest necrotizing fasciitis. 2. Diffuse lower leg subcutaneous edema/cellulitis with a few chavez skin ulcerations. No definite or sizable abscess on this unenhanced exam. If there is concern for early osteomyelitis, an MRI would be more sensitive. 3. Chronic findings above with vascular calcifications and DJD. Chest X-Ray 11/24/22 08:53 IMPRESSION: 1. Right-sided PICC line looped in the lower one third of the SVC. The tip of the line is directed back cephalad. 2. ET tube and NG tube in satisfactory location. 3. No acute cardiopulmonary process noted. Head CT 11/24/22 22:00 IMPRESSION: No acute intracranial abnormality. Recent Clincial Data Last Vital Signs Temp 98.0 F 11/25/22 04:00 Pulse 76 11/25/22 11:12 Resp 12 11/25/22 11:10 BP 138/77 11/25/22 06:00 Pulse Ox 98 11/25/22 11:10 O2 Del Method 11/25/22 11:05 O2 Flow Rate 2 11/18/22 20:59 FiO2 24 11/25/22 11:10 Vital Signs Temp Pulse Resp BP Pulse Ox O2 Del Method FiO2 11/25/22 08:00 24 11/25/22 08:00 76 11/25/22 11:12 76 11/25/22 11:10 12 98 24 11/25/22 11:05 78 17 96 Mechanical Ventilation 11/25/22 08:48 13 99 24 11/25/22 08:14 76 11/25/22 08:00 70 10 L 98 Mechanical Ventilation 11/25/22 07:46 10 L 95 24 11/25/22 06:00 85 138/77 96 11/25/22 05:45 91 138/77 95 11/25/22 05:30 108 H 97/53 98 11/25/22 05:15 89 97/53 97 11/25/22 05:00 86 100/56 96 11/25/22 04:45 84 100/56 95 11/25/22 04:30 68 100/56 94 11/25/22 04:15 67 100/56 95 11/25/22 04:00 98.0 F 71 115/61 94 11/25/22 03:45 72 115/61 95 11/25/22 03:30 78 115/61 94 11/25/22 03:15 76 115/61 94 11/25/22 03:00 82 145/87 96 11/25/22 02:45 81 145/87 96 11/25/22 02:30 85 145/87 96 11/25/22 06:00 24 11/25/22 05:51 95 11/25/22 04:00 24 11/25/22 04:00 12 96 24 11/25/22 04:00 67 11 L 95 Mechanical Ventilation 11/25/22 02:15 106 H 125/81 97 11/25/22 02:00 100 120/74 97 11/25/22 01:45 87 168/102 97 11/25/22 01:30 101 H 168/102 98 11/25/22 01:15 87 181/91 11/25/22 02:00 24 11/25/22 05:50 12 95 24 Intake & Output/Weight 11/23/22 11/24/22 11/25/22 11/26/22 06:59 06:59 06:59 06:59 Intake Total 2796.990 / 2796.990 1303.116 / 1303.116 973.348 / 973.348 445.495 / 445.495 Output Total 1025 / 1025 1725 / 1725 2050 / 2050 Balance 1771.990 / 1771.990 -421.884 / -421.884 -1076.652 / -1076.652 445.495 / 445.495 Weight 60.5 kg 61 kg Vitals Last Vital Signs Temp 98.0 F 11/25/22 04:00 Pulse 76 11/25/22 11:12 Resp 12 11/25/22 11:10 BP 138/77 11/25/22 06:00 Pulse Ox 98 11/25/22 11:10 O2 Del Method 11/25/22 11:05 O2 Flow Rate 2 11/18/22 20:59 FiO2 24 11/25/22 11:10 TS Medications Medications Acetaminophen (Acetaminophen 325 Mg Tablet) 650 mg PO Q6H PRN PRN Reason: Mild/Mod Pain Or Temp >/= 101 Albuterol Sulfate (Albuterol 2.5 Mg/3 Ml Neb) 2.5 mg INHALATION Q4H.RESPIRATORY JOLYNN Last Admin: 11/25/22 11:03 Dose: 2.5 mg Budesonide (Budesonide 0.5 Mg/2 Ml Neb) 0.5 mg INHALATION BID.RESPIRATORY JOLYNN Last Admin: 11/25/22 08:01 Dose: 0.5 mg Chlorhexidine Gluconate (Chlorhexidine Gluconate 4% Btl 118 Ml) 1 applic TOPICAL Q24H JOLYNN Last Admin: 11/25/22 02:28 Dose: 1 applic Collagenase (Collagenase Oint 30 Gm) 1 applic TOPICAL DAILY JOLYNN Last Admin: 11/25/22 08:40 Dose: 1 applic Enoxaparin Sodium (Enoxaparin 60 Mg/0.6 Ml Syringe) 50 mg SUBCUT Q12H [facility] Last Admin: 11/25/22 12:40 Dose: 50 mg Folic Acid (Folic Acid 1 Mg Tablet) 1 mg PO DAILY JOLYNN Last Admin: 11/25/22 08:39 Dose: 1 mg Furosemide (Furosemide 10 Mg/Ml Sdv 2ml) 20 mg IVP Q24H [facility] Last Admin: 11/25/22 12:40 Dose: 20 mg Hydralazine HCl (Hydralazine 20 Mg/Ml Inj 1 Ml) 5 mg IVP Q4H PRN PRN Reason: SBP >160 Last Admin: 11/25/22 01:20 Dose: 5 mg Propofol (Diprivan) 1,000 mg in 100 mls @ 0 mls/hr IV .Q0M [facility]; Protocol Last Titration: 11/25/22 08:35 Dose: 0 mcg/kg/min, 0 mls/hr Fentanyl 1,000 mcg/ Sodium (Chloride) 100 mls @ 0 mls/hr IV .Q0M [facility]; Protocol Last Titration: 11/25/22 12:56 Dose: 100 mcg/hr, 10 mls/hr Dexmedetomidine HCl 400 mcg/ (Sodium Chloride) 104 mls @ 0 mls/hr IV .Q0M [facility]; Protocol Last Titration: 11/25/22 12:54 Dose: 0.8 mcg/kg/hr, 12.38 mls/hr Vancomycin HCl 1,000 mg/ (Sodium Chloride) 250 mls @ 250 mls/hr IV Q12H [facility] Last Infusion: 11/25/22 12:54 Dose: Infused Lidocaine HCl 5 ml/ Potassium (Chloride) 105 mls @ 25 mls/hr IV ONCE ONE Stop: 11/25/22 16:41 Last Admin: 11/25/22 12:40 Dose: 25 mls/hr Ipratropium [place] (Ipratropium 0.5 Mg/2.5 Ml Neb) 0.5 mg INHALATION Q4H.RESPIRATORY [facility] Last Admin: 11/25/22 11:03 Dose: 0.5 mg Methylprednisolone Sodium Succinate (Methylprednisolone Sod Succ 40 Mg/Ml Inj) 40 mg IVP DAILY [facility] Metoprolol Tartrate (Metoprolol Tartrate 50 Mg Tablet) 25 mg PO BID [facility] Last Admin: 11/25/22 08:39 Dose: 25 mg Morphine Sulfate (Morphine 4 Mg/Ml Sdv 1 Ml) 2 mg IVP Q4H PRN PRN Reason: SEVERE PAIN Last Admin: 11/24/22 09:36 Dose: 2 mg Multivitamins Therapeutic (Multivitamin Therapeutic Tablet) 1 tab PO DAILY [facility] Last Admin: 11/25/22 08:39 Dose: 1 tab Pantoprazole Sodium (Pantoprazole 40 Mg Sdv) 40 mg IVP Q12H [facility] Last Admin: 11/25/22 04:08 Dose: 40 mg Thiamine HCl (Thiamine 100 Mg/Ml Sdv) 500 mg IVP DAILY [facility] Last Admin: 11/25/22 08:38 Dose: 500 mg Discontinued Medications Albuterol/Ipratropium (Ipratropium-Albuterol 3 Ml Neb) 3 ml INHALATION ONCE ONE Stop: 11/17/22 16:58 Last Admin: 11/17/22 17:30 Dose: 3 ml Albuterol/Ipratropium (Ipratropium-Albuterol 3 Ml Neb) 3 ml INHALATION QID.RESPIRATORY [facility] Albuterol/Ipratropium (Ipratropium-Albuterol 3 Ml Neb) 3 ml INHALATION Q4H [facility] Last Admin: 11/18/22 15:41 Dose: 3 ml Albuterol/Ipratropium (Ipratropium-Albuterol 3 Ml Neb) 3 ml INHALATION Q4H.RESPIRATORY [facility] Last Admin: 11/22/22 03:08 Dose: 3 ml Budesonide (Budesonide 0.5 Mg/2 Ml Neb) 0.5 mg INHALATION Q12H [facility] Last Admin: 11/18/22 10:45 Dose: 0.5 mg Etomidate (Etomidate 2 Mg/Ml Inj Sdv 10 Ml) 12 mg IVP NOW ONE Stop: 11/20/22 10:34 Last Admin: 11/20/22 10:45 Dose: 12 mg Fentanyl (Fentanyl 50 Mcg/Ml Inj 2ml) 50 mcg IVP ONCE ONE Stop: 11/20/22 10:33 Last Admin: 11/20/22 10:47 Dose: 50 mcg Gabapentin (Gabapentin 100 Mg Capsule) 100 mg PO BID [facility]OLYNN Last Admin: 11/23/22 16:55 Dose: 100 mg Heparin Sodium (Porcine) (Heparin 5,000 Unit/Ml Inj 1 Ml) 0 unit IV PRN PRN; Protocol PRN Reason: Heparin weight-base protocol Vancomycin/PEG/[place]/Lysine/Water (Vancocin) 1,500 mg in 300 mls @ 200 mls/hr IV ONCE ONE; Protocol Stop: 11/17/22 18:53 Last Admin: 11/17/22 18:10 Dose: 200 mls/hr Cefepime HCl 2,000 mg/ Sodium (Chloride) 50 mls @ 100 mls/hr IV ONCE ONE; Protocol Stop: 11/17/22 17:53 Last Infusion: 11/17/22 18:07 Dose: Infused Clindamycin HCl/Dextrose (Cleocin) 600 mg in 50 mls @ 100 mls/hr IV Q8H [facility]YNN; Protocol Last Infusion: 11/18/22 01:28 Dose: Infused Dexmedetomidine HCl 400 mcg/ (Sodium Chloride) 104 mls @ 0 mls/hr IV .Q0M [facility]; Protocol Last Titration: 11/22/22 19:00 Dose: Infused Heparin Sodium/Sodium Chloride (Heparin Drip) 25,000 unit in 500 mls @ 0 mls/hr IV .Q0M [facility]; Protocol Last Titration: 11/18/22 07:41 Dose: 0 unit/kg/hr, 0 mls/hr Piperacillin Sod/Tazobactam (Sod 3.375 gm/ Sodium Chloride) 50 mls @ 12.5 mls/hr IV Q8H [facility]OLYNN Last Infusion: 11/18/22 14:14 Dose: Infused Vancomycin HCl 750 mg/ Sodium (Chloride) 250 mls @ 250 mls/hr IV Q24H [facility] Last Admin: 11/21/22 18:30 Dose: Not Given Clindamycin HCl/Dextrose (Cleocin) 600 mg in 50 mls @ 100 mls/hr IV Q8H [facility]; Protocol Last Infusion: 11/20/22 11:47 Dose: Infused Piperacillin Sod/Tazobactam (Sod 3.375 gm/ Sodium Chloride) 50 mls @ 12.5 mls/hr IV Q8H [facility] Last Infusion: 11/23/22 23:09 Dose: Infused Sodium Chloride (Sodium Chloride 0.45%) 1,000 mls @ 50 mls/hr IV .Q20H [facility] Last Admin: 11/22/22 15:19 Dose: 50 mls/hr Midazolam HCl 100 mg/ Sodium (Chloride) 100 mls @ 0 mls/hr IV .Q0M [facility]; Protocol Last Titration: 11/22/22 09:00 Dose: 0 mg/hr, 0 mls/hr Fentanyl 2,500 mcg/ Sodium (Chloride) 250 mls @ 0 mls/hr IV .Q0M [facility]; Protocol Last Titration: 11/21/22 11:00 Dose: 0 mcg/hr, 0 mls/hr Magnesium Sulfate (Magnesium Sulfate Premix) 2 gm in 50 mls @ 50 mls/hr IV ONCE ONE Stop: 11/21/22 10:17 Last Infusion: 11/21/22 15:56 Dose: Infused Vancomycin HCl 1,000 mg/ (Sodium Chloride) 250 mls @ 250 mls/hr IV Q24H [facility] Last Infusion: 11/23/22 23:08 Dose: Infused Lidocaine HCl 5 ml/ Potassium (Chloride) 105 mls @ 25 mls/hr IV ONCE ONE Stop: 11/25/22 14:34 Iohexol (Iohexol 350 Mg/Ml 500 Ml Btl (Per Ml)) 0 ml IV ONCE ONE Stop: 11/17/22 20:09 Last Admin: 11/17/22 20:09 Dose: 100 ml Lorazepam (Lorazepam 2 Mg/Ml Inj 1 Ml) 2 mg IM Q4H PRN; Protocol PRN Reason: ALCOWD Last Admin: 11/18/22 19:53 Dose: 2 mg Lorazepam (Lorazepam 2 Mg/Ml Inj 1 Ml) 2 mg IVP PRN PRN; Protocol PRN Reason: WITHDRAWAL Last Admin: 11/19/22 22:11 Dose: 2 mg Lorazepam (Lorazepam 2 Mg Tablet) 2 mg PO Q4H PRN; Protocol PRN Reason: WITHDRAWAL Methylprednisolone Sodium Succinate (Methylprednisolone Sod Succ 125 Mg/2 Ml Inj) 125 mg IV ONCE ONE Stop: 11/17/22 16:58 Last Admin: 11/17/22 17:24 Dose: 125 mg Methylprednisolone Sodium Succinate (Methylprednisolone Sod Succ 40 Mg/Ml Inj) 40 mg IVP Q8H [facility] Methylprednisolone Sodium Succinate (Methylprednisolone Sod Succ 40 Mg/Ml Inj) 40 mg IVP Q12H [facility] Last Admin: 11/19/22 07:22 Dose: 40 mg Methylprednisolone Sodium Succinate (Methylprednisolone Sod Succ 40 Mg/Ml Inj) 40 mg IVP Q24H [facility] Last Admin: 11/21/22 06:18 Dose: 40 mg Methylprednisolone Sodium Succinate (Methylprednisolone Sod Succ 40 Mg/Ml Inj) 40 mg IVP Q8H [facility] Last Admin: 11/24/22 09:34 Dose: 40 mg Methylprednisolone Sodium Succinate (Methylprednisolone Sod Succ 40 Mg/Ml Inj) 40 mg IVP Q12H [facility] Last Admin: 11/24/22 22:53 Dose: 40 mg Midazolam HCl (Midazolam 1 Mg/Ml Inj 2 Ml) 2 mg IVP ONCE ONE Stop: 11/20/22 10:33 Last Admin: 11/20/22 10:48 Dose: 2 mg Morphine Sulfate (Morphine 4 Mg/Ml Sdv 1 Ml) 1 mg IVP Q4H PRN PRN Reason: SEVERE PAIN Last Admin: 11/19/22 21:15 Dose: 1 mg Pantoprazole Sodium (Pantoprazole Dr 40 Mg Tablet) 40 mg PO BID [facility] Last Admin: 11/20/22 10:21 Dose: Not Given Rocuronium [place] (Rocuronium 10 Mg/Ml Inj 5ml) 50 mg IVP Q1H PRN PRN Reason: SHORTNESS OF BREATH Last Admin: 11/20/22 10:46 Dose: 50 mg Thiamine HCl (Thiamine 100 Mg/Ml Sdv) 100 mg IM ONCE ONE Stop: 11/17/22 22:18 Last Admin: 11/18/22 00:06 Dose: 100 mg Thiamine HCl (Thiamine 100 Mg/Ml Sdv) 100 mg IVP DAILY [facility] Last Admin: 11/23/22 09:59 Dose: 100 mg Thiamine Mononitrate (Thiamine 100 Mg Tablet) 100 mg PO DAILY [facility] Last Admin: 11/20/22 10:21 Dose: Not Given Thiamine Mononitrate (Thiamine 100 Mg Tablet) 100 mg PO DAILY [facility] Last Admin: 11/21/22 08:41 Dose: 100 mg Allergies No Known Allergies Allergy (Verified 11/18/22 08:53) Home Medications albuterol sulfate 90 mcg/actuation aerosol inhaler 2 puff inhalation QID PRN Shortness Of Breath 07/14/20 [History Confirmed 11/18/22] budesonide-formoterol HFA 80 mcg-4.5 mcg/actuation aerosol inhaler 2 puff inhalation BID 07/14/20 [History Confirmed 11/18/22] cholecalciferol (vitamin D3) 50 mcg (2,000 unit) tablet (Vitamin D3) 2,000 unit PO DAILY 07/14/20 [History Confirmed 11/18/22] etodolac 400 mg tablet 400 mg PO BID PRN Pain 07/14/20 [History Confirmed 11/18/22] gabapentin 100 mg capsule 200 mg PO TID 07/14/20 [History Confirmed 11/18/22] pantoprazole 40 mg tablet,delayed release (Protonix) 40 mg PO BID 07/14/20 [History Confirmed 11/18/22] rivaroxaban 20 mg tablet 20 mg PO QPM 07/14/20 [History Confirmed 11/18/22] acamprosate 333 mg tablet,delayed release 333 mg PO TID 11/18/22 [History Confirmed 11/18/22] fluticasone 100 mcg-salmeterol 50 mcg/dose blistr powdr for inhalation 1 inh inhalation BID 11/18/22 [History Confirmed 11/18/22] guaifenesin 400 mg tablet 400 mg PO Q4H PRN Congestion 11/18/22 [History Confirmed 11/18/22] lactulose 10 gram/15 mL oral solution 30 g PO BID PRN Delirium 11/18/22 [History Confirmed 11/18/22] melatonin 3 mg tablet 9 mg PO BEDTIME 11/18/22 [History Confirmed 11/18/22] Discharge Plan Discharge Patient Disposition: [facility] Condition: Stable Prescriptions: Continued pantoprazole [Protonix] 40 mg Tablet,Delayed Release (Dr/Ec) 40 mg PO BID etodolac 400 mg Tablet 400 mg PO BID PRN (Reason: Pain) gabapentin 100 mg Capsule 200 mg PO TID albuterol sulfate 90 mcg/actuation Hfa Aerosol Inhaler 2 puff INHALATION QID PRN (Reason: Shortness Of Breath) budesonide-formoterol 80-4.5 mcg/actuation Hfa Aerosol Inhaler 2 puff INHALATION BID cholecalciferol (vitamin D3) [Vitamin D3] 50 mcg (2,000 unit) Tablet 2,000 unit PO DAILY rivaroxaban 20 mg Tablet 20 mg PO QPM melatonin 3 mg Tablet 9 mg PO BEDTIME guaifenesin 400 mg Tablet 400 mg PO Q4H PRN (Reason: Congestion) acamprosate 333 mg Tablet,Delayed Release (Dr/Ec) 333 mg PO TID Rx Instructions: administer with mid-day and evening meals lactulose 10 gram/15 mL Solution 30 g PO BID PRN (Reason: Delirium) fluticasone propion-salmeterol 100-50 mcg/dose Blister With Device 1 inh INHALATION BID Discharge Orders: Discharge Order (Routine); Ordered 11/25/22 Ordered By: Ozzy Perea Referrals: [facility] [Primary Care Provider] - Patient Instructions: Opioid Safety Transfer Attestations Time Spent in Transfer Care: less than 30 min Quality Metrics Clinical Quality Measures [ No reported AMI, CVA or VTE this stay] Coding Level of Care Code Acute Code for [facility] Fwd Diagnoses MRSA bacteremia R78.81; B95.62 Staphylococcal pneumonia J15.20 CO2 narcosis R06.89 Unstageable decubitus ulcer L89.95 Hypercapnic respiratory failure J96.92 Altered mental status R41.82 Liver disease K76.9 Atrial flutter I48.92 Acute encephalopathy G93.40 Cellulitis L03.90 Alcohol abuse with withdrawal F10.139 COPD with acute exacerbation J44.1
--- NOTE | 2022-11-25 13:18 | PM.DCS ---
Discharge Providers Date of Admission: 11/17/22 22:24 Date of Discharge: November 25, 2022 Attending Provider at Admission: Adolfo Alexis MD Attending Provider at Discharge: Ozzy Perea MD Primary Care Provider: [facility] Diagnoses at Discharge Discharge Diagnosis (1) MRSA bacteremia: Status: Acute (2) Staphylococcal pneumonia: Status: Acute (3) CO2 narcosis: Status: Acute (4) Unstageable decubitus ulcer: Status: Acute (5) Hypercapnic respiratory failure: Status: Acute (6) Altered mental status: Status: Acute (7) Liver disease: Status: Acute (8) Atrial flutter: Status: Acute (9) Acute encephalopathy: Status: Acute (10) Cellulitis: Status: Acute (11) Alcohol abuse with withdrawal: Status: Acute (12) COPD with acute exacerbation: Status: Acute Reason for Visit Reason for Visit: SOB, low ox Hospital Course Hospital Course Pt is going to the LTAC, Accepting MD is Dr Salazar 62-year-old alcoholic who is not very functional at baseline, presented with sepsis, cellulitis and MRSA bacteremia and COPD exacerbation. He had profound metabolic encephalopathy related to sepsis and alcohol withdrawal. Required BiPAP initially along Precedex. Repeat cultures were negative. Transesophageal echo could not be done because of jaw contractures. Patient was intubated for hypoventilation, CO2 narcosis worsening of COPD. It was very difficult to wean him off ventilator because of apneic spells and auto PEEP however he was following commands to some extent off sedation. Repeat CT head was unremarkable. He remained afebrile. Sputum culture resulted showing MRSA. He has significant unstageable ulcer of left anterior chavez area which was covered with Santyl Dr. Maza recommended medical management along wound dressing change. He was recommended to finish 4 to 6 weeks of vancomycin for MRSA bacteremia. Most likely source is MRSA pneumonia versus unstageable ulcer left leg. Family has been updated, patient has been accepted at long-term acute care, patient carries a guarded prognosis because of poor functional status at baseline. His ARMIDA did show vascular pathology once he is extubated he will need vascular intervention for peripheral vascular disease. He was kept on therapeutic Lovenox for atrial flutter. Transthoracic echo did not show significant abscess or vegetations. Physical Exam Narrative: Patient is not able to follow commands .? Intubated and sedated Muscle mass loss Edema of extremities improved Left leg ulcer without acute exacerbation Carmichael cath draining dilute urine Abdomen soft Hemodynamically stable Patient opens eyes however not able to follow commands Urinary Catheter Management: Carmichael: Cath Placed During This Visit: yes Reason for Continuing Indwelling Catheter: Accurate Measurement of Urinary Output in Critically Ill Patients Urinary Catheter Date of Insertion: 11/17/22 Urinary Catheter Time of Insertion: 22:19 Discharge Data Studies Completed and Pending Completed Studies During Hospitalization Category Date Time Status CT foot LT wo con* 13599 Stat Cat Scan 11/17/22 21:[address] head wo con* 26610 Routine Cat Scan 11/18/22 12:[address] head wo con* [id number] Routine Cat Scan 11/24/22 22:[address] lower leg LT wo con* [id number] Stat Cat Scan 11/17/22 21:59 Completed CTA chest [CT angio chest w abd pel w con] Stat Cat Scan 11/17/22 18:59 Completed XR chest 1V [id number] Routine Exams 11/24/22 Completed XR chest 1V portable [id number] Routine Exams 11/20/22 07:00 Completed XR chest 1V portable [id number] Routine Exams 11/20/22 11:18 Completed XR chest 1V portable [id number] Routine Exams 11/20/22 14:49 Completed XR chest 1V portable [id number] Routine Exams 11/21/22 09:13 Completed XR chest 1V portable [id number] Routine Exams 11/24/22 08:53 Completed XR chest 1V portable [id number] Stat Exams 11/17/22 16:58 [place] [id number] Stat Ultrasound 11/17/22 21:55 Completed CV. echo complete* [id number] Routine Ultrasound 11/18/22 07:20 Completed Pending at discharge Category Date Time Status BMP [Basic Metabolic Panel] AM LABS Lab 11/26/22 04:00 Ordered Vancomycin Trough Timed Lab 11/26/22 06:30 Ordered US ARMIDA [CV ankle brachial index 34672] Routine Ultrasound 11/19/22 07:18 Taken Radiology Impressions Chest/Abdomen/Pelvis CT 11/17/22 18:59 IMPRESSION: 1. No pulmonary embolus. The 2. Centrilobular emphysema. Mild diffuse peribronchial thickening. No consolidation. IMPRESSION: 1. Distended urinary bladder. Urinary retention should be considered in the adequate clinical setting. Otherwise no acute intra-abdominal or intrapelvic pathology. 2. Cirrhotic liver. Foot CT 11/17/22 21:59 IMPRESSION: 1. No evidence of fracture, focal bone destruction, or soft tissue gas to suggest necrotizing fasciitis. 2. Mid to distal foot subcutaneous edema/cellulitis. If there is concern for early osteomyelitis, an MRI would be more sensitive. 3. Chronic findings above with vascular calcifications and DJD. Lower Extremity CT 11/17/22 21:59 IMPRESSION: 1. No evidence of fracture, focal bone destruction, or soft tissue gas to suggest necrotizing fasciitis. 2. Diffuse lower leg subcutaneous edema/cellulitis with a few chavez skin ulcerations. No definite or sizable abscess on this unenhanced exam. If there is concern for early osteomyelitis, an MRI would be more sensitive. 3. Chronic findings above with vascular calcifications and DJD. Chest X-Ray 11/24/22 08:53 IMPRESSION: 1. Right-sided PICC line looped in the lower one third of the SVC. The tip of the line is directed back cephalad. 2. ET tube and NG tube in satisfactory location. 3. No acute cardiopulmonary process noted. Head CT 11/24/22 22:00 IMPRESSION: No acute intracranial abnormality. Laboratory Results WBC 10.8 10^3/uL (4.0-10.0) H 11/25/22 02:57 Corrected WBC Cancelled 11/22/22 03:22 RBC 2.96 10^6/uL (4.1-5.3) L 11/25/22 02:57 Hgb 9.9 g/dL (11.7-16.6) L 11/25/22 02:57 Hct 30.5 % (42.0-52.0) L 11/25/22 02:57 MCV 103.0 fl (80-94) H 11/25/22 02:57 MCH 33.4 pg (28.0-34.0) 11/25/22 02:57 MCHC 32.5 g/dL (30.0-36.0) 11/25/22 02:57 RDW 11.9 % (12.1-15.1) L 11/25/22 02:57 Plt Count 120 10^3/cmm (130-400) L 11/25/22 02:57 MPV 12.7 fL (7.4-10.4) H 11/25/22 02:57 Gran % Cancelled 11/22/22 03:22 Neut % (Auto) 88.7 % 11/25/22 02:57 Lymph % (Auto) 5.7 % 11/25/22 02:57 Yancey % (Auto) 3.6 % 11/25/22 02:57 Eos % (Auto) 0.0 % 11/25/22 02:57 Baso % (Auto) 0.2 % 11/25/22 02:57 Neut # (Auto) 9.61 10^3/uL (1.8-7.7) H 11/25/22 02:57 Lymph # (Auto) 0.6 10^3/uL (0.8-4.8) L 11/25/22 02:57 Yancey # (Auto) 0.4 10^3/uL (0.2-0.9) 11/25/22 02:57 Eos # (Auto) 0.0 10^3/uL (0.0-0.8) 11/25/22 02:57 Baso # (Auto) 0.0 10^3/uL (0.0-0.1) 11/25/22 02:57 Absolute Gran (auto) Cancelled 11/22/22 03:22 Nucleated RBC % (auto) 0 % 11/25/22 02:57 Total Counted 100 (0-100) 11/17/22 17:05 Atypical Lymphs % 3.0 % (0-5) 11/17/22 17:05 Absolute Neutrophils 27.8 10^3/cmm (1.4-6.5) H 11/17/22 17:05 Segmented Neutrophils 67 % 11/17/22 17:05 Abs Segm Neuts (Man) 20.4 10/cmm (1.6-7.1) H 11/17/22 17:05 Band Neutrophils 24.0 % 11/17/22 17:05 Abs Band Neuts (Man) 7.3 10^3/cmm (0.0-1.2) H 11/17/22 17:05 Absolute Lymphocytes 2.1 10^3/cmm (1.2-3.4) 11/17/22 17:05 Lymphocytes (Manual) 4 % 11/17/22 17:05 Monocytes (Manual) 2.0 % 11/17/22 17:05 Absolute Monocytes 0.6 10^3/cmm (0.1-0.6) 11/17/22 17:05 Eosinophils (Manual) 0 % 11/17/22 17:05 Absolute Eosinophils 0.0 10^3/cmm (0.0-0.7) 11/17/22 17:05 Basophils (Manual) 0.0 % 11/17/22 17:05 Absolute Basophils 0.0 10^3/cmm (0.0-0.2) 11/17/22 17:05 Nucleated RBCs # 0.0 /100WBC 11/25/22 02:57 Platelet Estimate Normal (Normal) 11/17/22 17:05 Giant Platelets 1+ H 11/17/22 17:05 Dimorphic RBCs 4+ H 11/17/22 17:05 Polychromasia 3+ H 11/17/22 17:05 Hypochromasia 1+ H 11/17/22 17:05 Poikilocytosis 4+ H 11/17/22 17:05 Anisocytosis 4+ H 11/17/22 17:05 Microcytosis 4+ H 11/17/22 17:05 Macrocytosis 4+ H 11/17/22 17:05 Spherocytes 4+ 11/17/22 17:05 Tear Drop Cells 3+ 11/17/22 17:05 Phuong Cells 4+ H 11/17/22 17:05 Acanthocytes (Spur) 1+ H 11/17/22 17:05 Schistocytes 3+ H 11/17/22 17:05 ESR 13 mm/hr (0-10) H 11/17/22 22:16 PT 12.50 SECONDS (12.1-14.9) 11/17/22 22:16 INR 0.90 (0.8-1.2) 11/17/22 22:16 APTT 28.4 SECONDS (23.9-36.7) 11/17/22 22:16 Fibrinogen 539 mg/dL (174-498) H 11/17/22 22:16 Fibrin Degrad Products Pos, 10-40 ug/mL (NEG) H 11/17/22 22:16 D-Dimer 3.46 ug/mIFEU (0-0.59) H 11/17/22 22:16 Specimen Type Arterial 11/24/22 04:46 Sample Site Brachial, right 11/24/22 04:46 ABG pH 7.41 (7.35-7.45) 11/24/22 04:46 ABG pCO2 47.2 mmHg (35-45) H 11/24/22 04:46 ABG pO2 75.0 mmHg (80.0-100.0) L 11/24/22 04:46 ABG HCO3 29.7 mmol/L (22-26) H 11/24/22 04:46 ABG O2 Saturation 96.8 11/23/22 12:43 ABG Base Excess 4.2 mmol/L (-2.0-2.0) H 11/24/22 04:46 Catalino Test N/a 11/24/22 04:46 A-a O2 Gradient Not Reportable 11/23/22 12:43 Hematocrit 35.9 % (42-52) L 11/24/22 04:46 Hgb O2 Saturation 95.2 % (95-100) 11/23/22 12:43 Carboxyhemoglobin 1.3 %THgb (0.4-20.1) 11/23/22 12:43 Methemoglobin 0.3 % (0.4-1.5) L 11/23/22 12:43 Total Hemoglobin 10.8 g/dL (14-18) L 11/23/22 12:43 Sodium 142.0 mmol/L (131-143) 11/23/22 12:43 Potassium 3.8 mmol/L (3.5-5.0) 11/23/22 12:43 Glucose 119.0 mg/dL (70-115) H 11/23/22 12:43 Ionized Calcium 1.2 mmol/L (1.1-1.4) 11/23/22 12:43 Respiration Rate 12.0 % 11/23/22 05:10 O2 Delivery Device Vent 11/24/22 04:46 O2 Liters/Min 3.0 % 11/17/22 16:58 Vent Mode vc/ac 11/23/22 05:10 FiO2 24.0 % 11/24/22 04:46 Tidal Volume 0.45 11/24/22 04:46 PEEP 5.0 cmH20 11/24/22 04:46 Specimen Drawn By jeff 11/23/22 05:10 Shank Breaker ID Nicanor 11/24/22 04:46 Sodium 140 mmol/L (136-145) 11/25/22 02:57 Potassium 3.4 mmol/L (3.5-5.1) L 11/25/22 02:57 Chloride 100 mmol/L (98-107) 11/25/22 02:57 Carbon Dioxide 29 mmol/L (22-29) 11/25/22 02:57 Anion Gap 14.4 (5-19) 11/25/22 02:57 BUN 15 mg/dL (8-23) 11/25/22 02:57 Creatinine 0.3 mg/dL (0.7-1.2) L 11/25/22 02:57 GFR Calculation 304.8 mL/min (90-130) H 11/25/22 02:57 Glucose 98 mg/dL (65-115) 11/25/22 02:57 Estimat Average Glucose 108 11/17/22 17:05 Hemoglobin A1c 5.4 % (4.0-6.0) 11/17/22 17:05 Calculated Osmolality 291 mOsm/kg (285-295) 11/25/22 02:57 Lactic Acid 1.3 mmol/L (0.5-2.2) 11/17/22 17:05 Calcium 8.0 mg/dL (8.5-10.5) L 11/25/22 02:57 Phosphorus 4.6 mg/dL (2.5-4.5) H 11/17/22 22:16 Magnesium 2.5 mg/dL (1.7-2.3) H 11/22/22 03:22 Total Bilirubin 0.4 mg/dL (0.15-1.2) 11/22/22 03:22 AST 15 U/L (0-40) 11/22/22 03:22 ALT 9 U/L (0-41) 11/22/22 03:22 Alkaline Phosphatase 75 U/L (40-130) 11/22/22 03:22 Ammonia 55 umol/L (16-60) 11/20/22 12:33 Creatine Kinase 69 U/L (39-308) 11/17/22 22:16 Troponin T Baseline 19 ng/L (0-15) H 11/17/22 22:16 Troponin T 120 Minute 18.39 ng/L (0-15) H 11/17/22 23:46 Delta Troponin T -0.61 ABS# (0-10) L 11/17/22 23:46 Troponin T Hi Sens 6Hr 16.18 ng/L (0-15) H 11/18/22 04:00 Troponin T Hi Sens 6Hr Delta -2.82 ng/L (0-12) L 11/18/22 04:00 C-Reactive Protein 101.3 mg/L (0.0-4.9) H 11/17/22 17:05 NT-Pro-B Natriuret Pep 2405 pg/mL (0-125) H 11/18/22 04:00 Total Protein 7.1 g/dL (6.6-8.7) 11/22/22 03:22 Albumin 2.8 g/dL (3.5-5.2) L 11/22/22 03:22 Globulin 4.3 g/dL (1.3-4.6) 11/22/22 03:22 Lipase 9 U/L (13-60) L 11/17/22 22:16 Vitamin B12 896 pg/mL (232-1245) 11/17/22 22:16 Folate 8.6 ng/mL (4.5-32.2) 11/17/22 17:05 Procalcitonin 1.59 ng/mL (0-0.5) H 11/17/22 17:05 TSH 0.30 uIU/mL (0.27-4.20) 11/17/22 22:16 Random Cortisol 29.34 ug/dL (2.47-19.5) H 11/17/22 17:05 Random Cortisol Cancelled 11/17/22 17:05 Urine Color Yellow (Yellow) 11/17/22 22:16 Urine Appearance Clear (CLEAR) 11/17/22 22:16 Urine pH 5 (5-7) 11/17/22 22:16 Ur Specific [place] 1.015 (1.005-1.030) 11/17/22 22:16 Urine Protein Neg (Negative) 11/17/22 22:16 Urine Glucose (UA) Norm (Normal) 11/17/22 22:16 Urine Ketones Negative (Negative) 11/17/22 22:16 Urine Blood Neg (Negative) 11/17/22 22:16 Urine Nitrate Negative (Negative) 11/17/22 22:16 Urine Bilirubin 2+ (Negative) H 11/17/22 22:16 Urine Urobilinogen Norm mg/dL (Negative) 11/17/22 22:16 Ur Leukocyte Esterase Negative (Negative) 11/17/22 22:16 Vancomycin Trough 6.4 ug/mL (10-15) L 11/24/22 18:19 Urine Opiates Screen Negative ng/mL (Negative) 11/17/22 22:16 Ur Barbiturates Screen Negative ng/mL (Negative) 11/17/22 22:16 Ur Phencyclidine Scrn Negative ng/mL (Negative) 11/17/22 22:16 Ur Amphetamines Screen Negative ng/mL (Negative) 11/17/22 22:16 U Benzodiazepines Scrn Negative ng/mL (Negative) 11/17/22 22:16 Urine Cocaine Screen Negative ng/mL (Negative) 11/17/22 22:16 U Marijuana (THC) Screen Negative ng/mL (Negative) 11/17/22 22:16 Ethyl Alcohol < 10 mg/dL (0-10) 11/17/22 22:16 Hepatitis A IgM Ab Non-reactive (Nonreactive) 11/17/22 17:05 Hep Bs Antigen Non-reactive (Nonreactive) 11/17/22 17:05 Hep B Core IgM Ab Non-reactive (Nonreactive) 11/17/22 17:05 Hepatitis C Antibody Non-reactive (Nonreactive) 11/17/22 17:05 HIV 1&2 Ab & HIV 1 Ag Non-reactive (Non-Reactiv) 11/17/22 17:05 HIV 1&2 Antibody Non-reactive (Non-Reactiv) 11/17/22 17:05 Influenza Type A Ag negative (Negative) 11/17/22 17:17 Influenza Type B Ag negative (Negative) 11/17/22 17:17 SARS-CoV-2 Ag (Rapid) Negative (Negative) 11/17/22 17:17 Vitals Last Vital Signs Temp 98.0 F 11/25/22 04:00 Pulse 76 11/25/22 11:12 Resp 12 11/25/22 11:10 BP 138/77 11/25/22 06:00 Pulse Ox 98 11/25/22 11:10 O2 Del Method 11/25/22 11:05 O2 Flow Rate 2 11/18/22 20:59 FiO2 24 11/25/22 11:10 Discharge Plan Discharge Patient Disposition: Xfer LTC Condition: Stable Prescriptions: Continued pantoprazole [Protonix] 40 mg Tablet,Delayed Release (Dr/Ec) 40 mg PO BID etodolac 400 mg Tablet 400 mg PO BID PRN (Reason: Pain) gabapentin 100 mg Capsule 200 mg PO TID albuterol sulfate 90 mcg/actuation Hfa Aerosol Inhaler 2 puff INHALATION QID PRN (Reason: Shortness Of Breath) budesonide-formoterol 80-4.5 mcg/actuation Hfa Aerosol Inhaler 2 puff INHALATION BID cholecalciferol (vitamin D3) [Vitamin D3] 50 mcg (2,000 unit) Tablet 2,000 unit PO DAILY rivaroxaban 20 mg Tablet 20 mg PO QPM melatonin 3 mg Tablet 9 mg PO BEDTIME guaifenesin 400 mg Tablet 400 mg PO Q4H PRN (Reason: Congestion) acamprosate 333 mg Tablet,Delayed Release (Dr/Ec) 333 mg PO TID Rx Instructions: administer with mid-day and evening meals lactulose 10 gram/15 mL Solution 30 g PO BID PRN (Reason: Delirium) fluticasone propion-salmeterol 100-50 mcg/dose Blister With Device 1 inh INHALATION BID Discharge Orders: Discharge Order (Routine); Ordered 11/25/22 Ordered By: Ozzy Perea Referrals: [place] [facility] [Primary Care Provider] - Patient Instructions: Opioid Safety Discharge Attestations Time Spent in Discharge Care*: less than 30 min Quality Metrics Clinical Quality Measures [ No reported AMI, CVA or VTE this stay] Coding Level of Care Code Acute Chg FW DC note Diagnoses MRSA bacteremia R78.81; B95.62 Staphylococcal pneumonia J15.20 CO2 narcosis R06.89 Unstageable decubitus ulcer L89.95 Hypercapnic respiratory failure J96.92 Altered mental status R41.82 Liver disease K76.9 Atrial flutter I48.92 Acute encephalopathy G93.40 Cellulitis L03.90 Alcohol abuse with withdrawal F10.139 COPD with acute exacerbation J44.1
--- NOTE | 2022-11-25 14:50 | PC.NURSE ---
Report called to [facility]. Report given to Shannan Westfall RN. all questions answered.
[2022-11-25] MEDS: dexmedetomidine 400 MCG in sodium chloride 0.9% (100 ml) 100 ML 12.38 MCG IV (15:44)
[2022-11-25] MEDS: propofol 1,000 MG/100 ML INJ 13.93 MG IV (15:44)
--- NOTE | 2022-11-25 16:00 | PC.NURSE ---
Ambulance crews here, care transferred to crew. Pt discharged to their care
--- NOTE | 2022-11-25 17:10 | P.PN_ITS ---
Subjective Subjective: Currently on fentanyl 150 MCG-and propofol-we will taper down fentanyl and continue with awakening trial/breathing trial -He is requiring only 24% FiO2 on SIMV-we will switch to pressure support earle tilation once more awake and following commands -Other labs and imaging reviewed -Patient may need LTAC placement for severe deconditioning Medications: Reviewed: Yes Vitals/I&O/Wt Last Vital Signs Temp 98 F 11/25/22 13:45 Pulse 100 11/25/22 15:15 Resp 16 11/25/22 15:10 BP 139/74 11/25/22 15:15 Pulse Ox 97 11/25/22 15:15 O2 Del Method 11/25/22 15:10 O2 Flow Rate 2 11/18/22 20:59 FiO2 30 11/25/22 15:10 11/25/22 11/25/22 11/25/22 06:59 14:59 22:59 Intake Total 255.984 / 973.348 508.630 / 508.630 182.889 / 691.519 Output Total 950 / 2050 Balance -694.016 / -1076.652 508.630 / 508.630 182.889 / 691.519 Weight last 48 hrs Weight 134 lb 7.712 oz Physical Exam Narrative: PHYSICAL EXAM: General: lying in bed, sedated and intubated. 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 SKIN: no rash Urinary Catheter Management: Carmichael: Cath Placed During This Visit: yes Reason for Continuing Indwelling Catheter: Accurate Measurement of Urinary Output in Critically Ill Patients Urinary Catheter Date of Insertion: 11/17/22 Urinary Catheter Time of Insertion: 22:19 Data 11/25/22 02:57 11/25/22 02:57 Other Labs: Radiology Impressions Chest/Abdomen/Pelvis CT 11/17/22 18:59 IMPRESSION: 1. No pulmonary embolus. The 2. Centrilobular emphysema. Mild diffuse peribronchial thickening. No consolidation. IMPRESSION: 1. Distended urinary bladder. Urinary retention should be considered in the adequate clinical setting. Otherwise no acute intra-abdominal or intrapelvic pathology. 2. Cirrhotic liver. Foot CT 11/17/22 21:59 IMPRESSION: 1. No evidence of fracture, focal bone destruction, or soft tissue gas to suggest necrotizing fasciitis. 2. Mid to distal foot subcutaneous edema/cellulitis. If there is concern for early osteomyelitis, an MRI would be more sensitive. 3. Chronic findings above with vascular calcifications and DJD. Lower Extremity CT 11/17/22 21:59 IMPRESSION: 1. No evidence of fracture, focal bone destruction, or soft tissue gas to suggest necrotizing fasciitis. 2. Diffuse lower leg subcutaneous edema/cellulitis with a few chavez skin ulcerations. No definite or sizable abscess on this unenhanced exam. If there is concern for early osteomyelitis, an MRI would be more sensitive. 3. Chronic findings above with vascular calcifications and DJD. Chest X-Ray 11/24/22 08:53 IMPRESSION: 1. Right-sided PICC line looped in the lower one third of the SVC. The tip of the line is directed back cephalad. 2. ET tube and NG tube in satisfactory location. 3. No acute cardiopulmonary process noted. Head CT 11/24/22 22:00 IMPRESSION: No acute intracranial abnormality. Laboratory Results WBC 10.8 10^3/uL (4.0-10.0) H 11/25/22 02:57 Corrected WBC Cancelled 11/22/22 03:22 RBC 2.96 10^6/uL (4.1-5.3) L 11/25/22 02:57 Hgb 9.9 g/dL (11.7-16.6) L 11/25/22 02:57 Hct 30.5 % (42.0-52.0) L 11/25/22 02:57 MCV 103.0 fl (80-94) H 11/25/22 02:57 MCH 33.4 pg (28.0-34.0) 11/25/22 02:57 MCHC 32.5 g/dL (30.0-36.0) 11/25/22 02:57 RDW 11.9 % (12.1-15.1) L 11/25/22 02:57 Plt Count 120 10^3/cmm (130-400) L 11/25/22 02:57 MPV 12.7 fL (7.4-10.4) H 11/25/22 02:57 Gran % Cancelled 11/22/22 03:22 Neut % (Auto) 88.7 % 11/25/22 02:57 Lymph % (Auto) 5.7 % 11/25/22 02:57 [place] % (Auto) 3.6 % 11/25/22 02:57 Eos % (Auto) 0.0 % 11/25/22 02:57 Baso % (Auto) 0.2 % 11/25/22 02:57 Neut # (Auto) 9.61 10^3/uL (1.8-7.7) H 11/25/22 02:57 Lymph # (Auto) 0.6 10^3/uL (0.8-4.8) L 11/25/22 02:57 [place] # (Auto) 0.4 10^3/uL (0.2-0.9) 11/25/22 02:57 Eos # (Auto) 0.0 10^3/uL (0.0-0.8) 11/25/22 02:57 Baso # (Auto) 0.0 10^3/uL (0.0-0.1) 11/25/22 02:57 Absolute Gran (auto) Cancelled 11/22/22 03:22 Nucleated RBC % (auto) 0 % 11/25/22 02:57 Total Counted 100 (0-100) 11/17/22 17:05 Atypical Lymphs % 3.0 % (0-5) 11/17/22 17:05 Absolute Neutrophils 27.8 10^3/cmm (1.4-6.5) H 11/17/22 17:05 Segmented Neutrophils 67 % 11/17/22 17:05 Abs Segm Neuts (Man) 20.4 10/cmm (1.6-7.1) H 11/17/22 17:05 Band Neutrophils 24.0 % 11/17/22 17:05 Abs Band Neuts (Man) 7.3 10^3/cmm (0.0-1.2) H 11/17/22 17:05 Absolute Lymphocytes 2.1 10^3/cmm (1.2-3.4) 11/17/22 17:05 Lymphocytes (Manual) 4 % 11/17/22 17:05 Monocytes (Manual) 2.0 % 11/17/22 17:05 Absolute Monocytes 0.6 10^3/cmm (0.1-0.6) 11/17/22 17:05 Eosinophils (Manual) 0 % 11/17/22 17:05 Absolute Eosinophils 0.0 10^3/cmm (0.0-0.7) 11/17/22 17:05 Basophils (Manual) 0.0 % 11/17/22 17:05 Absolute Basophils 0.0 10^3/cmm (0.0-0.2) 11/17/22 17:05 Nucleated RBCs # 0.0 /100WBC 11/25/22 02:57 Platelet Estimate Normal (Normal) 11/17/22 17:05 Giant Platelets 1+ H 11/17/22 17:05 Dimorphic RBCs 4+ H 11/17/22 17:05 Polychromasia 3+ H 11/17/22 17:05 Hypochromasia 1+ H 11/17/22 17:05 Poikilocytosis 4+ H 11/17/22 17:05 Anisocytosis 4+ H 11/17/22 17:05 Microcytosis 4+ H 11/17/22 17:05 Macrocytosis 4+ H 11/17/22 17:05 Spherocytes 4+ 11/17/22 17:05 Tear Drop Cells 3+ 11/17/22 17:05 [place] Cells 4+ H 11/17/22 17:05 Acanthocytes (Spur) 1+ H 11/17/22 17:05 Schistocytes 3+ H 11/17/22 17:05 ESR 13 mm/hr (0-10) H 11/17/22 22:16 PT 12.50 SECONDS (12.1-14.9) 11/17/22 22:16 INR 0.90 (0.8-1.2) 11/17/22 22:16 APTT 28.4 SECONDS (23.9-36.7) 11/17/22 22:16 Fibrinogen 539 mg/dL (174-498) H 11/17/22 22:16 Fibrin Degrad Products Pos, 10-40 ug/mL (NEG) H 11/17/22 22:16 D-Dimer 3.46 ug/mIFEU (0-0.59) H 11/17/22 22:16 Specimen Type Arterial 11/24/22 04:46 Sample Site Brachial, right 11/24/22 04:46 ABG pH 7.41 (7.35-7.45) 11/24/22 04:46 ABG pCO2 47.2 mmHg (35-45) H 11/24/22 04:46 ABG pO2 75.0 mmHg (80.0-100.0) L 11/24/22 04:46 ABG HCO3 29.7 mmol/L (22-26) H 11/24/22 04:46 ABG O2 Saturation 96.8 11/23/22 12:43 ABG Base Excess 4.2 mmol/L (-2.0-2.0) H 11/24/22 04:46 [place] Test N/a 11/24/22 04:46 A-a O2 Gradient Not Reportable 11/23/22 12:43 Hematocrit 35.9 % (42-52) L 11/24/22 04:46 Hgb O2 Saturation 95.2 % (95-100) 11/23/22 12:43 Carboxyhemoglobin 1.3 %THgb (0.4-20.1) 11/23/22 12:43 Methemoglobin 0.3 % (0.4-1.5) L 11/23/22 12:43 Total Hemoglobin 10.8 g/dL (14-18) L 11/23/22 12:43 Sodium 142.0 mmol/L (131-143) 11/23/22 12:43 Potassium 3.8 mmol/L (3.5-5.0) 11/23/22 12:43 Glucose 119.0 mg/dL (70-115) H 11/23/22 12:43 Ionized Calcium 1.2 mmol/L (1.1-1.4) 11/23/22 12:43 Respiration Rate 12.0 % 11/23/22 05:10 O2 Delivery Device Vent 11/24/22 04:46 O2 Liters/Min 3.0 % 11/17/22 16:58 Vent Mode vc/ac 11/23/22 05:10 FiO2 24.0 % 11/24/22 04:46 Tidal Volume 0.45 11/24/22 04:46 PEEP 5.0 cmH20 11/24/22 04:46 Specimen Drawn By jeff 11/23/22 05:10 Dinkey Skinner ID Nicanor 11/24/22 04:46 Sodium 140 mmol/L (136-145) 11/25/22 02:57 Potassium 3.4 mmol/L (3.5-5.1) L 11/25/22 02:57 Chloride 100 mmol/L (98-107) 11/25/22 02:57 Carbon Dioxide 29 mmol/L (22-29) 11/25/22 02:57 Anion Gap 14.4 (5-19) 11/25/22 02:57 BUN 15 mg/dL (8-23) 11/25/22 02:57 Creatinine 0.3 mg/dL (0.7-1.2) L 11/25/22 02:57 GFR Calculation 304.8 mL/min (90-130) H 11/25/22 02:57 Glucose 98 mg/dL (65-115) 11/25/22 02:57 Estimat Average Glucose 108 11/17/22 17:05 Hemoglobin A1c 5.4 % (4.0-6.0) 11/17/22 17:05 Calculated Osmolality 291 mOsm/kg (285-295) 11/25/22 02:57 Lactic Acid 1.3 mmol/L (0.5-2.2) 11/17/22 17:05 Calcium 8.0 mg/dL (8.5-10.5) L 11/25/22 02:57 Phosphorus 4.6 mg/dL (2.5-4.5) H 11/17/22 22:16 Magnesium 2.5 mg/dL (1.7-2.3) H 11/22/22 03:22 Total Bilirubin 0.4 mg/dL (0.15-1.2) 11/22/22 03:22 AST 15 U/L (0-40) 11/22/22 03:22 ALT 9 U/L (0-41) 11/22/22 03:22 Alkaline Phosphatase 75 U/L (40-130) 11/22/22 03:22 Ammonia 55 umol/L (16-60) 11/20/22 12:33 Creatine Kinase 69 U/L (39-308) 11/17/22 22:16 Troponin T Baseline 19 ng/L (0-15) H 11/17/22 22:16 Troponin T 120 Minute 18.39 ng/L (0-15) H 11/17/22 23:46 Delta Troponin T -0.61 ABS# (0-10) L 11/17/22 23:46 Troponin T Hi Sens 6Hr 16.18 ng/L (0-15) H 11/18/22 04:00 Troponin T Hi Sens 6Hr Delta -2.82 ng/L (0-12) L 11/18/22 04:00 C-Reactive Protein 101.3 mg/L (0.0-4.9) H 11/17/22 17:05 NT-Pro-B Natriuret Pep 2405 pg/mL (0-125) H 11/18/22 04:00 Total Protein 7.1 g/dL (6.6-8.7) 11/22/22 03:22 Albumin 2.8 g/dL (3.5-5.2) L 11/22/22 03:22 Globulin 4.3 g/dL (1.3-4.6) 11/22/22 03:22 Lipase 9 U/L (13-60) L 11/17/22 22:16 Vitamin B12 896 pg/mL (232-1245) 11/17/22 22:16 Folate 8.6 ng/mL (4.5-32.2) 11/17/22 17:05 Procalcitonin 1.59 ng/mL (0-0.5) H 11/17/22 17:05 TSH 0.30 uIU/mL (0.27-4.20) 11/17/22 22:16 Random Cortisol 29.34 ug/dL (2.47-19.5) H 11/17/22 17:05 Random Cortisol Cancelled 11/17/22 17:05 Urine Color Yellow (Yellow) 11/17/22 22:16 Urine Appearance Clear (CLEAR) 11/17/22 22:16 Urine pH 5 (5-7) 11/17/22 22:16 Ur Specific [place] 1.015 (1.005-1.030) 11/17/22 22:16 Urine Protein Neg (Negative) 11/17/22 22:16 Urine Glucose (UA) Norm (Normal) 11/17/22 22:16 Urine Ketones Negative (Negative) 11/17/22 22:16 Urine Blood Neg (Negative) 11/17/22 22:16 Urine Nitrate Negative (Negative) 11/17/22 22:16 Urine Bilirubin 2+ (Negative) H 11/17/22 22:16 Urine Urobilinogen Norm mg/dL (Negative) 11/17/22 22:16 Ur Leukocyte Esterase Negative (Negative) 11/17/22 22:16 Vancomycin Trough 6.4 ug/mL (10-15) L 11/24/22 18:19 Urine Opiates Screen Negative ng/mL (Negative) 11/17/22 22:16 Ur Barbiturates Screen Negative ng/mL (Negative) 11/17/22 22:16 Ur Phencyclidine Scrn Negative ng/mL (Negative) 11/17/22 22:16 Ur Amphetamines Screen Negative ng/mL (Negative) 11/17/22 22:16 U Benzodiazepines Scrn Negative ng/mL (Negative) 11/17/22 22:16 Urine Cocaine Screen Negative ng/mL (Negative) 11/17/22 22:16 U Marijuana (THC) Screen Negative ng/mL (Negative) 11/17/22 22:16 Ethyl Alcohol < 10 mg/dL (0-10) 11/17/22 22:16 Hepatitis A IgM Ab Non-reactive (Nonreactive) 11/17/22 17:05 Hep Bs Antigen Non-reactive (Nonreactive) 11/17/22 17:05 Hep B Core IgM Ab Non-reactive (Nonreactive) 11/17/22 17:05 Hepatitis C Antibody Non-reactive (Nonreactive) 11/17/22 17:05 HIV 1&2 Ab & HIV 1 Ag Non-reactive (Non-Reactiv) 11/17/22 17:05 HIV 1&2 Antibody Non-reactive (Non-Reactiv) 11/17/22 17:05 Influenza Type A Ag negative (Negative) 11/17/22 17:17 Influenza Type B Ag negative (Negative) 11/17/22 17:17 SARS-CoV-2 Ag (Rapid) Negative (Negative) 11/17/22 17:17 Micro: Microbiology 11/20/22 04:00 Blood Culture - Final Blood NO GROWTH AFTER 5 DAYS 11/20/22 04:05 Blood Culture - Final Blood NO GROWTH AFTER 5 DAYS A&P Assessment and plan (1) Altered mental status: (2) Liver disease: (3) Goals of care, counseling/discussion: (4) Protein calorie malnutrition: (5) Physical deconditioning: (6) Alcohol abuse with withdrawal: (7) COPD with acute exacerbation: (8) Hypercapnic respiratory failure: (9) CO2 narcosis: (10) Staphylococcal pneumonia: (11) MRSA bacteremia: Plan #Altered mental status-multifactorial in patient with underlying COPD/cirrhosis/sepsis/hypernatremia/alcohol withdrawal -CO2 narcosis-intubated 11/20/2022 to protect airway and for hypercapnia-on mechanical ventilator-we will follow-up with ABGs to adjust settings -Hypernatremia-on free water through PEG tube-improved -CT head 11/18/2022 no acute abnormalities -Patient on CIWA protocol-multivitamins/folic acid/thiamine-no signs of withdrawal-off Versed for more than 48 hours -Ammonia 55 -Sepsis encephalopathy-currently on vancomycin for MRSA bacteremia/staph pneumonia-being treated with vancomycin and his temperature curve/WBC are better -Held Precedex for bradycardia, recommended to taper off fentanyl and propofol- patient opens eyes but does not follow commands-repeat CT head yesterday 11/24/2022 no acute intracranial abnormality; he is moderate diffuse cerebral at rophy and mild sequelae of chronic small vessel ischemic disease. -We will continue with awakening trials #COPD exacerbation most likely secondary to staph pneumonia -ABG showing hypercapnia-intubated; ABG today 7.4 / on CMV 450/5/2 4% FiO2 -Continue scheduled nebulizations and IV steroids and taper based on clinical response #Sepsis-likely MRSA bacteremia from MRSA pneumonia and-cellulitis from left lower leg from previous trauma #MRSA pneumonia -Chemical debridement as per surgery -Blood cultures on admission showed for 4/4 bottles MRSA; repeat blood cultures sent on 11/20/2021-negative so far -Sputum culture 05/20/2022-MRSA pneumonia -Patient is on vancomycin-she will need at least 6 to 8 weeks of vancomycin -Monitor fever curve, WBC counts of all cultures to adjust antibiotics-patient currently able to maintain blood pressure without pressors -Transthoracic echo did not show any vegetations #Liver cirrhosis -Monitor LFTs #Improved BUN and hypernatremia -Likely secondary to dehydration -Currently receiving free water through NG tube -Monitor closely renal functions #Severe protein energy malnutrition -Continue feeding DVT #Goals of care discussion -Discussed with patient's sister at bedside-we will continue with awakening trials followed by breathing trial and plan to extubate when patient is ready- patient may need LTAC placement given his severe deconditioning -I have mentioned that we intubated and there were several reasons for his altered mental status-including hypercapnia/hyponatremia/sepsis and our goal is to treat reversible conditions and see how patient responds.? If he does not improve in the next 48 to 72 hours-we will update family about his prognosis and they can make decisions at that time.? Both sister and mother agreed with the plan ICU CHECKLIST: Problem list updated Verbal orders reviewed and signed Analgesia: Fentanyl Glycemic Control: N/A Nutrition: Jevity at 20 cc/hour Restraint Renewal (within 24 hrs): Yes Ulcer Prophylaxis: Yes PPI Chemical Thromboprophylaxis: Prophylaxis: Lovenox Mechanical Thromboprophylaxis: SCD Need for Central line: N/A Need for Carmichael catheter: Yes Critical Care Time (No Overlap): 45 min Attestations Medical Necessity Statement*: COPD exacerbation secondary to staph pneumonia and patient with MRSA bacteremia-currently intubated-plan is to extubate in next 24 to 48 hours Time Spent in Patient Care: Greater than 35 minutes (>than 50% of time spent in counselling and/or direct pt care on unit) . Critical Care Time: The high probability of a clinically significant, sudden or life threatening deterioration of the patient's? [neurological/pulmonary/infectious/renal]?system(s)? which requires the highest level of physician preparedness to intervene urgently.? I managed/supervised life or organ supporting interventions that required frequent physician assessment.?my full and direct attention, intervention and personal management in the ICU to the direct care of this patient for the period of time indicated above.? Time I spent with family or surrogate(s) is included only if the patient was incapable of providing necessary information or participating in decision making.? Time devoted to teaching and to any procedures I billed separately is not included. Services Provided: Telemetry review Mechanical Ventilation Hemodynamic interpretation, assessment and management Review and interpretation of CXR Review and interpretation of lab values Review and interpretation of microbiologic data and culture results Review of medications and administration Review and interpretation of Nutrition requirements and management Discussion of management with other consultants and services Clinical update to family members [x] Data and vital sign review and interpretation [x] Patient assessment, examination and intervention [x] Documentation [x] Medication orders and management Critical Care Time (min): 45 Coding Level of Care Code Established Pt Acute Code for Chg Fwd Patient Type Established History Comprehensive Exam Comprehensive Medical Decision Making High Complexity Diagnoses Altered mental status R41.82 Liver disease K76.9 Goals of care, counseling/discussion Z71.89 Protein calorie malnutrition E46 Physical deconditioning R53.81 Alcohol abuse with withdrawal F10.139 COPD with acute exacerbation J44.1 Hypercapnic respiratory failure J96.92 CO2 narcosis R06.89 Staphylococcal pneumonia J15.20 MRSA bacteremia R78.81; B95.62 Time Spent (min) 45
== END 2022-11-25 16:10 | DRG 870 ==
LOC: ER 22:13 → ICU 22:24
PROVIDERS: Emergency Medicine; Internal Medicine; Internal Medicine Pulmonary Disease; Admitting Provider Family Medicine; Emergency Provider Emergency Medicine; Visit Provider Internal Medicine
DX: A41.9 Sepsis, unspecified organism (principal); L89.143 Pressure ulcer of left lower back, stage 3; L89.133 Pressure ulcer of right lower back, stage 3; E43 Unspecified severe protein-calorie malnutrition; G93.41 Metabolic encephalopathy; J15.212 Pneumonia due to Methicillin resistant Staphylococcus aureus; J96.01 Acute respiratory failure with hypoxia; M72.6 Necrotizing fasciitis; F10.239 Alcohol dependence with withdrawal, unspecified; J44.1 Chronic obstructive pulmonary disease with (acute) exacerbation; J44.0 Chronic obstructive pulmonary disease with (acute) lower respiratory infection; E87.0 Hyperosmolality and hypernatremia; L03.116 Cellulitis of left lower limb; I48.92 Unspecified atrial flutter; N17.9 Acute kidney failure, unspecified; K70.30 Alcoholic cirrhosis of liver without ascites; D69.59 Other secondary thrombocytopenia; Z68.20 Body mass index [BMI] 20.0-20.9, adult; E86.0 Dehydration; L89.890 Pressure ulcer of other site, unstageable; L89.892 Pressure ulcer of other site, stage 2; Z79.51 Long term (current) use of inhaled steroids; F43.10 Post-traumatic stress disorder, unspecified; M24.59 Contracture, other specified joint
CPT/HCPCS: 36415; 36569; 36600; 51702; 70450; 71045; 71275; 73700; 74177; 80048; 80051; 80053; 80074; 80202; 80306; 80307; 81003; 82140; 82330; 82533; 82550; 82607; 82746; 82803; 82805; 83036; 83605; 83690; 83735; 83880; 84100; 84145; 84443; 84484; 85007; 85025; 85049; 85362; 85378; 85384; 85610; 85651; 85730; 86140; 87040; 87070; 87077; 87086; 87186; 87205; 87426; 87804; 87806; 93005; 93306; 93922; 93971; 94002; 94003; 94640; 94660; 94799; 96365; 96367; 96372; 96375; 99285; 99291; A4570; C9113; J0360; J0692; J1644; J1650; J1940; J2060; J2250; J2270; J2543; J2704; J2920; J2930; J3010; J3370; J3411; J3475; J3480; J3490; J7050; J7613; J7626; J7644; Q9967